=== PATIENT | male | born 1945 | race Caucasian/White ===

== ENCOUNTER 2020-10-17 09:58 | Emergency (ER) | payer MEDICARE ==
[2020-10-17 10:22] VITALS: PULSE 76
[2020-10-17] MEDS ORDERED: MORPHINE SULFATE 4 MG INJ IM ONE (10:42)
[2020-10-17] MEDS ORDERED: MORPHINE SULFATE 4 MG INJ ONE (10:55)
[2020-10-17 11:20] VITALS: O2SAT 96
[2020-10-17] MEDS ORDERED: NORCO 5/325 MG PO ONE ×2 (12:30→12:32)
--- NOTE | 2020-10-17 12:33 | ERPHSYRPT ---
- History of Present Illness Time Seen by Provider: 10/17/20 10:30 Source: patient Exam Limitations: no limitations Patient Subjective Stated Complaint: pt here for chronic back worse for the last month, he has one pain pill left . no injury Triage Nursing Assessment: pt alert, arrived per wc, face mask in place, resp easy, skin w/d/p. has edma to lower legs, able to get from wc to bed with assist of one and cane Physician History: 74 years old male with history of hypertension, hyperlipidemia, diabetes mellitus, chronic back pain who was on [place] for a long time and lately was decreased the dose/frequency and had some issue with filling the prescription presented in the ER with increasing pain in the low back especially in the right sacroiliac area was/hip without any recent fall or trauma. Patient is not very ambulatory at baseline but recently having more declined because of uncontrollable pain. Denies any numbness tingling or weakness of lower extremities. No loss of bowel or bladder control. Patient was coming to hospital for routine lab work check and decided to be seen in the ER to get some pain medication to help relieve. Timing/Duration: week(s), constant, worse Quality: sharp Back Pain Location: lumbar spine, paraspinous muscles Back Pain Radiation: buttocks Severity of Pain-Max: severe Severity of Pain-Current: severe Associated Symptoms: lower back pain, muscle spasms Previous symptoms: same symptoms as today Allergies/Adverse Reactions: brompheniramine maleate [From Dimetapp (brompheniramine-PPA)] Allergy (Intermediate, Verified 07/10/13 12:07) ciprofloxacin [From Cipro] Allergy (Intermediate, Verified 07/10/13 12:07) ciprofloxacin HCl [From Cipro] Allergy (Intermediate, Verified 07/10/13 12:07) phenylpropanolamine HCl [From Dimetapp (brompheniramine-PPA)] Allergy (Intermediate, Verified 07/10/13 12:07) Home Medications: Allopurinol 100 mg [Zyloprim 100 mg] 100 mg PO DAILY 07/10/13 [History] Amlodipine Besylate 10 mg [Norvasc 10 MG] 20 mg PO DAILY 07/10/13 [History] Aspirin EC 325 mg [Ecotrin 325 MG] 325 mg PO DAILY 07/10/13 [History] Esomeprazole Magnesium [Nexium] 40 mg PO DAILY 07/10/13 [History] Ezetimibe [Zetia] 10 mg PO DAILY 07/10/13 [History] Gabapentin 600 mg PO BID 07/10/13 [History] Insulin Glargine [Lantus Insulin] 60 units SQ BID 07/10/13 [History] Montelukast Sodium 10 mg PO DAILY 07/10/13 [History] Potassium Chloride [K-Dur] 20 meq PO BID 07/10/13 [History] Pravastatin Sodium 40 mg PO HS 07/10/13 [History] Hx Tetanus, Diphtheria Vaccination/Date Given: No Hx Influenza Vaccination/Date Given: Yes Hx Pneumococcal Vaccination/Date Given: Yes Immunizations Up to Date: Yes Travel Risk - International Travel Have you traveled outside of the country in past 3 weeks: No - Coronavirus Screening Are you exhibiting any of the following symptoms?: No Close contact with a COVID-19 positive Pt in past 14-21 Days: No - Vaccine Status Have you recieved a Covid-19 vaccination: Yes 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: [facility] - Vaccination Dates Date of 2cond Vaccination (if applicable): august 2020 - Review of Systems Constitutional: No Symptoms Ears, Nose, & Throat: No Symptoms Respiratory: No Symptoms Cardiac: No Symptoms Abdominal/Gastrointestinal: No Symptoms Genitourinary Symptoms: No Symptoms Musculoskeletal: Arthralgias, Back Pain Psychological: No Symptoms Endocrine: No Symptoms Hematologic/Lymphatic: No Symptoms - Past Medical History Pertinent Past Medical History: Yes Neurological History: Peripheral Neuropathy, Stroke ENT History: Cataracts, Glaucoma, Other Cardiac History: Coronary Artery Disease, High Cholesterol, Hypertension, Myocardial Infarction (AR), Peripheral Vascular Disease Respiratory History: No Pertinent History Endocrine Medical History: Diabetes Type I Musculoskeletal History: Arthritis GI Medical History: Hepatitis, Irritable Bowel History: No Pertinent History Psycho-Social History: Anxiety, Depression Male Reproductive Disorders: No Pertinent History Other Medical History: Hepatitis A in 1985 - Past Surgical History Past Surgical History: Yes Neuro Surgical History: No Pertinent History Cardiac: CABG, Cardiac Catheterization Respiratory: No Pertinent History Gastrointestinal: Cholecystectomy Genitourinary: No Pertinent History Musculoskeletal: No Pertinent History Male Surgical History: Vasectomy Other Surgical History: skin cancers - basil cell carcinomas - Social History Smoking Status: Former smoker Exposure to second hand smoke: No Drug Use: none Patient Lives Alone: Yes - Nursing Vital Signs Nursing Vital Signs: Initial Vital Signs Temperature 96.2 F 10/17/20 10:17 Pulse Rate 76 10/17/20 10:17 Respiratory Rate 18 10/17/20 10:17 Blood Pressure 145/65 10/17/20 10:17 O2 Sat by Pulse Oximetry 99 10/17/20 10:17 Pain Scale Pain Intensity [Back] 10 Pain Intensity 8 - Physical Exam General Appearance: no apparent distress, alert Eye Exam: PERRL/EOMI Neck Exam: normal inspection, full range of motion Respiratory Exam: normal breath sounds, lungs clear Cardiovascular Exam: regular rate/rhythm, normal heart sounds Gastrointestinal Exam: soft, normal bowel sounds, No tenderness Back Exam: normal inspection, decreased range of motion, muscle spasm, point tenderness (Minimal lumbar tenderness, more in the lumbar paraspinal area and sacroiliac area bilaterally more on the right side. Straight leg raise test positive on right with 45 degrees elevation. Intact distal neurovascular and lower extremities bilaterally.) Extremity Exam: normal inspection, normal range of motion, pelvis stable Neurologic Exam: alert, oriented x 3, cooperative Skin Exam: normal color SpO2 Interpretation: normal SpO2: 96 O2 Delivery: Room Air Ordered Tests: Medication Summary Discontinued Medications Generic Name Dose Route Start Last Admin Trade Name Freq PRN Reason Stop Dose Admin Hydrocodone Bitart/Acetaminophen 2 tab 10/17/20 12:30 10/17/20 12:38 [place] 5/325 Mg PO 10/17/20 12:31 2 tab STAT ONE Administration Hydrocodone Bitart/Acetaminophen 2 tab 10/17/20 12:32 10/17/20 12:38 [place] 5/325 Mg PO 10/17/20 12:33 2 tab SENT HOME W/ PATIENT ONE Administration Hydrocodone Bitart/Acetaminophen Confirm 10/17/20 12:35 [place] 5/325 Mg Administered 10/17/20 12:36 Dose 4 tab .ROUTE .STK-MED ONE Morphine Sulfate 4 mg 10/17/20 10:42 10/17/20 10:56 Morphine Sulfate 4 Mg Inj IM 10/17/20 10:43 4 mg STAT ONE Administration Morphine Sulfate Confirm 10/17/20 10:55 Morphine Sulfate 4 Mg Inj Administered 10/17/20 10:56 Dose 4 mg .ROUTE .STK-MED ONE - Progress Progress: improved, pain not gone completely, re-examined Progress Note: 10/17/20 12:31 Is given morphine and oral [place], reevaluation feeling better, pain is not completely resolved. Patient has chronic pain, negative neuro exam in lower extremity, do not think needs any imaging but patient does need to follow-up outpatient with primary care or pain management for better control of pain. It was a difficult encounter as patient could not understand why he is not getting pain medications from his primary care or in the ER to go home and also lab could not draw blood for outpatient orders. I think patient's symptoms are chronic and need to see pain management or PCP. He is given 2 tablets to go home and outpatient follow-up with his PCP on Tuesday to see if he can get another prescription. Discussed signs symptoms of worsening needing return to ER which he seems understanding. Stable for discharge. Counseled pt/family regarding: diagnosis, need for follow-up - Departure Departure Disposition: Home Clinical Impression: Acute exacerbation of chronic low back pain Condition: Stable Critical Care Time: No Referrals: PAM PUENTES MD [Primary Care Provider] - Follow Up with PCP/3 days Instructions: Low Back Pain (DC) Additional Instructions: Follow-up with primary care physician for reevaluation. Return to ER for intractable back pain, numbness tingling weakness of lower extremities/loss of bowel or bladder control/perineal numbness.
[2020-10-17] MEDS ORDERED: NORCO 5/325 MG ONE (12:35)
[2020-10-17 13:13] VITALS: BP 113/65
== END 2020-10-17 13:13 | disposition home or self-care (01) ==
LOC: ED 09:58
DX: M54.5 Low back pain (principal); I10 Essential (primary) hypertension; E78.5 Hyperlipidemia, unspecified; E10.9 Type 1 diabetes mellitus without complications; Z79.891 Long term (current) use of opiate analgesic; R25.2 Cramp and spasm; Z79.899 Other long term (current) drug therapy; I25.10 Atherosclerotic heart disease of native coronary artery without angina pectoris
CPT/HCPCS: 36415; 80053; 80061; 82306; 82550; 83036; 83721; 84443; 85025; 96372; 99284; G0103; J2270; A9270-GY

== ENCOUNTER 2021-01-07 09:53 | Day surgery (SDC) | payer MEDICARE ==
[2021-01-07] MEDS ORDERED: Depo-Medrol 40 MG/ML IM ONE (09:54)
[2021-01-07] MEDS ORDERED: Xylocaine 1% Vial 30 ML PF IJ ONE (09:54)
[2021-01-07] MEDS ORDERED: DIPRIVAN 200 MG/20 ML IV ONE (11:41)
[2021-01-07] MEDS ORDERED: Lactated Ringers 1,000 ML IV ONE (12:16)
--- NOTE | 2021-01-07 13:37 | XRAY ---
Indication: Bilateral L4-S1 MBB. Intraoperative fluoroscopy provided for 21 seconds. Single digital spot image submitted for interpretation demonstrates posterior needle tips projecting over the expected left and right L4-S1 nerve roots. Correlate with intraoperative findings/report.
--- NOTE | 2021-01-07 13:40 | XRAY ---
21 seconds fluoroscopy time in surgery for bilateral L4-S1 MBB.
== END 2021-01-07 12:05 | disposition home or self-care (01) ==
LOC: SDC-PAIN 09:53
PROVIDERS: ATTEND Psychiatry & Neurology Pain Medicine
DX: M47.816 Spondylosis without myelopathy or radiculopathy, lumbar region (principal); I10 Essential (primary) hypertension; E78.5 Hyperlipidemia, unspecified; E11.9 Type 2 diabetes mellitus without complications; F41.9 Anxiety disorder, unspecified; F32.9 Major depressive disorder, single episode, unspecified; Z79.899 Other long term (current) drug therapy
CPT/HCPCS: 64493; 64494; 72020; 77002; 82947; J1030; J2001; J2704

== ENCOUNTER 2021-02-18 07:52 | Day surgery (SDC) | payer MEDICARE ==
[2021-02-18] MEDS ORDERED: Depo-Medrol 40 MG/ML IM ONE (07:53)
[2021-02-18] MEDS ORDERED: BUPIVACAINE 0.5% VIAL IJ ONE (07:53)
[2021-02-18] MEDS ORDERED: DIPRIVAN 200 MG/20 ML IV ONE (09:08)
[2021-02-18] MEDS ORDERED: Lactated Ringers 1,000 ML IV ONE (10:02)
--- NOTE | 2021-02-18 11:07 | XRAY ---
14 seconds of fluoroscopy was used in surgery for a bilateral L4-S1 MBB.
--- NOTE | 2021-02-18 11:15 | XRAY ---
Indication: Bilateral L4-S1 MBB. Intraoperative fluoroscopy provided for 14 seconds. Single digital spot image submitted for interpretation demonstrate posterior needle tips projecting over the expected left and right L4-S1 nerve roots. Correlate with intraoperative findings/report.
== END 2021-02-18 09:37 | disposition home or self-care (01) ==
LOC: SDC-PAIN 07:52
PROVIDERS: ATTEND Psychiatry & Neurology Pain Medicine
DX: M47.816 Spondylosis without myelopathy or radiculopathy, lumbar region (principal); I10 Essential (primary) hypertension; E11.9 Type 2 diabetes mellitus without complications; Z79.899 Other long term (current) drug therapy
CPT/HCPCS: 64493; 64494; 72020; 77002; 82947; J1030; J2704

== ENCOUNTER 2021-03-18 07:00 | Day surgery (SDC) | payer MEDICARE ==
[2021-03-18] MEDS ORDERED: Depo-Medrol 40 MG/ML IM ONE (07:01)
[2021-03-18] MEDS ORDERED: BUPIVACAINE 0.5% VIAL IJ ONE (07:01)
[2021-03-18] MEDS ORDERED: Xylocaine 1% Vial 30 ML PF IJ ONE (07:01)
[2021-03-18] MEDS ORDERED: DIPRIVAN 200 MG/20 ML IV ONE (08:15)
[2021-03-18] MEDS ORDERED: Lactated Ringers 1,000 ML IV ONE (09:28)
--- NOTE | 2021-03-18 09:46 | XRAY ---
52 seconds fluoroscopy time in surgery for left L4-S1 RFA.
--- NOTE | 2021-03-18 09:56 | XRAY ---
Indication: Left L4-S1 RFA. Intraoperative fluoroscopy provided for 52 seconds. 3 digital spot image submitted for interpretation demonstrates posterior needle tips projecting over the expected left L4-S1 nerve roots. Correlate with intraoperative findings/report.
== END 2021-03-18 08:49 | disposition home or self-care (01) ==
LOC: SDC-PAIN 07:00
PROVIDERS: ATTEND Psychiatry & Neurology Pain Medicine
DX: M47.816 Spondylosis without myelopathy or radiculopathy, lumbar region (principal); I10 Essential (primary) hypertension; E11.9 Type 2 diabetes mellitus without complications; E78.5 Hyperlipidemia, unspecified; Z79.899 Other long term (current) drug therapy
CPT/HCPCS: 64635; 64636; 72100; 77002; 82947; 99100; J1030; J2001; J2704

== ENCOUNTER 2021-04-01 06:53 | Day surgery (SDC) | payer MEDICARE ==
[2021-04-01] MEDS ORDERED: BUPIVACAINE 0.5% VIAL IJ ONE (06:54)
[2021-04-01] MEDS ORDERED: Depo-Medrol 40 MG/ML IM ONE (06:54)
[2021-04-01] MEDS ORDERED: Xylocaine 1% Vial 30 ML PF IJ ONE (06:54)
[2021-04-01] MEDS ORDERED: DIPRIVAN 200 MG/20 ML IV ONE (08:20)
[2021-04-01] MEDS ORDERED: Lactated Ringers 1,000 ML IV ONE (09:03)
--- NOTE | 2021-04-01 10:30 | XRAY ---
Indication: Right L4-S1 RFA. Intraoperative fluoroscopy provided for 24 seconds. 3 digital spot images submitted for interpretation demonstrates posterior needle tips projecting over the expected right L4-S1 nerve root. Correlate with intraoperative findings/report.
--- NOTE | 2021-04-01 10:33 | XRAY ---
24 seconds fluoroscopy time in surgery for right L4-S1 RFA.
== END 2021-04-01 08:35 | disposition home or self-care (01) ==
LOC: SDC-PAIN 06:53
PROVIDERS: ATTEND Psychiatry & Neurology Pain Medicine
DX: M47.816 Spondylosis without myelopathy or radiculopathy, lumbar region (principal); E11.9 Type 2 diabetes mellitus without complications; Z79.899 Other long term (current) drug therapy
CPT/HCPCS: 64635; 64636; 72100; 77002; 82947; 99100; J1030; J2001; J2704

== ENCOUNTER 2021-06-08 12:28 | Inpatient (IN) | payer MEDICARE ==
[2021-06-08] MEDS ORDERED: Sodium Chloride 0.9% 1000 ML 1,000 ML IV SCH (12:45)
[2021-06-08] MEDS ORDERED: Sodium Chloride 0.9% 1000 ML 1,000 ML ONE (13:00)
[2021-06-08 13:19] LABS: Basophil (Absolute #) 0.02 (0-0.4); Eosinophil % 0.9 % (0.00-5.0); Eosinophil (Absolute #) 0.07 (0-0.5); Hematocrit 40.9 % (42-50); Hemoglobin 13.5 gm/dl (12.5-18.0); Lymphocyte (Absolute #) 2.22 (1.0-4.6); Lymphocytes % 29.2 % (24.0-44.0); Mean Cell Volume 97.6 fl (78-100); Mean Corpuscular Hemoglobin 32.2 pg (26-32); Mean Platelet Volume 9.2 fl (7.5-11.0); Monocyte (Absolute #) 1.09 (0.0-1.3); Monocytes % 14.3 % (0.0-12.0); Neutrophil % 55.3 % (36.0-66.0); Platelet Count 295 K/mm3 (150-450); Red Blood Count 4.19 M/mm3 (4.1-5.6); Red Cell Distribution Width 13.2 % (11.5-14.0); White Blood Count 7.6 K/mm3 (4.0-10.5)
[2021-06-08 13:27] LABS: INR 1.1 (0.8-3.0)
[2021-06-08 13:32] LABS: ALBUMIN 3.9 g/dL (3.5-5.0); ALKALINE PHOSPHATASE 61 U/L (38-126); AMYLASE 43 U/L (30-110); ANION GAP 20.6 MEQ/L (5-15); BLOOD UREA NITROGEN 30 mg/dL (9-20); CHLORIDE 103 mmol/L (98-107); Calcium 9.5 mg/dL (8.4-10.2); Carbon Dioxide 19 mmol/L (22-30); Creatinine 1 1.19 mg/dL (0.66-1.25); EST GLOMERULAR FILTRATION RATE > 60.0 ML/MIN; Glucose 227 mg/dL (74-106); LIPASE 15 U/L (23-300); SGOT/AST 34 U/L (17-59); SGPT/ALT 16 U/L (0-50); SODIUM 138 mmol/L (137-145); Total Protein 7.1 g/dL (6.3-8.2)
[2021-06-08 13:38] LABS: Potassium 4.8 mmol/L (3.5-5.1)
--- NOTE | 2021-06-08 14:16 | XRAY ---
Indication: Pain. Comparison: September 04, 2013. Portable chest remains clear again with incidental right base calcified granuloma. Heart not enlarged again with CABG. Bony thorax intact again with osteopenia and degenerative changes. Impression: Continued nonacute chest with chronic features.
--- NOTE | 2021-06-08 14:16 | XRAY ---
Indication: Status post fall 3 days ago. Multiple contiguous axial images obtained through the head without contrast. Progress comparison: None Age-appropriate global atrophy and mild periventricular degenerative micro-ischemia bilaterally. Remote lacunar infarcts left basal ganglia and posterior limb left internal capsule. No acute intracranial hemorrhage, abnormal extra-axial fluid collection, or mass effect. Fourth ventricle is midline without hydrocephalus. Bony calvarium intact. Minimal mucosal thickening both ethmoid and both maxillary sinuses with tiny fluid level in. Mastoid air cells are clear. Impression: Nonacute senile brain. Remote lacunar infarcts left basal ganglia and left internal capsule. Incidental paranasal sinus disease.
--- NOTE | 2021-06-08 14:20 | XRAY ---
Indication: Back and bilateral hip pain following fall 3 days ago. Multiple contiguous axial images obtained through the abdomen and pelvis without contrast. Comparison: None Lung bases demonstrates minimal subsegmental atelectasis/scarring and small right middle lobe calcified granuloma. Heart not enlarged with CABG. Noncontrasted stomach and bowel loops appear nonobstructed. Minimal scattered descending and sigmoid diverticulosis without diverticulitis. Previous cholecystectomy. 1.1 cm right mid renal cortical cyst. No free fluid/air. Remaining liver, pancreas, spleen, adrenal glands, kidneys, ureters, and bladder are unremarkable for noncontrast exam. Mild scattered vascular calcifications including both renal/intrarenal arteries. Osseous structures intact with osteopenia, mild/moderate ejected changes throughout the thoracolumbar spine, remote L2 superior endplate fracture with approximately 25% height loss. Moderate left and small right fatty inguinal hernias. Impression: 1. Colonic diverticulosis, right renal cyst, diffuse arteriosclerotic disease, chronic bony findings, bilateral fatty inguinal hernias, and old granulomatous disease. 2. Remaining CT abdomen/pelvis without contrast exam is negative.
--- NOTE | 2021-06-08 17:42 | ERPHSYRPT ---
- History of Present Illness Time Seen by Provider: 06/08/21 12:40 Patient Subjective Stated Complaint: PT HERE FOR FREQUENT FALLS AND EMS STATES HE WAS INCONT OF STOOL THIS WEEKEND, PT STATES HE DOES NOT USE A WALKER AND GETS DIZZY AND FALLS, Triage Nursing Assessment: PT ARRIVED PER AMBULANCE, ALERT, ORIENTED, RESP EASY, FACE MASK IN PLACE, HAS BRUISE TO RIGHT SHOULDER, ABRASION TOP OF HEAD, AND OPEN WOUND TO BOTTOM OF LEFT FOOT WITH ABRASION TO 2ND AND 3RD TOES, HE HAS AMPUTAION OF LEFT GREAT TOE Physician History: Patient is a 75-year-old male who presents with a complaint of frequent falls. He has chronic low back pain and refuses to use a walker. He is diabetic and he also complains of a diabetic ulcer x2 on the left foot. He does have chronic back pain. He had some incontinence over the weekend. Timing/Duration: week(s) (1) Severity: moderate Modifying Factors: Improves With: movement Associated Symptoms: weakness Allergies/Adverse Reactions: brompheniramine maleate [From Dimetapp (brompheniramine-PPA)] Allergy (Int ermediate, Verified 07/10/13 12:07) ciprofloxacin [From Cipro] Allergy (Intermediate, Verified 07/10/13 12:07) ciprofloxacin HCl [From Cipro] Allergy (Intermediate, Verified 07/10/13 12:07) phenylpropanolamine HCl [From Dimetapp (brompheniramine-PPA)] Allergy (Intermediate, Verified 07/10/13 12:07) Home Medications: Allopurinol 100 mg [Zyloprim 100 mg] 100 mg PO DAILY 07/10/13 [History] Amlodipine Besylate 10 mg [Norvasc 10 MG] 20 mg PO DAILY 07/10/13 [History] Aspirin EC 325 mg [Ecotrin 325 MG] 81 mg PO DAILY 07/10/13 [History] Insulin Glargine [Lantus Insulin] 60 units SQ BID 07/10/13 [History] Cilostazol 100 mg [Pletal 100 MG] 1 ea DAILY 06/08/21 [History] Pantoprazole Sodium 1 ea DAILY 06/08/21 [History] Rosuvastatin Calcium [Ezallor Sprinkle] 1 ea DAILY 06/08/21 [History] Venlafaxine HCl [Venlafaxine HCl ER] 1 ea DAILY 06/08/21 [History] Hx Tetanus, Diphtheria Vaccination/Date Given: No Hx Influenza Vaccination/Date Given: Yes Hx Pneumococcal Vaccination/Date Given: Yes Immunizations Up to Date: Yes Travel Risk - International Travel Have you traveled outside of the country in past 3 weeks: No - Coronavirus Screening Are you exhibiting any of the following symptoms?: No Close contact with a COVID-19 positive Pt in past 14-21 Days: No - Vaccine Status Have you recieved a Covid-19 vaccination: Yes Knapsack Sprayer: Moderna - Vaccination Dates Date of 2cond Vaccination (if applicable): august 2020 - Review of Systems Constitutional: No Fever, No Chills Eyes: No Symptoms Ears, Nose, & Throat: No Symptoms Respiratory: No Cough, No Dyspnea Cardiac: No Chest Pain, No Edema, No Syncope Abdominal/Gastrointestinal: No Abdominal Pain, No Nausea, No Vomiting, No Diarrhea Genitourinary Symptoms: No Dysuria Musculoskeletal: No Back Pain, No Neck Pain Skin: No Rash Neurological: Dizziness, Gait Changes, Headache, Lethargy, No Focal Weakness, No Sensory Changes Psychological: No Symptoms Endocrine: No Symptoms All Other Systems: Reviewed and Negative - Past Medical History Pertinent Past Medical History: Yes Neurological History: Peripheral Neuropathy, Stroke ENT History: Cataracts, Glaucoma, Other Cardiac History: Coronary Artery Disease, High Cholesterol, Hypertension, Myocardial Infarction (CT), Peripheral Vascular Disease Respiratory History: No Pertinent History Endocrine Medical History: Diabetes Type I Musculoskeletal History: Arthritis GI Medical History: Hepatitis, Irritable Bowel History: No Pertinent History Psycho-Social History: Anxiety, Depression Male Reproductive Disorders: No Pertinent History Other Medical History: Hepatitis A in 1985 - Past Surgical History Past Surgical History: Yes Neuro Surgical History: No Pertinent History Cardiac: CABG, Cardiac Catheterization Respiratory: No Pertinent History Gastrointestinal: Cholecystectomy Genitourinary: No Pertinent History Musculoskeletal: No Pertinent History Male Surgical History: Vasectomy Other Surgical History: skin cancers - basil cell carcinomas - Social History Smoking Status: Former smoker Exposure to second hand smoke: No Drug Use: none Patient Lives Alone: Yes - Nursing Vital Signs Nursing Vital Signs: Initial Vital Signs Temperature 97.5 F 06/08/21 12:33 Pulse Rate 113 H 06/08/21 12:33 Respiratory Rate 18 06/08/21 12:33 Blood Pressure 140/77 06/08/21 12:33 Pain Scale Pain Intensity 7 - Physical Exam General Appearance: mild distress, alert Eye Exam: PERRL/EOMI, eyes nml inspection Ears, Nose, Throat Exam: normal ENT inspection, TMs normal, pharynx normal, mo ist mucous membranes Neck Exam: normal inspection, non-tender, supple, full range of motion Respiratory Exam: normal breath sounds, lungs clear, No respiratory distress Cardiovascular Exam: regular rate/rhythm, normal heart sounds, normal peripheral pulses Gastrointestinal/Abdomen Exam: soft, normal bowel sounds, No tenderness, No mass Back Exam: normal inspection, normal range of motion, No CVA tenderness, No vertebral tenderness Extremity Exam: normal inspection, normal range of motion, pelvis stable Neurologic Exam: alert, oriented x 3, cooperative, normal mood/affect, nml cerebellar function, nml station & gait, sensation nml, No motor deficits Skin Exam: normal color, warm, dry, No rash Lymphatic Exam: No adenopathy SpO2: 97 - Course Nursing assessment & vital signs reviewed: Yes EKG Interpreted by Me: RATE (114), Sinus Tach, Other (Left axis deviation and left anterior fascicular block) - Radiology Exams Chest X-ray Interpretation: Interpreted by me, Other (No acute findings) - CT Exams Head CT Interpretation: Tele-radiologist Report Abdomen/Pelvis CT Interpretation: Tele-radiologist Report, Other Ordered Tests: Active Orders 24 hr Category Date Time Status EKG-ER Only STAT Care 06/08/21 12:36 Active IV Insertion STAT Care 06/08/21 12:36 Active cath [Cath for Specimen-Straight] STAT Care 06/08/21 14:51 Active ABDOMEN AND PELVIS W/0 CONTRAS [CT] Stat Exams 06/08/21 13:55 Completed CHEST 1 VIEW (PORTABLE) Stat Exams 06/08/21 12:37 Completed HEAD WITHOUT CONTRAST [CT] Stat Exams 06/08/21 12:41 Completed AMYLASE Stat Lab 06/08/21 12:44 Completed BLOOD CULTURE Stat Lab 06/08/21 13:35 Received CBC W DIFF Stat Lab 06/08/21 12:45 Completed CMP Stat Lab 06/08/21 12:44 Completed LIPASE Stat Lab 06/08/21 12:44 Completed Lactic Acid Stat Lab 06/08/21 12:44 Completed Lactic Acid Stat Lab 06/08/21 15:30 Received PROTIME WITH INR Stat Lab 06/08/21 12:44 Completed TROPONIN Q3H Lab 06/08/21 12:45 Completed TROPONIN Q3H Lab 06/08/21 15:00 Completed TROPONIN Q3H Lab 06/08/21 18:45 Ordered TROPONIN Q3H Lab 06/08/21 21:45 Ordered TROPONIN Q3H Lab 06/09/21 00:45 Ordered UA W/RFX CULTURE Stat Lab 06/08/21 14:51 Ordered Medication Summary Generic Name Dose Route Start Last Admin Trade Name Jolene PRN Reason Stop Dose Admin Sodium Chloride 1,000 mls @ 200 mls/hr 06/08/21 12:45 06/08/21 13:02 Sodium Chloride 0.9% 1000 Ml IV 07/08/21 12:44 200 mls/hr .Q5H AMBROSE Administration Lab/Rad Data: Laboratory Result Diagrams 06/08/21 12:45 06/08/21 12:44 Laboratory Results 06/08/21 06/08/21 06/08/21 Range/Units 15:00 12:45 12:45 WBC 7.6 (4.0-10.5) K/mm3 RBC 4.19 (4.1-5.6) M/mm3 Hgb 13.5 (12.5-18.0) gm/dl Hct 40.9 L (42-50) % MCV 97.6 (78-100) fl MCH 32.2 H (26-32) pg MCHC 33.0 (32-36) g/dl RDW 13.2 (11.5-14.0) % Plt Count 295 (150-450) K/mm3 MPV 9.2 (7.5-11.0) fl Gran % 55.3 (36.0-66.0) % Eos # (Auto) 0.07 (0-0.5) Absolute Lymphs (auto) 2.22 (1.0-4.6) Absolute Monos (auto) 1.09 (0.0-1.3) Lymphocytes % 29.2 (24.0-44.0) % Monocytes % 14.3 H (0.0-12.0) % Eosinophils % 0.9 (0.00-5.0) % Basophils % 0.3 (0.0-0.4) % Absolute Granulocytes 4.20 (1.4-6.9) Basophils # 0.02 (0-0.4) PT (9.4-12.5) SECONDS INR (0.8-3.0) Sodium (137-145) mmol/L Potassium (3.5-5.1) mmol/L Chloride (98-107) mmol/L Carbon Dioxide (22-30) mmol/L Anion Gap (5-15) MEQ/L BUN (9-20) mg/dL Creatinine (0.66-1.25) mg/dL Estimated GFR ML/MIN Glucose (74-106) mg/dL Lactic Acid (0.4-2.0) Calcium (8.4-10.2) mg/dL Total Bilirubin (0.2-1.3) mg/dL AST (17-59) U/L ALT (0-50) U/L Alkaline Phosphatase (38-126) U/L Troponin I 0.039 H* 0.041 H* (0.000-0.034) ng/mL Serum Total Protein (6.3-8.2) g/dL Albumin (3.5-5.0) g/dL Amylase (30-110) U/L Lipase (23-300) U/L 06/08/21 06/08/21 06/08/21 Range/Units 12:44 12:44 12:44 WBC (4.0-10.5) K/mm3 RBC (4.1-5.6) M/mm3 Hgb (12.5-18.0) gm/dl Hct (42-50) % MCV (78-100) fl MCH (26-32) pg MCHC (32-36) g/dl RDW (11.5-14.0) % Plt Count (150-450) K/mm3 MPV (7.5-11.0) fl Gran % (36.0-66.0) % Eos # (Auto) (0-0.5) Absolute Lymphs (auto) (1.0-4.6) Absolute Monos (auto) (0.0-1.3) Lymphocytes % (24.0-44.0) % Monocytes % (0.0-12.0) % Eosinophils % (0.00-5.0) % Basophils % (0.0-0.4) % Absolute Granulocytes (1.4-6.9) Basophils # (0-0.4) PT 13.0 H (9.4-12.5) SECONDS INR 1.10 (0.8-3.0) Sodium 138 (137-145) mmol/L Potassium 4.8 (3.5-5.1) mmol/L Chloride 103 (98-107) mmol/L Carbon Dioxide 19 L (22-30) mmol/L Anion Gap 20.6 H (5-15) MEQ/L BUN 30 H (9-20) mg/dL Creatinine 1.19 (0.66-1.25) mg/dL Estimated GFR > 60.0 ML/MIN Glucose 227 H (74-106) mg/dL Lactic Acid 2.1 H (0.4-2.0) Calcium 9.5 (8.4-10.2) mg/dL Total Bilirubin 0.90 (0.2-1.3) mg/dL AST 34 (17-59) U/L ALT 16 (0-50) U/L Alkaline Phosphatase 61 (38-126) U/L Troponin I (0.000-0.034) ng/mL Serum Total Protein 7.1 (6.3-8.2) g/dL Albumin 3.9 (3.5-5.0) g/dL Amylase 43 (30-110) U/L Lipase 15 L (23-300) U/L - Progress Progress: unchanged Discussed with : Ladonna (Discussed with Dr. Jerez patient will be admitted observation for MRI tomorrow and a podiatry referral and consultation) - Departure Departure Disposition: Observation Clinical Impression: Falls frequently, Lacunar infarction, Diabetic ulcer of left foot Condition: Fair Critical Care Time: No Referrals: PAM PUENTES MD [Primary Care Provider] - Follow up/PCP as directed
[2021-06-08 18:28] LABS: INFLUENZA A NEGATIVE (NEGATIVE); INFLUENZA B NEGATIVE (NEGATIVE); RESPIRATORY SYNCTIAL VIRUS NEGATIVE (Negative); SARS-CoV-2 Xpert Express NEGATIVE (NEGATIVE)
[2021-06-08 18:47] LABS: Appearance CLEAR (CLEAR); Bilirubin MODERATE (NEGATIVE); Dipstick done @ ? MAIN LAB; Glucose 500 mg/dL (NEGATIVE); Ketones SMALL-15 (NEGATIVE); Nitrite NEGATIVE (NEGATIVE); Ph 5.5 (5-6); Protein,Urine Dip NEGATIVE (Negative); RBC NEGATIVE Ery/ul (0-5); Specific Gravity >=1.030 (1.005-1.025); Urobilinogen 0.2 mg/dL (0-1)
[2021-06-08 18:48] LABS: Mucus SLIGHT /HPF (NEGATIVE); Urine Cultured Indicated? YES; WBC 0-2 /HPF (0-5)
[2021-06-08 19:29] LABS: TSH, 3RD Generation 2.19 mIU/L (0.47-4.68)
[2021-06-08] MEDS: Sodium Chloride 0.9% 1000 ML 1,000 ML IV SCH (21:26)
[2021-06-08] MEDS ORDERED: Lantus Insulin SQ ONE (22:13)
[2021-06-08] MEDS: HUMALOG SQ PRN (22:26)
[2021-06-09 05:00] LABS: Absolute Neutrophil Ct (ANC) 2.66 (1.4-6.9); Basophil (Absolute #) 0.02 (0-0.4); Eosinophil % 3.5 % (0.00-5.0); Eosinophil (Absolute #) 0.23 (0-0.5); Hematocrit 38.8 % (42-50); Hemoglobin 12.8 gm/dl (12.5-18.0); Lymphocytes % 41.3 % (24.0-44.0); Mean Cell Volume 98.5 fl (78-100); Mean Corpuscular Hemoglobin 32.5 pg (26-32); Mean Platelet Volume 8.9 fl (7.5-11.0); Monocyte (Absolute #) 0.93 (0.0-1.3); Monocytes % 14.2 % (0.0-12.0); Neutrophil % 40.7 % (36.0-66.0); Platelet Count 273 K/mm3 (150-450); Red Blood Count 3.94 M/mm3 (4.1-5.6); White Blood Count 6.5 K/mm3 (4.0-10.5)
[2021-06-09 05:21] LABS: ALBUMIN 3.4 g/dL (3.5-5.0); ALKALINE PHOSPHATASE 56 U/L (38-126); ANION GAP 13.4 MEQ/L (5-15); BLOOD UREA NITROGEN 23 mg/dL (9-20); CHLORIDE 106 mmol/L (98-107); Calcium 8.9 mg/dL (8.4-10.2); Carbon Dioxide 24 mmol/L (22-30); Creatinine 1 1.08 mg/dL (0.66-1.25); EST GLOMERULAR FILTRATION RATE > 60.0 ML/MIN; Glucose 98 mg/dL (74-106); Potassium 3.7 mmol/L (3.5-5.1); SGOT/AST 25 U/L (17-59); SGPT/ALT 13 U/L (0-50); SODIUM 139 mmol/L (137-145); Total Protein 6.6 g/dL (6.3-8.2)
[2021-06-09] MEDS: Sodium Chloride 0.9% 1000 ML 1,000 ML IV SCH ×2 (06:17→19:57)
[2021-06-09] MEDS ORDERED: MEDICATION INTERVENTION MC SCH (07:30)
[2021-06-09] MEDS: Pletal 100 MG PO SCH (09:32)
[2021-06-09] MEDS: Effexor XR 75 MG PO SCH (09:32)
[2021-06-09] MEDS: Tricor 145 MG PO SCH (09:33)
[2021-06-09] MEDS: ECOTRIN 81 MG PO SCH (09:33)
[2021-06-09] MEDS: ZOCOR 20MG PO SCH (09:34)
[2021-06-09] MEDS: Zestril 20 MG PO SCH (09:34)
[2021-06-09] MEDS: ZYLOPRIM 100 MG PO SCH (09:34)
[2021-06-09] MEDS: Protonix 40MG Tablet PO SCH (09:34)
[2021-06-09] MEDS ORDERED: Ecotrin 325 MG PO SCH (10:00)
[2021-06-09] MEDS ORDERED: Effexor ER 37.5 MG PO SCH (10:00)
[2021-06-09] MEDS ORDERED: NON-FORMULARY ITEM (Bisoprolol Fumarate [Bisoprolol Fumarate] 10 MG Tablet) PO SCH (10:00)
[2021-06-09] MEDS ORDERED: FENOFIBRATE 40 MG PO SCH (10:00)
[2021-06-09] MEDS ORDERED: ROSUVASTATIN CALCIUM 20 MG PO SCH (10:00)
[2021-06-09] MEDS: HUMALOG SQ PRN ×3 (12:31→22:08)
--- NOTE | 2021-06-09 12:37 | XRAY ---
Indication: Weakness. Recent falls. Nonacute CT head one day earlier. Sagittal, coronal, and axial MRI brain performed without contrast using T1, T2, FLAIR, diffusion, and ADC sequences. Comparison: None Exam was ordered with contrast but patient refused. Age-appropriate global atrophy with tiny remote lacunar infarct left basal ganglia/posterior limb internal capsule. Brainstem demonstrates a few petechial degenerative micro-ischemia signal. Diffusion images are negative for restricted signal. No acute intracranial hemorrhage, abnormal extra-axial fluid collection, or mass effect. Fourth ventricle is midline without hydrocephalus. Normal flow void signal within the major intracerebral circulation. 7/8 cranial nerve complex bilaterally symmetric. Normal flow-void signal within the major intracerebral circulation. Normal appearing craniocervical junction and sella turcica. Minimal mucosal thickening visualized paranasal sinuses bilaterally. Impression: 1. Atrophy and degenerative micro-ischemia within normal limits for patient's age. Tiny remote lacunar infarct left basal ganglia/internal capsule. 2. No acute intracranial abnormalities or evidence for evolving large vessel territorial stroke. 3. Incidental paranasal sinus disease.
[2021-06-09] MEDS ORDERED: Zofran 4 MG/2 ML VIAL IV PRN (14:51)
[2021-06-09] MEDS ORDERED: Lopressor 50 MG PO ONE (16:00)
[2021-06-09] MEDS ORDERED: Lantus Insulin SQ ONE (22:00)
[2021-06-09] MEDS: Lantus Insulin SQ SCH (22:08)
[2021-06-10] MEDS: Sodium Chloride 0.9% 1000 ML 1,000 ML IV SCH ×2 (05:50→15:43)
[2021-06-10] MEDS: PATIENT OWN MEDICATION PO SCH (09:53)
[2021-06-10] MEDS: ZOCOR 20MG PO SCH (09:54)
[2021-06-10] MEDS: ZYLOPRIM 100 MG PO SCH (09:54)
[2021-06-10] MEDS: Protonix 40MG Tablet PO SCH (09:54)
[2021-06-10] MEDS: ECOTRIN 81 MG PO SCH (09:54)
[2021-06-10] MEDS: Effexor XR 75 MG PO SCH (09:55)
[2021-06-10] MEDS: JARDIANCE PO SCH (09:56)
[2021-06-10] MEDS: Pletal 100 MG PO SCH (09:56)
[2021-06-10] MEDS: Lantus Insulin SQ SCH ×2 (09:56→22:44)
[2021-06-10] MEDS: Zestril 20 MG PO SCH (09:56)
[2021-06-10] MEDS: LOTRIMIN CREAM 30 GM TP SCH ×2 (09:56→22:44)
[2021-06-10] MEDS: Tricor 145 MG PO SCH (09:57)
[2021-06-10] MEDS: HUMALOG SQ PRN (12:10)
[2021-06-11 05:08] LABS: Absolute Neutrophil Ct (ANC) 2.91 (1.4-6.9); Basophil (Absolute #) 0.01 (0-0.4); Eosinophil % 3.5 % (0.00-5.0); Eosinophil (Absolute #) 0.19 (0-0.5); Hematocrit 37.2 % (42-50); Hemoglobin 12.1 gm/dl (12.5-18.0); Lymphocyte (Absolute #) 1.73 (1.0-4.6); Lymphocytes % 31.7 % (24.0-44.0); Mean Cell Volume 98.2 fl (78-100); Mean Corpuscular Hemoglobin 31.9 pg (26-32); Mean Corpuscular Hgb Concent. 32.5 g/dl (32-36); Mean Platelet Volume 8.8 fl (7.5-11.0); Monocyte (Absolute #) 0.62 (0.0-1.3); Monocytes % 11.4 % (0.0-12.0); Neutrophil % 53.2 % (36.0-66.0); Platelet Count 252 K/mm3 (150-450); Red Blood Count 3.79 M/mm3 (4.1-5.6); Red Cell Distribution Width 12.8 % (11.5-14.0); White Blood Count 5.5 K/mm3 (4.0-10.5)
[2021-06-11] MEDS: ECOTRIN 81 MG PO SCH (09:51)
[2021-06-11] MEDS: Effexor XR 75 MG PO SCH (09:51)
[2021-06-11] MEDS: Lantus Insulin SQ SCH (09:52)
[2021-06-11] MEDS: LOTRIMIN CREAM 30 GM TP SCH ×2 (09:52→21:34)
[2021-06-11] MEDS: JARDIANCE PO SCH (09:52)
[2021-06-11] MEDS: PATIENT OWN MEDICATION PO SCH (09:53)
[2021-06-11] MEDS: Tricor 145 MG PO SCH (09:54)
[2021-06-11] MEDS: Pletal 100 MG PO SCH (09:54)
[2021-06-11] MEDS: Protonix 40MG Tablet PO SCH (09:54)
[2021-06-11] MEDS: Zestril 20 MG PO SCH (09:55)
[2021-06-11] MEDS: ZYLOPRIM 100 MG PO SCH (09:55)
[2021-06-11] MEDS: ZOCOR 20MG PO SCH (09:55)
[2021-06-11] MEDS: Sodium Chloride 0.9% 1000 ML 1,000 ML IV SCH (17:10)
[2021-06-11] MEDS: HUMALOG SQ PRN (17:11)
[2021-06-11] MEDS ORDERED: Lantus Insulin SQ SCH (22:00)
--- NOTE | 2021-06-11 23:54 | PCM.HP ---
History of Present Illness - Chief Complaint Chief Complaint: falls Date: 06/09/21 History of Present Illness: is a 75 year old male patient of Dr Sara Kramer who presented to ER after dizziness and falls,abrasion to tj of head and bruised right shoulder.. He has remote Hx CVA,chronic back pain ,peripheral nueropathy but has refused to use a walker. PMHx includes IDDM2 ,S/P amputation left great toe,HTN,HLD,CAD/MT,PVD,Arthritis,Hx basal cell skin cancer,depression/anxiety,Hx Hepatitis A 1985. Patient is admitted to [facility] for observation and inpatient MRI of rain and Podiatry consult re left foot ulcer. - Review of Systems Constitutional: Lethargy, Weakness (generalized) Eyes: No Symptoms Ears, Nose, & Throat: No Symptoms Respiratory: No Symptoms Cardiac: No Symptoms Abdominal/Gastrointestinal: No Symptoms Genitourinary Symptoms: No Symptoms Musculoskeletal: Arthralgias (chronic), Back Pain (chronic) Skin: Other (minoe abrasion and bruising top of head and right shoulder) Neurological: Dizziness, Lethargy Psychological: Anxiety, Depression (mood stable) Medications & Allergies Home Medications: Home Medication List Allopurinol 100 mg [Zyloprim 100 mg] 100 mg PO DAILY 07/10/13 [History Confirmed 06/08/21] Aspirin EC 325 mg [Ecotrin 325 MG] 81 mg PO DAILY 07/10/13 [History Confirmed 06/08/21] Bisoprolol Fumarate 10 mg PO DAILY 06/08/21 [History Confirmed 06/08/21] Cilostazol 100 mg [Pletal 100 MG] 100 mg PO DAILY 06/08/21 [History Confirmed 06/08/21] Fenofibrate 67 mg PO DAILY 06/08/21 [History Confirmed 06/08/21] Lisinopril 20 mg [Zestril 20 MG] 20 mg PO DAILY 06/08/21 [History Confirmed 06/08/21] Pantoprazole Sodium 40 mg PO DAILY 06/08/21 [History Confirmed 06/08/21] Rosuvastatin Calcium [Ezallor Sprinkle] 20 mg PO DAILY 06/08/21 [History Confirmed 06/08/21] Venlafaxine HCl [Venlafaxine HCl ER] 150 mg PO DAILY 06/08/21 [History Confirmed 06/08/21] Clotrimazole Cream 30 gm [Lotrimin Cream 30 gm] 1 applic TP BID #30 units 06/13/21 [Rx] Insulin Degludec [Tresiba Flextouch U-100] 30 unit SQ HS #0 06/13/21 [Rx Confirmed 06/08/21] Allergies/Adverse Reactions: Allergies Allergy/AdvReac Type Severity Reaction Status Date / Time brompheniramine maleate Allergy Intermediate Verified 07/10/13 12:07 [From Dimetapp (brompheniramine-PPA)] ciprofloxacin [From Cipro] Allergy Intermediate Verified 07/10/13 12:07 ciprofloxacin HCl Allergy Intermediate Verified 07/10/13 12:07 [From Cipro] phenylpropanolamine HCl Allergy Intermediate Verified 07/10/13 12:07 [From Dimetapp (brompheniramine-PPA)] - Past Medical History Past Medical History: Yes Neurological History: Peripheral Neuropathy, Stroke ENT History: Cataracts, Glaucoma, Other Cardiac History: Coronary Artery Disease, High Cholesterol, Hypertension, Myocardial Infarction (MT), Peripheral Vascular Disease Respiratory History: No Pertinent History Endocrine Medical History: Diabetes Type II, Hypoglycemia Musculoskelatal History: Arthritis GI Medical History: Hepatitis, Irritable Bowel History: No Pertinent History Pyscho-Social History: Anxiety, Depression Male Reproductive Disorders: No Pertinent History Comment: Hepatitis A in 1985 - Past Surgical History Past Surgical History: Yes Neuro Surgical History: No Pertinent History Cardiac History: CABG, Cardiac Catheterization Respiratory Surgery: No Pertinent History GI Surgical History: Cholecystectomy Genitourinary Surgical Hx: No Pertinent History Musculskeletal Surgical Hx: No Pertinent History Male Surgical History: Vasectomy Other Surgical History: 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 - Social History Smoking Status: Former smoker Exposure to second hand smoke: No Alcohol: None Drug Use: none - Physical Exam Vital Signs: Vital Signs - 24 hr Temp Pulse Resp BP Pulse Ox 06/11/21 21:00 98.2 F 83 22 136/63 92 L 06/11/21 19:13 92 L 06/11/21 16:41 98.9 F 71 16 118/56 92 L 06/11/21 12:18 98.6 F 74 18 141/72 91 L 06/11/21 09:58 86 137/65 06/11/21 07:59 99.0 F 88 18 108/54 91 L 06/11/21 07:32 92 L 06/11/21 04:00 98.0 F 95 H 24 169/76 97 06/10/21 23:43 98.0 F 75 20 131/83 98 General Appearance: no apparent distress (lying down ,does not sit up to talk), lethargy Neurologic Exam: alert, oriented x 3, normal mood/affect (normal speech and mentation) Eye Exam: eyes nml inspection Ears, Nose, Throat Exam: normal ENT inspection Neck Exam: normal inspection Respiratory Exam: normal breath sounds Cardiovascular Exam: regular rate/rhythm Gastrointestinal/Abdomen Exam: soft, normal bowel sounds (nontender) Rectal Exam: not done Back Exam: normal inspection Extremity Exam: amputations (left great toe), other (bruise right shoulder) Skin Exam: normal color, warm, dry, abrasion (head), other (ulcer ,dry left foot) Results - Labs Lab/Micro Results: Lab Results-Last 24 Hours 06/11/21 06/11/21 06/11/21 Range/Units 04:01 04:25 04:25 WBC 5.5 (4.0-10.5) K/mm3 RBC 3.79 L (4.1-5.6) M/mm3 Hgb 12.1 L (12.5-18.0) gm/dl Hct 37.2 L (42-50) % MCV 98.2 (78-100) fl MCH 31.9 (26-32) pg MCHC 32.5 (32-36) g/dl RDW 12.8 (11.5-14.0) % Plt Count 252 (150-450) K/mm3 MPV 8.8 (7.5-11.0) fl Gran % 53.2 (36.0-66.0) % Eos # (Auto) 0.19 (0-0.5) Absolute Lymphs (auto) 1.73 (1.0-4.6) Absolute Monos (auto) 0.62 (0.0-1.3) Lymphocytes % 31.7 (24.0-44.0) % Monocytes % 11.4 (0.0-12.0) % Eosinophils % 3.5 (0.00-5.0) % Basophils % 0.2 (0.0-0.4) % Absolute Granulocytes 2.91 (1.4-6.9) Basophils # 0.01 (0-0.4) Glucose 63 L (74-106) mg/dL POC Glucometer 47 L* (50 to 500) mg/dL 06/11/21 06/11/21 06/11/21 Range/Units 05:42 07:43 11:35 WBC (4.0-10.5) K/mm3 RBC (4.1-5.6) M/mm3 Hgb (12.5-18.0) gm/dl Hct (42-50) % MCV (78-100) fl MCH (26-32) pg MCHC (32-36) g/dl RDW (11.5-14.0) % Plt Count (150-450) K/mm3 MPV (7.5-11.0) fl Gran % (36.0-66.0) % Eos # (Auto) (0-0.5) Absolute Lymphs (auto) (1.0-4.6) Absolute Monos (auto) (0.0-1.3) Lymphocytes % (24.0-44.0) % Monocytes % (0.0-12.0) % Eosinophils % (0.00-5.0) % Basophils % (0.0-0.4) % Absolute Granulocytes (1.4-6.9) Basophils # (0-0.4) Glucose (74-106) mg/dL POC Glucometer 96 124 H 131 H (50 to 500) mg/dL 06/11/21 06/11/21 Range/Units 16:15 21:48 WBC (4.0-10.5) K/mm3 RBC (4.1-5.6) M/mm3 Hgb (12.5-18.0) gm/dl Hct (42-50) % MCV (78-100) fl MCH (26-32) pg MCHC (32-36) g/dl RDW (11.5-14.0) % Plt Count (150-450) K/mm3 MPV (7.5-11.0) fl Gran % (36.0-66.0) % Eos # (Auto) (0-0.5) Absolute Lymphs (auto) (1.0-4.6) Absolute Monos (auto) (0.0-1.3) Lymphocytes % (24.0-44.0) % Monocytes % (0.0-12.0) % Eosinophils % (0.00-5.0) % Basophils % (0.0-0.4) % Absolute Granulocytes (1.4-6.9) Basophils # (0-0.4) Glucose (74-106) mg/dL POC Glucometer 164 H 268 H (50 to 500) mg/dL Microbiology 06/08/21 14:51 Urine Culture - Final Catherized NO GROWTH 06/08/21 13:35 Blood Culture - Preliminary Blood NO GROWTH TO DATE 06/08/21 13:20 Blood Culture - Preliminary Blood NO GROWTH TO DATE Accuchecks Date 06/11/21 Date 06/11/21 Date 06/11/21 Time 16:39 Time 12:16 Time 08:02 Assessment/Plan (1) Falls frequently Status: Acute Assessment & Plan: PT to evaluate,Hx CVA Code(s): R29.6 - REPEATED FALLS (2) Diabetes mellitus type 2, insulin dependent Status: Chronic Assessment & Plan: was on very high dose insulin and this was reduced by 1/2 on admission,monitor Code(s): E11.9 - TYPE 2 DIABETES MELLITUS WITHOUT COMPLICATIONS; Z79.4 - INTERMEDIATE (CURRENT) USE OF INSULIN (3) 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 Assessment & Plan: Dr Saunders currently cares for patient and will eval in hospital Code(s): E11.621 - TYPE 2 DIABETES MELLITUS WITH FOOT ULCER; L97.529 - NON- PRESSURE CHRONIC ULCER OTH PRT LEFT FOOT W UNSP SEVERITY (4) Dizziness Status: Acute Assessment & Plan: MRI brain-old lacunar infarcts, suspect in part due to hypoycemia Code(s): R42 - DIZZINESS AND GIDDINESS (5) HTN (hypertension) Status: Chronic Assessment & Plan: monitor Code(s): I10 - ESSENTIAL (PRIMARY) HYPERTENSION (6) CAD (coronary artery disease) Status: Chronic Assessment & Plan: Hx MT,no chest pain or JIMENEZ Code(s): I25.10 - ATHSCL HEART DISEASE OF [place] CORONARY ARTERY W/O ANG PCTRS
[2021-06-12] MEDS: Sodium Chloride 0.9% 1000 ML 1,000 ML IV SCH (03:38)
[2021-06-12 05:48] LABS: ALBUMIN 3.5 g/dL (3.5-5.0); ALKALINE PHOSPHATASE 51 U/L (38-126); ANION GAP 13.9 MEQ/L (5-15); BLOOD UREA NITROGEN 17 mg/dL (9-20); CHLORIDE 107 mmol/L (98-107); Calcium 8.9 mg/dL (8.4-10.2); Carbon Dioxide 23 mmol/L (22-30); Creatinine 1 0.97 mg/dL (0.66-1.25); EST GLOMERULAR FILTRATION RATE > 60.0 ML/MIN; Glucose 52 mg/dL (74-106); Potassium 4.1 mmol/L (3.5-5.1); SGOT/AST 22 U/L (17-59); SGPT/ALT 12 U/L (0-50); SODIUM 140 mmol/L (137-145); Total Protein 6.6 g/dL (6.3-8.2)
[2021-06-12] MEDS ORDERED: D50W 50 ml Abboject IV PRN (06:27)
[2021-06-12] MEDS ORDERED: Glutose 15 GM ORAL GEL PO PRN (06:27)
[2021-06-12] MEDS ORDERED: GlucaGen 1 MG IM PRN (06:27)
--- NOTE | 2021-06-12 08:58 | PCM.NOTE ---
Date and Time: 06/12/21 0856 Subjective Assessment: patient has an ulcer on his foot on the right and left foot with a toe amputation, he is ambulating with a walker. blood sugar this morning was low again, down in the 20's, treated with po intake. he is nervous about his blood sugars at home Objective Exam General Appearance: no apparent distress, obese Neurologic Exam: alert, oriented x 3 Respiratory Exam: normal breath sounds, lungs clear, No respiratory distress Cardiovascular Exam: regular rate/rhythm, normal heart sounds Gastrointestinal/Abdomen Exam: soft, No tenderness, No mass OBJECTIVE DATA Vital Signs: Vital Signs - 24 hr Temp Pulse Resp BP Pulse Ox 06/12/21 04:52 98.4 F 67 22 144/62 96 06/12/21 01:00 98.0 F 74 20 159/68 96 06/11/21 21:00 98.2 F 83 22 136/63 92 L 06/11/21 19:13 92 L 06/11/21 16:41 98.9 F 71 16 118/56 92 L 06/11/21 12:18 98.6 F 74 18 141/72 91 L 06/11/21 09:58 86 137/65 Pain Assessment - Last Documented Pain Intensity 0 Intake and Output: Intake & Output 06/09/21 06/10/21 06/11/21 06/12/21 11:59 11:59 11:59 11:59 Intake Total 480 4408 1750 2523 Output Total 0 1600 2450 Balance 480 4408 150 73 Weight 106.5 kg 106.5 kg Lab Results: Lab Results-Last 24 Hours 06/11/21 06/11/21 06/11/21 Range/Units 11:35 16:15 21:48 Sodium (137-145) mmol/L Potassium (3.5-5.1) mmol/L Chloride (98-107) mmol/L Carbon Dioxide (22-30) mmol/L Anion Gap (5-15) MEQ/L BUN (9-20) mg/dL Creatinine (0.66-1.25) mg/dL Estimated GFR ML/MIN Glucose (74-106) mg/dL POC Glucometer 131 H 164 H 268 H (74 to 106) mg/dL Calcium (8.4-10.2) mg/dL Total Bilirubin (0.2-1.3) mg/dL AST (17-59) U/L ALT (0-50) U/L Alkaline Phosphatase (38-126) U/L Serum Total Protein (6.3-8.2) g/dL Albumin (3.5-5.0) g/dL 06/12/21 06/12/21 06/12/21 Range/Units 04:30 05:51 05:55 Sodium 140 (137-145) mmol/L Potassium 4.1 (3.5-5.1) mmol/L Chloride 107 (98-107) mmol/L Carbon Dioxide 23 (22-30) mmol/L Anion Gap 13.9 (5-15) MEQ/L BUN 17 (9-20) mg/dL Creatinine 0.97 (0.66-1.25) mg/dL Estimated GFR > 60.0 ML/MIN Glucose 52 L (74-106) mg/dL POC Glucometer 27 L* 37 L* (74 to 106) mg/dL Calcium 8.9 (8.4-10.2) mg/dL Total Bilirubin 0.50 (0.2-1.3) mg/dL AST 22 (17-59) U/L ALT 12 (0-50) U/L Alkaline Phosphatase 51 (38-126) U/L Serum Total Protein 6.6 (6.3-8.2) g/dL Albumin 3.5 (3.5-5.0) g/dL 06/12/21 06/12/21 06/12/21 Range/Units 06:10 06:22 06:42 Sodium (137-145) mmol/L Potassium (3.5-5.1) mmol/L Chloride (98-107) mmol/L Carbon Dioxide (22-30) mmol/L Anion Gap (5-15) MEQ/L BUN (9-20) mg/dL Creatinine (0.66-1.25) mg/dL Estimated GFR ML/MIN Glucose 45 L* (74-106) mg/dL POC Glucometer 42 L* 73 L (74 to 106) mg/dL Calcium (8.4-10.2) mg/dL Total Bilirubin (0.2-1.3) mg/dL AST (17-59) U/L ALT (0-50) U/L Alkaline Phosphatase (38-126) U/L Serum Total Protein (6.3-8.2) g/dL Albumin (3.5-5.0) g/dL 06/12/21 Range/Units 07:46 Sodium (137-145) mmol/L Potassium (3.5-5.1) mmol/L Chloride (98-107) mmol/L Carbon Dioxide (22-30) mmol/L Anion Gap (5-15) MEQ/L BUN (9-20) mg/dL Creatinine (0.66-1.25) mg/dL Estimated GFR ML/MIN Glucose (74-106) mg/dL POC Glucometer 141 H (74 to 106) mg/dL Calcium (8.4-10.2) mg/dL Total Bilirubin (0.2-1.3) mg/dL AST (17-59) U/L ALT (0-50) U/L Alkaline Phosphatase (38-126) U/L Serum Total Protein (6.3-8.2) g/dL Albumin (3.5-5.0) g/dL Multi-Disciplinary Progress Notes: Multi-Disciplinary Progress Notes 06/12/21 00:36 Respiratory Note by Albin Mercedes PLACED PT ON CPAP W/ 2LPM INLINE, ADDED HUMIDITY, PLUGGED CPAP UNIT INTO RED OUTLET. 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 when blood sugars stabilized can return to home Code(s): E11.9 - TYPE 2 DIABETES MELLITUS WITHOUT COMPLICATIONS; Z79.4 - JAIL (CURRENT) USE OF INSULIN (2) Diabetic ulcer of left foot Current Visit: Yes Status: Acute Code(s): E11.621 - TYPE 2 DIABETES MELLITUS WITH FOOT ULCER; L97.529 - NON-PRESSURE CHRONIC ULCER OTH PRT LEFT FOOT W UNSP SEVERITY (3) Falls frequently Current Visit: Yes Status: Acute Code(s): R29.6 - REPEATED FALLS (4) Lacunar infarction Current Visit: Yes Status: Acute Code(s): I63.81 - OTHER CEREB INFRC DUE TO OCCLS OR STENOSIS OF SMALL ARTERY
[2021-06-12] MEDS: ECOTRIN 81 MG PO SCH (09:24)
[2021-06-12] MEDS: Protonix 40MG Tablet PO SCH (09:24)
[2021-06-12] MEDS: Tricor 145 MG PO SCH (09:24)
[2021-06-12] MEDS: ZYLOPRIM 100 MG PO SCH (09:24)
[2021-06-12] MEDS: ZOCOR 20MG PO SCH (09:25)
[2021-06-12] MEDS: Effexor XR 75 MG PO SCH (09:25)
[2021-06-12] MEDS: Zestril 20 MG PO SCH (09:25)
[2021-06-12] MEDS: PATIENT OWN MEDICATION PO SCH (09:26)
[2021-06-12] MEDS: Lantus Insulin SQ SCH (09:26)
[2021-06-12] MEDS: JARDIANCE PO SCH (09:26)
[2021-06-12] MEDS: Pletal 100 MG PO SCH (09:26)
[2021-06-12] MEDS: LOTRIMIN CREAM 30 GM TP SCH ×2 (09:27→21:16)
[2021-06-12] MEDS ORDERED: Lantus Insulin SQ SCH (22:00)
[2021-06-13 00:53] VITALS: O2SAT 95
[2021-06-13 05:40] LABS: Absolute Neutrophil Ct (ANC) 2.45 (1.4-6.9); Basophil (Absolute #) 0.01 (0-0.4); Eosinophil (Absolute #) 0.19 (0-0.5); Hematocrit 39.8 % (42-50); Lymphocyte (Absolute #) 2.97 (1.0-4.6); Lymphocytes % 46.8 % (24.0-44.0); Mean Cell Volume 98.3 fl (78-100); Mean Corpuscular Hemoglobin 32.1 pg (26-32); Mean Corpuscular Hgb Concent. 32.7 g/dl (32-36); Mean Platelet Volume 8.8 fl (7.5-11.0); Monocyte (Absolute #) 0.72 (0.0-1.3); Monocytes % 11.4 % (0.0-12.0); Neutrophil % 38.6 % (36.0-66.0); Platelet Count 257 K/mm3 (150-450); Red Blood Count 4.05 M/mm3 (4.1-5.6); White Blood Count 6.3 K/mm3 (4.0-10.5)
[2021-06-13 05:55] LABS: ANION GAP 10.6 MEQ/L (5-15); BLOOD UREA NITROGEN 24 mg/dL (9-20); CHLORIDE 104 mmol/L (98-107); Carbon Dioxide 28 mmol/L (22-30); Creatinine 1 1.08 mg/dL (0.66-1.25); EST GLOMERULAR FILTRATION RATE > 60.0 ML/MIN; Glucose 91 mg/dL (74-106); Potassium 3.9 mmol/L (3.5-5.1); SODIUM 139 mmol/L (137-145)
[2021-06-13 07:28] VITALS: BP 174/71; PULSE 72
--- NOTE | 2021-06-13 07:48 | PCM.DS ---
Discharge Summary Date of Admission: 06/11/21 08:00 Admitting Physician: AIDEN LAFLEUR DO Consults: Consults on Case 06/08/21 19:57 Consult Podiatry ROUTINE 06/12/21 06:27 Notify Physician ROUTINE Primary Care Provider: PAM PUENTES Allergies Allergies brompheniramine maleate [From Dimetapp (brompheniramine-PPA)] Allergy (Intermediate, Verified 07/10/13 12:07) ciprofloxacin [From Cipro] Allergy (Intermediate, Verified 07/10/13 12:07) ciprofloxacin HCl [From Cipro] Allergy (Intermediate, Verified 07/10/13 12:07) phenylpropanolamine HCl [From Dimetapp (brompheniramine-PPA)] Allergy (Intermediate, Verified 07/10/13 12:07) Hospital Summary - Hospital Course Hospital Course: patient was admitted with frequent falls, had hx diabetic foot ulcer and previous toe amputation. he is currently ambulating well with a cane and walker which he states he has at home. had some low blood sugars, adjustments were made and he is currently doing well. will return to home and f/u with Dr Lafleur - Vitals & Intake/Output Vital Signs: Vital Signs Temperature 97.8 F 06/13/21 07:27 Pulse Rate 72 06/13/21 07:27 Respiratory Rate 18 06/13/21 07:27 Blood Pressure 174/71 06/13/21 07:27 O2 Sat by Pulse Oximetry 95 06/13/21 07:27 Intake & Output: Intake & Output 06/10/21 06/11/21 06/12/21 06/13/21 11:59 11:59 11:59 11:59 Intake Total 4408 1750 2973 910 Output Total 1600 3125 2880 Balance 4408 150 152 -1970 Weight 106.5 kg - Lab Result Diagrams: 06/13/21 05:17 06/13/21 05:17 Lab Results-Last 24 Hrs: Lab Results-Last 24 Hours 06/12/21 06/12/21 06/12/21 Range/Units 07:46 11:37 16:28 WBC (4.0-10.5) K/mm3 RBC (4.1-5.6) M/mm3 Hgb (12.5-18.0) gm/dl Hct (42-50) % MCV (78-100) fl MCH (26-32) pg MCHC (32-36) g/dl RDW (11.5-14.0) % Plt Count (150-450) K/mm3 MPV (7.5-11.0) fl Gran % (36.0-66.0) % Eos # (Auto) (0-0.5) Absolute Lymphs (auto) (1.0-4.6) Absolute Monos (auto) (0.0-1.3) Lymphocytes % (24.0-44.0) % Monocytes % (0.0-12.0) % Eosinophils % (0.00-5.0) % Basophils % (0.0-0.4) % Absolute Granulocytes (1.4-6.9) Basophils # (0-0.4) Sodium (137-145) mmol/L Potassium (3.5-5.1) mmol/L Chloride (98-107) mmol/L Carbon Dioxide (22-30) mmol/L Anion Gap (5-15) MEQ/L BUN (9-20) mg/dL Creatinine (0.66-1.25) mg/dL Estimated GFR ML/MIN Glucose (74-106) mg/dL POC Glucometer 141 H 146 H 226 H (74 to 106) mg/dL Calcium (8.4-10.2) mg/dL 06/12/21 06/13/21 06/13/21 Range/Units 21:13 05:17 05:17 WBC 6.3 (4.0-10.5) K/mm3 RBC 4.05 L (4.1-5.6) M/mm3 Hgb 13.0 (12.5-18.0) gm/dl Hct 39.8 L (42-50) % MCV 98.3 (78-100) fl MCH 32.1 H (26-32) pg MCHC 32.7 (32-36) g/dl RDW 13.0 (11.5-14.0) % Plt Count 257 (150-450) K/mm3 MPV 8.8 (7.5-11.0) fl Gran % 38.6 (36.0-66.0) % Eos # (Auto) 0.19 (0-0.5) Absolute Lymphs (auto) 2.97 (1.0-4.6) Absolute Monos (auto) 0.72 (0.0-1.3) Lymphocytes % 46.8 H (24.0-44.0) % Monocytes % 11.4 (0.0-12.0) % Eosinophils % 3.0 (0.00-5.0) % Basophils % 0.2 (0.0-0.4) % Absolute Granulocytes 2.45 (1.4-6.9) Basophils # 0.01 (0-0.4) Sodium 139 (137-145) mmol/L Potassium 3.9 (3.5-5.1) mmol/L Chloride 104 (98-107) mmol/L Carbon Dioxide 28 (22-30) mmol/L Anion Gap 10.6 (5-15) MEQ/L BUN 24 H (9-20) mg/dL Creatinine 1.08 (0.66-1.25) mg/dL Estimated GFR > 60.0 ML/MIN Glucose 91 (74-106) mg/dL POC Glucometer 242 H (74 to 106) mg/dL Calcium 9.0 (8.4-10.2) mg/dL 06/13/21 06/13/21 Range/Units 05:17 06:48 WBC (4.0-10.5) K/mm3 RBC (4.1-5.6) M/mm3 Hgb (12.5-18.0) gm/dl Hct (42-50) % MCV (78-100) fl MCH (26-32) pg MCHC (32-36) g/dl RDW (11.5-14.0) % Plt Count (150-450) K/mm3 MPV (7.5-11.0) fl Gran % (36.0-66.0) % Eos # (Auto) (0-0.5) Absolute Lymphs (auto) (1.0-4.6) Absolute Monos (auto) (0.0-1.3) Lymphocytes % (24.0-44.0) % Monocytes % (0.0-12.0) % Eosinophils % (0.00-5.0) % Basophils % (0.0-0.4) % Absolute Granulocytes (1.4-6.9) Basophils # (0-0.4) Sodium (137-145) mmol/L Potassium (3.5-5.1) mmol/L Chloride (98-107) mmol/L Carbon Dioxide (22-30) mmol/L Anion Gap (5-15) MEQ/L BUN (9-20) mg/dL Creatinine (0.66-1.25) mg/dL Estimated GFR ML/MIN Glucose (74-106) mg/dL POC Glucometer 85 77 (74 to 106) mg/dL Calcium (8.4-10.2) mg/dL Micro Results-Entire Visit: Microbiology 06/08/21 13:35 Blood Culture Gram Stain - Final Blood Not Reportable Blood Culture - Preliminary No growth. 06/08/21 13:20 Blood Culture Gram Stain - Final Blood Not Reportable Blood Culture - Final NO GROWTH 06/08/21 14:51 Urine Culture - Final Catherized NO GROWTH Accuchecks Date 06/13/21 Date 06/12/21 Date 06/12/21 Date 06/12/21 Time 06:48 Time 16:32 Time 11:45 - Procedures and Test Procedures and Tests throughout Hospitalization: Therapy Orders & Screens 06/08/21 23:32 BiPap/CPAP ROUTINE Comment: Diagnosis: falls 06/09/21 08:41 PT Eval & Treat (MD Order) ONCE Reason for Eval:: frequent falls Diagnosis: falls 06/09/21 19:30 Oxygen NASAL CANNULA 2 lpm Comment: Diagnosis: falls Discharge Exam General Appearance: no apparent distress, obese Neurologic Exam: alert, oriented x 3 Respiratory Exam: normal breath sounds, lungs clear, No respiratory distress Cardiovascular Exam: regular rate/rhythm, normal heart sounds Gastrointestinal/Abdomen Exam: soft, No tenderness, No mass Skin Exam: normal color, warm, dry Final Diagnosis/Problem List - Final Discharge Diagnosis/Problem (1) Diabetes mellitus type 2, insulin dependent Current Visit: Yes Status: Acute Code(s): E11.9 - TYPE 2 DIABETES MELLITUS WITHOUT COMPLICATIONS; Z79.4 - HALF-WAY (CURRENT) USE OF INSULIN (2) Diabetic ulcer of left foot Current Visit: Yes Status: Acute Code(s): E11.621 - TYPE 2 DIABETES MELLITUS WITH FOOT ULCER; L97.529 - NON-PRESSURE CHRONIC ULCER OTH PRT LEFT FOOT W UNSP SEVERITY (3) Falls frequently Current Visit: Yes Status: Acute Code(s): R29.6 - REPEATED FALLS (4) Lacunar infarction Current Visit: Yes Status: Acute Code(s): I63.81 - OTHER CEREB INFRC DUE TO OCCLS OR STENOSIS OF SMALL ARTERY - Discharge Disposition: Home, Self-Care Condition: Fair Prescriptions: New Clotrimazole Cream 30 gm [Lotrimin Cream 30 gm] 1 applic TP BID #30 units Continue Allopurinol 100 mg [Zyloprim 100 mg] 100 mg PO DAILY Aspirin EC 325 mg [Ecotrin 325 MG] 81 mg PO DAILY Pantoprazole Sodium 40 mg PO DAILY Cilostazol 100 mg [Pletal 100 MG] 100 mg PO DAILY Rosuvastatin Calcium [Ezallor Sprinkle] 20 mg PO DAILY Venlafaxine HCl [Venlafaxine HCl ER] 150 mg PO DAILY Lisinopril 20 mg [Zestril 20 MG] 20 mg PO DAILY Fenofibrate 67 mg PO DAILY Bisoprolol Fumarate 10 mg PO DAILY Changed Insulin Degludec [Tresiba Flextouch U-100] 30 unit SQ HS #0 Additional Instructions: ORDER FOR ROLLATOR SENT TO [facility]. THEIR PHONE NUMBER IS [phone]. Follow up with: PAM PUENTES MD [Primary Care Provider] -
[2021-06-13] MEDS: Pletal 100 MG PO SCH (09:59)
[2021-06-13] MEDS: Protonix 40MG Tablet PO SCH (09:59)
[2021-06-13] MEDS: ZYLOPRIM 100 MG PO SCH (09:59)
[2021-06-13] MEDS: Effexor XR 75 MG PO SCH (09:59)
[2021-06-13] MEDS: ECOTRIN 81 MG PO SCH (09:59)
[2021-06-13] MEDS: Zestril 20 MG PO SCH (09:59)
[2021-06-13] MEDS: Tricor 145 MG PO SCH (09:59)
[2021-06-13] MEDS: ZOCOR 20MG PO SCH (09:59)
[2021-06-13] MEDS: Lantus Insulin SQ SCH (10:00)
[2021-06-13] MEDS: JARDIANCE PO SCH (10:00)
[2021-06-13] MEDS: PATIENT OWN MEDICATION PO SCH (10:00)
[2021-06-13] MEDS: LOTRIMIN CREAM 30 GM TP SCH (10:00)
== END 2021-06-13 10:55 | disposition home or self-care (01) | DRG 637 ==
LOC: ED 12:28 → MED SURG 19:55 → OBSVTOIN 06-11 08:00
PROVIDERS: ADMIT Family Medicine; ATTEND Family Medicine
DX: E11.621 Type 2 diabetes mellitus with foot ulcer (principal); I63.81 Other cerebral infarction due to occlusion or stenosis of small artery; L97.529 Non-pressure chronic ulcer of other part of left foot with unspecified severity; R29.6 Repeated falls; I10 Essential (primary) hypertension; E78.5 Hyperlipidemia, unspecified; I25.10 Atherosclerotic heart disease of native coronary artery without angina pectoris; S00.91XA Abrasion of unspecified part of head, initial encounter; S40.211A Abrasion of right shoulder, initial encounter; R42 Dizziness and giddiness; Z79.4 Long term (current) use of insulin; Z79.899 Other long term (current) drug therapy; Z20.828 Contact with and (suspected) exposure to other viral communicable diseases; Z85.828 Personal history of other malignant neoplasm of skin
CPT/HCPCS: 0241U; 36000; 36415; 70450; 70551; 71045; 74176; 80048; 80053; 81015; 82150; 82607; 82947; 83036; 83605; 83690; 83880; 84443; 84484; 85025; 85610; 87040; 87086; 93005; 93268; 94660; 94762; 99285; J1817; J2405; P9612; A9270-GY; G0378

== ENCOUNTER 2021-11-24 09:55 | Day surgery (SDC) | payer MEDICARE ==
[2021-11-24] MEDS ORDERED: CEFAZOLIN 2 GM-D5W BAG** 2 GM/50 ML ML IV ONE ×2 (12:05→12:09)
[2021-11-24] MEDS ORDERED: Lactated Ringers 1,000 ML IV ONE (12:05)
[2021-11-24] MEDS ORDERED: Lactated Ringers 1,000 ML IV SCH (12:30)
[2021-11-24] MEDS ORDERED: Xylocaine 1% Vial 30 ML PF IJ ONE (13:04)
--- NOTE | 2021-11-24 14:30 | XRAY ---
Indication: Left foot exostectomy cuboid styloid 5th metatarsal and 2nd metatarsal. Intraoperative fluoroscopy provided for 1 minute 51 seconds. 29 digital spot images submitted for interpretation demonstrates instrumentation cuboid, base 5th metatarsal, and distal 2nd metatarsal. Correlate with intraoperative findings/report.
--- NOTE | 2021-11-24 14:30 | XRAY ---
1 minute and 51 seconds fluoroscopy time in surgery for left foot surgery.
--- NOTE | 2021-11-24 14:30 | XRAY ---
1 minute and 51 seconds fluoroscopy time in surgery for left foot surgery.
[2021-11-24 14:59] VITALS: O2SAT 99
[2021-11-24 15:55] VITALS: BP 127/71; PULSE 67
[2021-11-24] MEDS ORDERED: Marcaine Mpf 0.5% Vial 30 Ml ONE (16:24)
--- NOTE | 2021-11-25 08:18 | OP ---
SURGERY DATE/TIME: 11/24/2021 1240 PREOPERATIVE DIAGNOSES: 1) Charcot osteoarthropathy left foot. 2) Diabetes mellitus type II. 3) Diabetic foot ulcer left foot. 4) Exostosis fifth metatarsal. 5) Metatarsal deformity. POSTOPERATIVE DIAGNOSES: 1) Charcot osteoarthropathy left foot. 2) Diabetes mellitus type II. 3) Diabetic foot ulcer left foot. 4) Exostosis fifth metatarsal. 5) Metatarsal deformity. PROCEDURES: 1) Bone debridement of cuboid left foot with planing. 2) Exostectomy fifth metatarsal. 3) Metatarsal osteotomy second metatarsal. 4) Complex wound closure left foot. SURGEON: Manuel Heck DPM. QUALITY ASSURANCE PRACTICE MANAGER: None. ANESTHESIA: Local. HEMOSTASIS: Pressure dressing. ESTIMATED BLOOD LOSS: Less than 10 cc. MATERIALS: 2-0 Vicryl, 2-0 Nylon, 3-0 Nylon and HEMIGARD x2. INJECTABLES: 30 cc of 1:1 mixture of 1% lidocaine plain and 0.5% bupivacaine plain injected in a V-block type fashion as well as metatarsal block-type fashion. INDICATION FOR SURGERY: Manjit is a very pleasant 75-year-old male who has had an ongoing history of Charcot osteoarthropathy for a significant amount of time. The patient had the Charcot for a number of years now and has had ulceration to the plantar aspect of the left foot secondary to the characteristic rocker bottom deformity. At this time the patient's wound is not progressing with conservative modalities consisting of offloading, shoe gear modification and wound care. Options were discussed with the patient. As the patient has had multiple implantations to this foot in the past, he is likely not a good candidate for reconstructive efforts to the left lower extremity. He is relatively stable and because of this the patient would potentially benefit from an attempt at planing the bones at the plantar aspect of the left foot underneath the cuboid and at the lateral aspect of the foot where his wounds were present. The patient wished to also have a significant prominence underneath the second metatarsal plane with a floating osteotomy and an attempt at wound closure was to be made. The patient understands all risks, complications and benefits of the procedure. No guarantees were made as to the outcome of the surgical intervention. Plenty of time was allowed for him and his daughter to ask questions which were answered to the patient's apparent satisfaction. It is with that we decided to proceed with surgical intervention. DESCRIPTION OF PROCEDURE AND FINDINGS: The patient is brought into the OR and placed on the OR table in the supine position. At this time the left lower extremity was prepped and draped in the typical sterile fashion and lowered onto the surgical field. A preoperative block of 30 cc of a 1:1 mixture of 1% lidocaine plain and 0.5% bupivacaine plain was injected in a V block-type fashion subcuboid of the left foot and lateral aspect of the fifth metatarsal. At this time an additional 10 cc block was introduced for a metatarsal block to the second metatarsal of the left foot. Following this, incision was made where a 3:1 ellipse where the lateral aspect of the ellipse was carried over to the styloid process of the fifth metatarsal was made. At this time the ulcer was removed from the surgical site this exposed the cuboid. Planing of the bone took place utilizing a combination of a Ellen rory rasp and 28 mm blade was performed until the planning surface was less prominent. This was checked on fluoroscopic guidance and deemed to be approximately 5 mm of bone that was removed from the site. The incision was carried further to the styloid process of the fifth metatarsal where the lateral aspect and the prominence of the bone was then shaved down utilizing a Ellen rory. Rongeurs were utilized to craterize the site of the bone here. At this time attention was directed under fluoroscopic guidance to the second metatarsal where an osteotomy was performed utilizing a sagittal saw this allowed for the metatarsal to float and then following this attention was redirected to the ulceration at the plantar aspect of the foot where copious amounts of sterile saline were utilized to flush the site and closure was maintained in a layered-type fashion with 2-0 Vicryl, 3-0 and 2-0 Nylon along with suture guards to protect the tension on the surgical site. Following this the foot was cleansed. Dressing consisting of Betadine, Adaptic, 4x4, Kerlix and MELISSA were applied to the left lower extremity. The patient was then returned to the preoperative evaluation area with vital signs stable and vascular status intact. The patient handled the anesthesia as well as the procedure without significant complication. Postoperative orders as indicated in the patient's discharge chart.
== END 2021-11-24 15:47 | disposition home or self-care (01) ==
LOC: SDC 09:55
PROVIDERS: ATTEND Podiatrist Foot & Ankle Surgery
DX: M14.672 Charcot's joint, left ankle and foot (principal); E11.621 Type 2 diabetes mellitus with foot ulcer; M20.42 Other hammer toe(s) (acquired), left foot; L84 Corns and callosities; M79.672 Pain in left foot
CPT/HCPCS: 73620; 76000; J0690; J2001

== ENCOUNTER 2022-01-26 09:16 | Inpatient (IN) | payer MEDICARE ==
[2022-01-26 10:42] LABS: Absolute Neutrophil Ct (ANC) 4.13 x10^3/uL (1.4-6.9); Basophil (Absolute #) 0.02 x10^3/uL (0-0.4); Eosinophil % 1.6 % (0.00-5.0); Eosinophil (Absolute #) 0.11 x10^3/uL (0-0.5); Hematocrit 35.8 % (42-50); Hemoglobin 11.1 g/dL (12.5-18.0); Mean Cell Volume 97.8 fL (78-100); Mean Corpuscular Hemoglobin 30.3 pg (26-32); Mean Platelet Volume 8.5 fL (7.5-11.0); Monocytes % 8.8 % (0.0-12.0); Neutrophil % 60.9 % (36.0-66.0); Platelet Count 287 x10^3/uL (150-450); Red Blood Count 3.66 x10^6/uL (4.1-5.6); Red Cell Distribution Width 13.8 % (11.5-14.0); White Blood Count 6.8 x10^3/uL (4.0-10.5)
[2022-01-26 10:44] LABS: ALBUMIN 4.2 g/dL (3.5-5.0); ANION GAP 9.3 MEQ/L (5-15); BILIRUBIN,TOTAL 0.3 mg/dL (0.2-1.3); Calcium 8.9 mg/dL (8.4-10.2); Creatinine 1 1.89 mg/dL (0.66-1.25); Potassium 4.9 mmol/L (3.5-5.1); Total Protein 8.2 g/dL (6.3-8.2)
[2022-01-26 11:07] LABS: INFLUENZA A NEGATIVE (NEGATIVE); INFLUENZA B NEGATIVE (NEGATIVE); RESPIRATORY SYNCTIAL VIRUS NEGATIVE (Negative); SARS-CoV-2 Xpert Express NEGATIVE (NEGATIVE)
[2022-01-26 11:44] LABS: INR 1.1 (0.8-3.0); PROTIME 11.6 SECONDS (9.4-12.5); PTT 26.5 SECONDS (25.1-36.5)
[2022-01-26] MEDS ORDERED: HEPARIN-NS 1,000 UNITS/500 ML IV ONE (12:00)
[2022-01-26] MEDS ORDERED: NORCO 5/325 MG PO PRN (12:30)
[2022-01-26] MEDS ORDERED: CLIDINIUM BR PO PRN (12:30)
[2022-01-26] MEDS ORDERED: CHLORDIAZEPOXIDE PO PRN (12:30)
[2022-01-26] MEDS ORDERED: Cyclobenzaprine 10 MG PO PRN (12:30)
[2022-01-26] MEDS ORDERED: Protonix 40MG Tablet PO PRN (12:30)
[2022-01-26] MEDS ORDERED: Singulair 10 MG PO PRN (12:30)
[2022-01-26] MEDS ORDERED: NON-FORMULARY ITEM (Insulin Aspart [Novolog] 100 UNIT/ML Vial) SCH (12:30)
[2022-01-26] MEDS ORDERED: MEDICATION INTERVENTION MC SCH ×2 (13:00)
--- NOTE | 2022-01-26 13:29 | XRAY ---
Indication: Ultrasound guidance for PICC line placement. Initial sonographic imaging of the right upper extremity was performed for localization of patent veins. A patent basilic vein identified above the elbow. Ultrasound guidance was then used for PICC line insertion. Full PICC line insertion is reported separately.
--- NOTE | 2022-01-26 13:31 | XRAY ---
Indication: Long-term IV access and therapy for left foot infection. Informed consent obtained. Patient was placed on the fluoroscopic table in a supine position. Initial sonographic imaging of the right upper extremity was performed for localization of patent veins. The right upper extremity was then prepped and draped in sterile fashion. Tourniquet applied. 1% lidocaine plain used for local anesthesia. Using ultrasound guidance and a micropuncture needle, a basilic vein above the elbow was successfully percutaneously cannulized. A floppy tip 0.018 guidewire inserted. Tourniquet released. Needle was exchanged for a 5 Stateless dilator peel-away sheath catheter. Ultimately a 5 Stateless double-lumen PICC line was inserted over a longer 0.018 guidewire with the tip positioned in the distal SVC using fluoroscopic guidance. Guidewire removed. Both ports flushed with heparinized saline. Catheter was secured. Postoperative instructions and orders given. Patient discharged in good condition. Impression: Technically successful right upper extremity PICC line placement using ultrasound and fluoroscopic guidance. No immediate complications. Approximately 2 cc blood loss. Approximately 0.4 minute of fluoroscopy used. Catheter length is 45 cm.
[2022-01-26] MEDS: PIPERACILLIN/TAZOBACTAM 3.375 GM in Sodium Chloride 100ML MINI-BAG PLUS 100 ML IV SCH ×2 (15:00→21:49)
[2022-01-26] MEDS: ZYLOPRIM 100 MG PO SCH (21:48)
[2022-01-26] MEDS: Effexor XR 75 MG PO SCH (21:48)
[2022-01-26] MEDS: NORVASC 5 MG PO SCH (21:49)
[2022-01-26] MEDS ORDERED: Effexor ER 37.5 MG PO SCH (22:00)
[2022-01-27] MEDS: PIPERACILLIN/TAZOBACTAM 3.375 GM in Sodium Chloride 100ML MINI-BAG PLUS 100 ML IV SCH ×3 (06:33→22:25)
--- NOTE | 2022-01-27 09:20 | PCM.HP ---
History of Present Illness - Chief Complaint Chief Complaint: soft tissue diabetic foot ulcer History of Present Illness: is a 76 year old male with a nonhealing wound on the left foot, he was admitted for IV antibiotic therapy. He has no complaints of pain currently, he reports a previous history of surgery to the left foot. He has an open, infected area on the plantar aspect of his left foot. - Review of Systems Constitutional: No Fever, No Chills Respiratory: No Cough, No Short Of Breath Cardiac: No Chest Pain, No Edema, No Syncope Abdominal/Gastrointestinal: No Abdominal Pain, No Nausea, No Vomiting, No Diarrhea Skin: Skin Lesions, No Rash Medications & Allergies Home Medications: Home Medication List Allopurinol 100 mg [Zyloprim 100 mg] 200 mg PO BID 07/10/13 [History Confirmed 01/26/22] Aspirin EC 325 mg [Ecotrin 325 MG] 81 mg PO DAILY 07/10/13 [History Confirmed 01/26/22] Bisoprolol Fumarate 5 mg PO DAILY 06/08/21 [History Confirmed 01/26/22] Fenofibrate 67 mg PO DAILY 06/08/21 [History Confirmed 01/26/22] Pantoprazole Sodium 40 mg PO UD PRN 06/08/21 [History Confirmed 01/26/22] Rosuvastatin Calcium [Ezallor Sprinkle] 20 mg PO DAILY 06/08/21 [History Confirmed 01/26/22] Venlafaxine HCl [Venlafaxine HCl ER] 150 mg PO BID 06/08/21 [History Confirmed 01/26/22] Amlodipine Besylate 5 mg [Norvasc 5 mg] 5 mg PO BID 11/17/21 [History Confirmed 01/26/22] Chlordiazepoxide/Clidinium Br [Librax Capsule] 1 cap PO DAILY PRN PRN 11/17/21 [History Confirmed 01/26/22] Cyclobenzaprine HCl 10 mg [Cyclobenzaprine 10 MG] 5 mg PO QID PRN PRN 11/17/21 [History Confirmed 01/26/22] Ezetimibe 10 mg [Zetia 10 MG] 10 mg PO DAILY 11/17/21 [History Confirmed 01/26/22] Insulin Aspart [Novolog] See Rx Instructions .ROUTE .COMPLEX 11/17/21 [History Confirmed 01/26/22] Insulin Degludec [Tresiba Flextouch U-100] 120 unit SQ DAILY 11/17/21 [History Confirmed 01/26/22] Montelukast Sodium 10 mg [Singulair 10 MG] 10 mg PO DAILY PRN PRN 11/17/21 [History Confirmed 01/26/22] B12/Levomefolate Calcium/B-6 [Folbic Rf Tablet] 1 tab PO DAILY 01/26/22 [History Confirmed 01/26/22] Hydrocodone/Acetaminophen [Hydrocodone-Acetamin 5-325 mg] 1 tab PO DAILY PRN PRN 01/26/22 [History Confirmed 01/26/22] Allergies/Adverse Reactions: Allergies Allergy/AdvReac Type Severity Reaction Status Date / Time brompheniramine maleate Allergy Intermediate Rapid Verified 11/24/21 11:15 [From Dimetapp Heart Beat (brompheniramine-PPA)] ciprofloxacin [From Cipro] Allergy Intermediate Verified 11/17/21 10:16 ciprofloxacin HCl Allergy Intermediate Headache Verified 11/24/21 11:15 [From Cipro] phenylpropanolamine HCl Allergy Intermediate Rapid Verified 11/24/21 11:16 [From Dimetapp Heart Beat (brompheniramine-PPA)] - Past Medical History Past Medical History: Yes Neurological History: Peripheral Neuropathy, Stroke ENT History: Cataracts, Glaucoma, Other Cardiac History: Coronary Artery Disease, High Cholesterol, Hypertension, Myocardial Infarction ([place]), Peripheral Vascular Disease Respiratory History: No Pertinent History Endocrine Medical History: Diabetes Type II, Hypoglycemia Musculoskelatal History: Arthritis GI Medical History: Hepatitis, Irritable Bowel History: No Pertinent History Pyscho-Social History: Anxiety, Depression Male Reproductive Disorders: No Pertinent History Comment: Hepatitis A in 1985 - Past Surgical History Past Surgical History: Yes Neuro Surgical History: No Pertinent History Cardiac History: CABG, Cardiac Catheterization Respiratory Surgery: No Pertinent History GI Surgical History: Cholecystectomy Genitourinary Surgical Hx: No Pertinent History Musculskeletal Surgical Hx: No Pertinent History Male Surgical History: Vasectomy Other Surgical History: 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 - Social History Smoking Status: Former smoker Exposure to second hand smoke: No Alcohol: None Drug Use: none - Physical Exam Vital Signs: Vital Signs - 24 hr Temp Pulse Resp BP Pulse Ox 01/27/22 07:26 98.0 F 59 L 16 92/53 97 01/27/22 04:00 98.5 F 65 18 113/58 96 01/26/22 23:40 97.4 F 60 18 120/56 97 01/26/22 19:55 97.3 F 63 18 124/59 96 01/26/22 16:00 97.9 F 67 16 120/55 99 01/26/22 11:00 97.5 F 68 16 96 General Appearance: no apparent distress Neurologic Exam: alert, oriented x 3 Respiratory Exam: normal breath sounds, lungs clear, No respiratory distress Cardiovascular Exam: regular rate/rhythm, normal heart sounds, normal peripheral pulses Gastrointestinal/Abdomen Exam: soft, normal bowel sounds, No tenderness, No mass Extremity Exam: other (open area left plantar foot, lateral aspect. foul odor and purulent drainage is present) Wound Assessment: Skin/Wound Assessment Wound/Incision Assessment Start: 01/26/22 12:40 Text: Status: Active Freq: Q6H Protocol: Document 01/27/22 08:00 AR (Rec: 01/27/22 08:44 AR [id number]) Wound/Incision Assessment Left Lateral Volar Foot Wound Assessment Shift Assessment Wound Type DECUBITUS ULCER Dressing Status Dry & Intact Comment dressing cdi Wound Photo Photo Taken Yes Date: 01/26/22 Time: 11:00 Results - Labs Lab/Micro Results: Lab Results-Last 24 Hours 01/26/22 01/26/22 01/26/22 Range/Units 10:20 10:20 10:20 WBC 6.8 (4.0-10.5) x10^3/uL RBC 3.66 L (4.1-5.6) x10^6/uL Hgb 11.1 L (12.5-18.0) g/dL Hct 35.8 L (42-50) % MCV 97.8 (78-100) fL MCH 30.3 (26-32) pg MCHC 31.0 L (32-36) g/dL RDW 13.8 (11.5-14.0) % Plt Count 287 (150-450) x10^3/uL MPV 8.5 (7.5-11.0) fL Gran % 60.9 (36.0-66.0) % Immature Gran % (Auto) 0.4 (0.00-0.4) % Nucleat RBC Rel Count 0.0 (0.00-0.1) % Eos # (Auto) 0.11 (0-0.5) x10^3/uL Immature Gran # (Auto) 0.03 (0.00-0.03) x10^3u/L Absolute Lymphs (auto) 1.90 (1.0-4.6) x10^3/uL Absolute Monos (auto) 0.60 (0.0-1.3) x10^3/uL Absolute Nucleated RBC 0.00 (0.00-0.01) x10^3u/L Lymphocytes % 28.0 (24.0-44.0) % Monocytes % 8.8 (0.0-12.0) % Eosinophils % 1.6 (0.00-5.0) % Basophils % 0.3 (0.0-0.4) % Absolute Granulocytes 4.13 (1.4-6.9) x10^3/uL Basophils # 0.02 (0-0.4) x10^3/uL ESR (0-15) mm/hr PT 11.6 (9.4-12.5) SECONDS INR 1.10 (0.8-3.0) APTT 26.5 (25.1-36.5) SECONDS Sodium (137-145) mmol/L Potassium (3.5-5.1) mmol/L Chloride (98-107) mmol/L Carbon Dioxide (22-30) mmol/L Anion Gap (5-15) MEQ/L BUN (9-20) mg/dL Creatinine (0.66-1.25) mg/dL Estimated GFR ML/MIN Glucose (74-106) mg/dL POC Glucometer (74 to 106) mg/dL Hemoglobin A1c (4.5-6.0) % Lactic Acid (0.4-2.0) Calcium (8.4-10.2) mg/dL Total Bilirubin (0.2-1.3) mg/dL AST (17-59) U/L ALT (0-50) U/L Alkaline Phosphatase (38-126) U/L Serum Total Protein (6.3-8.2) g/dL Albumin (3.5-5.0) g/dL Prealbumin (17.6-36.0) mg/dL Influenza Type A Ag NEGATIVE (NEGATIVE) Influenza Type B Ag NEGATIVE (NEGATIVE) RSV (PCR) NEGATIVE (Negative) SARS-CoV-2 (PCR) NEGATIVE (NEGATIVE) 01/26/22 01/26/22 01/26/22 Range/Units 10:20 10:20 10:20 WBC (4.0-10.5) x10^3/uL RBC (4.1-5.6) x10^6/uL Hgb (12.5-18.0) g/dL Hct (42-50) % MCV (78-100) fL MCH (26-32) pg MCHC (32-36) g/dL RDW (11.5-14.0) % Plt Count (150-450) x10^3/uL MPV (7.5-11.0) fL Gran % (36.0-66.0) % Immature Gran % (Auto) (0.00-0.4) % Nucleat RBC Rel Count (0.00-0.1) % Eos # (Auto) (0-0.5) x10^3/uL Immature Gran # (Auto) (0.00-0.03) x10^3u/L Absolute Lymphs (auto) (1.0-4.6) x10^3/uL Absolute Monos (auto) (0.0-1.3) x10^3/uL Absolute Nucleated RBC (0.00-0.01) x10^3u/L Lymphocytes % (24.0-44.0) % Monocytes % (0.0-12.0) % Eosinophils % (0.00-5.0) % Basophils % (0.0-0.4) % Absolute Granulocytes (1.4-6.9) x10^3/uL Basophils # (0-0.4) x10^3/uL ESR 32 H (0-15) mm/hr PT (9.4-12.5) SECONDS INR (0.8-3.0) APTT (25.1-36.5) SECONDS Sodium 135 L (137-145) mmol/L Potassium 4.9 (3.5-5.1) mmol/L Chloride 103 (98-107) mmol/L Carbon Dioxide 28 (22-30) mmol/L Anion Gap 9.3 (5-15) MEQ/L BUN 48 H (9-20) mg/dL Creatinine 1.89 H (0.66-1.25) mg/dL Estimated GFR 37.0 ML/MIN Glucose 78 (74-106) mg/dL POC Glucometer (74 to 106) mg/dL Hemoglobin A1c (4.5-6.0) % Lactic Acid 0.8 (0.4-2.0) Calcium 8.9 (8.4-10.2) mg/dL Total Bilirubin 0.30 (0.2-1.3) mg/dL AST 37 (17-59) U/L ALT 14 (0-50) U/L Alkaline Phosphatase 66 (38-126) U/L Serum Total Protein 8.2 (6.3-8.2) g/dL Albumin 4.2 (3.5-5.0) g/dL Prealbumin (17.6-36.0) mg/dL Influenza Type A Ag (NEGATIVE) Influenza Type B Ag (NEGATIVE) RSV (PCR) (Negative) SARS-CoV-2 (PCR) (NEGATIVE) 01/26/22 01/26/22 01/26/22 Range/Units 13:07 16:27 21:13 WBC (4.0-10.5) x10^3/uL RBC (4.1-5.6) x10^6/uL Hgb (12.5-18.0) g/dL Hct (42-50) % MCV (78-100) fL MCH (26-32) pg MCHC (32-36) g/dL RDW (11.5-14.0) % Plt Count (150-450) x10^3/uL MPV (7.5-11.0) fL Gran % (36.0-66.0) % Immature Gran % (Auto) (0.00-0.4) % Nucleat RBC Rel Count (0.00-0.1) % Eos # (Auto) (0-0.5) x10^3/uL Immature Gran # (Auto) (0.00-0.03) x10^3u/L Absolute Lymphs (auto) (1.0-4.6) x10^3/uL Absolute Monos (auto) (0.0-1.3) x10^3/uL Absolute Nucleated RBC (0.00-0.01) x10^3u/L Lymphocytes % (24.0-44.0) % Monocytes % (0.0-12.0) % Eosinophils % (0.00-5.0) % Basophils % (0.0-0.4) % Absolute Granulocytes (1.4-6.9) x10^3/uL Basophils # (0-0.4) x10^3/uL ESR (0-15) mm/hr PT (9.4-12.5) SECONDS INR (0.8-3.0) APTT (25.1-36.5) SECONDS Sodium (137-145) mmol/L Potassium (3.5-5.1) mmol/L Chloride (98-107) mmol/L Carbon Dioxide (22-30) mmol/L Anion Gap (5-15) MEQ/L BUN (9-20) mg/dL Creatinine (0.66-1.25) mg/dL Estimated GFR ML/MIN Glucose (74-106) mg/dL POC Glucometer 75 188 H (74 to 106) mg/dL Hemoglobin A1c (4.5-6.0) % Lactic Acid (0.4-2.0) Calcium (8.4-10.2) mg/dL Total Bilirubin (0.2-1.3) mg/dL AST (17-59) U/L ALT (0-50) U/L Alkaline Phosphatase (38-126) U/L Serum Total Protein (6.3-8.2) g/dL Albumin (3.5-5.0) g/dL Prealbumin 16.76 L (17.6-36.0) mg/dL Influenza Type A Ag (NEGATIVE) Influenza Type B Ag (NEGATIVE) RSV (PCR) (Negative) SARS-CoV-2 (PCR) (NEGATIVE) 01/26/22 01/27/22 01/27/22 Range/Units Unknown 07:15 07:42 WBC (4.0-10.5) x10^3/uL RBC (4.1-5.6) x10^6/uL Hgb (12.5-18.0) g/dL Hct (42-50) % MCV (78-100) fL MCH (26-32) pg MCHC (32-36) g/dL RDW (11.5-14.0) % Plt Count (150-450) x10^3/uL MPV (7.5-11.0) fL Gran % (36.0-66.0) % Immature Gran % (Auto) (0.00-0.4) % Nucleat RBC Rel Count (0.00-0.1) % Eos # (Auto) (0-0.5) x10^3/uL Immature Gran # (Auto) (0.00-0.03) x10^3u/L Absolute Lymphs (auto) (1.0-4.6) x10^3/uL Absolute Monos (auto) (0.0-1.3) x10^3/uL Absolute Nucleated RBC (0.00-0.01) x10^3u/L Lymphocytes % (24.0-44.0) % Monocytes % (0.0-12.0) % Eosinophils % (0.00-5.0) % Basophils % (0.0-0.4) % Absolute Granulocytes (1.4-6.9) x10^3/uL Basophils # (0-0.4) x10^3/uL ESR (0-15) mm/hr PT (9.4-12.5) SECONDS INR (0.8-3.0) APTT (25.1-36.5) SECONDS Sodium (137-145) mmol/L Potassium (3.5-5.1) mmol/L Chloride (98-107) mmol/L Carbon Dioxide (22-30) mmol/L Anion Gap (5-15) MEQ/L BUN (9-20) mg/dL Creatinine (0.66-1.25) mg/dL Estimated GFR ML/MIN Glucose (74-106) mg/dL POC Glucometer 43 L* 57 L (74 to 106) mg/dL Hemoglobin A1c 7.21 H (4.5-6.0) % Lactic Acid (0.4-2.0) Calcium (8.4-10.2) mg/dL Total Bilirubin (0.2-1.3) mg/dL AST (17-59) U/L ALT (0-50) U/L Alkaline Phosphatase (38-126) U/L Serum Total Protein (6.3-8.2) g/dL Albumin (3.5-5.0) g/dL Prealbumin (17.6-36.0) mg/dL Influenza Type A Ag (NEGATIVE) Influenza Type B Ag (NEGATIVE) RSV (PCR) (Negative) SARS-CoV-2 (PCR) (NEGATIVE) Accuchecks Date 01/27/22 Date 01/27/22 Date 01/26/22 Time 07:48 Time 07:26 Time 16:30 - Radiology Impressions Radiology Exams & Impressions: Radiology Procedures Category Date Time Status GUIDE FOR VASCULAR ACCESS [US] Routine Exams 01/26/22 10:16 Completed PICC LINE PLACEMENT Routine Exams 01/26/22 10:15 Completed Assessment/Plan (1) Diabetic ulcer of left foot Current Visit: No Status: Chronic Assessment & Plan: patient is on zosyn IV currently, wound culture is pending Code(s): E11.621 - TYPE 2 DIABETES MELLITUS WITH FOOT ULCER; L97.529 - NON- PRESSURE CHRONIC ULCER OTH PRT LEFT FOOT W UNSP SEVERITY (2) Diabetes mellitus type 2, insulin dependent Current Visit: No Status: Chronic Assessment & Plan: a1c 7.2% on admission Code(s): E11.9 - TYPE 2 DIABETES MELLITUS WITHOUT COMPLICATIONS; Z79.4 - RETIREMENT (CURRENT) USE OF INSULIN (3) CAD (coronary artery disease) Current Visit: No Status: Chronic Code(s): I25.10 - ATHSCL HEART DISEASE OF [place] CORONARY ARTERY W/O ANG PCTRS
[2022-01-27] MEDS ORDERED: NON-FORMULARY ITEM (Bisoprolol Fumarate [Bisoprolol Fumarate] 10 MG Tablet) PO SCH (10:00)
[2022-01-27] MEDS ORDERED: NON-FORMULARY ITEM (Insulin Degludec [Tresiba Flextouch U-100] 100 UNIT/ML Insuln.Pen) SQ SCH (10:00)
[2022-01-27] MEDS ORDERED: FENOFIBRATE 40 MG PO SCH (10:00)
[2022-01-27] MEDS ORDERED: B6 PO SCH (10:00)
[2022-01-27] MEDS ORDERED: ROSUVASTATIN CALCIUM 20 MG PO SCH (10:00)
[2022-01-27] MEDS ORDERED: B12 PO SCH (10:00)
[2022-01-27] MEDS ORDERED: LEVOMEFOLATE CALCIUM PO SCH (10:00)
[2022-01-27] MEDS: Lantus Insulin SQ SCH (10:23)
[2022-01-27] MEDS: NORVASC 5 MG PO SCH ×2 (10:29→22:25)
[2022-01-27] MEDS: Effexor XR 75 MG PO SCH ×2 (11:31→22:25)
[2022-01-27] MEDS: Zetia 10 MG PO SCH (11:32)
[2022-01-27] MEDS: Tricor 145 MG PO SCH (11:32)
[2022-01-27] MEDS: ZYLOPRIM 100 MG PO SCH ×2 (11:32→22:25)
[2022-01-27] MEDS: ZOCOR 20MG PO SCH (11:32)
[2022-01-27] MEDS: ECOTRIN 81 MG PO SCH (11:33)
[2022-01-27] MEDS: FOLTX (FOLBIC) PO SCH (11:33)
[2022-01-27] MEDS: Dakin's Soln FULL STRENGTH TP SCH (11:41)
--- NOTE | 2022-01-27 13:07 | PCM.CONS ---
Podiatry HPI - Consult Reason for Consult: Diabetic foot ulcer left foot/postsurgical dehiscence for ulcer repair Consulting Provider: SKYLAR ARELLANO DPM - HPI History of Present Illness: Juni is a very pleasant 76-year-old male who is well-known to my service for Charcot deformity of the left lower extremity. Patient recently underwent a cuboid and fifth metatarsal debridement and planing in order to offload ulcer to the left lower extremity secondary to his Charcot deformity. Following an attempt at primary closure of the wound patient had a significant amount of maceration at the wound edges and a dehiscence of the diabetic foot ulcer/pretty rgical wound this is been progressing up until the last 2 weeks where patient has developed some signs of clinical infection. Patient has failed outpatient therapy as he has had 2 cultures demonstrating Pseudomonas aeruginosa. At this time recommendation was made for inpatient stay with IV antibiotics. Patient is extremely adamant that he will not go to a nursing facility he currently denies any constitutional symptoms of infection. He denies any other pedal complaints at this time Medications & Allergies Home Medications: Home Medication List Allopurinol 100 mg [Zyloprim 100 mg] 200 mg PO BID 07/10/13 [History Confirmed 01/26/22] Aspirin EC 325 mg [Ecotrin 325 MG] 81 mg PO DAILY 07/10/13 [History Confirmed 01/26/22] Bisoprolol Fumarate 5 mg PO DAILY 06/08/21 [History Confirmed 01/26/22] Fenofibrate 67 mg PO DAILY 06/08/21 [History Confirmed 01/26/22] Pantoprazole Sodium 40 mg PO UD PRN 06/08/21 [History Confirmed 01/26/22] Rosuvastatin Calcium [Ezallor Sprinkle] 20 mg PO DAILY 06/08/21 [History Confirmed 01/26/22] Venlafaxine HCl [Venlafaxine HCl ER] 150 mg PO BID 06/08/21 [History Confirmed 01/26/22] Amlodipine Besylate 5 mg [Norvasc 5 mg] 5 mg PO BID 11/17/21 [History Confirmed 01/26/22] Chlordiazepoxide/Clidinium Br [Librax Capsule] 1 cap PO DAILY PRN PRN 11/17/21 [History Confirmed 01/26/22] Cyclobenzaprine HCl 10 mg [Cyclobenzaprine 10 MG] 5 mg PO QID PRN PRN 11/17/21 [History Confirmed 01/26/22] Ezetimibe 10 mg [Zetia 10 MG] 10 mg PO DAILY 11/17/21 [History Confirmed 01/26/22] Insulin Aspart [Novolog] See Rx Instructions .ROUTE .COMPLEX 11/17/21 [History Confirmed 01/26/22] Insulin Degludec [Tresiba Flextouch U-100] 120 unit SQ DAILY 11/17/21 [History Confirmed 01/26/22] Montelukast Sodium 10 mg [Singulair 10 MG] 10 mg PO DAILY PRN PRN 11/17/21 [History Confirmed 01/26/22] B12/Levomefolate Calcium/B-6 [Folbic Rf Tablet] 1 tab PO DAILY 01/26/22 [History Confirmed 01/26/22] Hydrocodone/Acetaminophen [Hydrocodone-Acetamin 5-325 mg] 1 tab PO DAILY PRN PRN 01/26/22 [History Confirmed 01/26/22] Allergies/Adverse Reactions: Allergies Allergy/AdvReac Type Severity Reaction Status Date / Time brompheniramine maleate Allergy Intermediate Rapid Verified 11/24/21 11:15 [From Dimetapp Heart Beat (brompheniramine-PPA)] ciprofloxacin [From Cipro] Allergy Intermediate Verified 11/17/21 10:16 ciprofloxacin HCl Allergy Intermediate Headache Verified 11/24/21 11:15 [From Cipro] phenylpropanolamine HCl Allergy Intermediate Rapid Verified 11/24/21 11:16 [From Dimetapp Heart Beat (brompheniramine-PPA)] - Past Medical History Past Medical History: Yes Neurological History: Peripheral Neuropathy, Stroke ENT History: Cataracts, Glaucoma, Other Cardiac History: Coronary Artery Disease, High Cholesterol, Hypertension, Myocardial Infarction (ND), Peripheral Vascular Disease Respiratory History: No Pertinent History Endocrine Medical History: Diabetes Type II, Hypoglycemia Musculoskelatal History: Arthritis GI Medical History: Hepatitis, Irritable Bowel History: No Pertinent History Pyscho-Social History: Anxiety, Depression Male Reproductive Disorders: No Pertinent History Comment: Hepatitis A in 1985 - Past Surgical History Past Surgical History: Yes Neuro Surgical History: No Pertinent History Cardiac History: CABG, Cardiac Catheterization Respiratory Surgery: No Pertinent History GI Surgical History: Cholecystectomy Genitourinary Surgical Hx: No Pertinent History Musculskeletal Surgical Hx: No Pertinent History Male Surgical History: Vasectomy Other Surgical History: 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 - Social History Smoking Status: Former smoker Exposure to second hand smoke: No Alcohol: None Drug Use: none Physical Exam - Narrative Narrative Physical Exam: Podiatry Physical Exam Vascular: DP and PT pulses non-palpable b/l. CFT <5 seconds b/l. Skin temperature warm to cool from the proximal tibial tuberosity to distal toes b/l. Diminished pedal hair growth b/l. Varicosities noted to lower legs b/l. No cellulitis, proximal streaking or lymphangitis noted. No significant edema noted. No lymphadenopathy on palpation of the popliteal and inguinal lymph nodes b/l. Neurological: Protective sensation diminished 0/10 on the right and 0/10 on the left as indicated with Hamlin-Jose 5.07 monofilament b/l. Vibratory sensation is diminished at 0/20. Patellar and achilles reflexes are brisk. Lower extremity temperature sensation diminished b/l. Dermatological: Trophic changes to the skin. Skin is xerotic and scaly in nature. Turgor is rigid. signficant maceration noted to the surgical site. Webspaces are clean, dry and intact b/l. Musculoskeletal: Strength intact for all muscle groups to the bilateral lower extremity. Classic rocker-bottom deformity to left lower extremity indicated by the Charcot with a plantarflexed cuboid bone of the left foot. Right foot is rectus. Amputation of hallux to the left foot evidence of intrinsic muscle atrophy as indicated with digital contractures 2 through 5 which are rigid in nature. Restricted range of motion to almost all joints to the left foot with a dorsiflexor he range of motion limitation with the knee extended however when the knee is flexed there is an increase in range of motion indicating a gastrocnemius equinus. There is normal range of motion to all pedal joints on the right foot with a dorsiflexor limitation with the knee extended however when the knee is flexed there is an increase in the range of motion indicating a gastrocnemius equinus here as well. Negative pain on palpation of any other prominences. There is a classic rocker-bottom deformity to the left foot with the cuboid at the lowest position. Normal gait and ky nonantalgic however waddling. Patient ambulating in a pair of custom made inserts with slip on loafers Imagin views left foot demonstrating significantly plantarflexed talus with a Charcot dissolution at the Lisfranc's joint. Partial amputation of the first ray in conjunction with the first toe. Subluxation of the second metatarsophalangeal joint dorsally os trigonum otherwise normal soft tissue planes. Cuboid subluxed plantarly no other soft tissue or osseous abnormalities identified Right ankle 3 views weightbearing demonstrating normal soft tissue planes. No indications of subluxation mild periarticular osteophytes noted ankle mortise intact subtalar joint without incongruency's. No other soft tissue or osseous abnormalities identified. Results - Labs Lab/Micro Results: Lab Results-Last 24 Hours 01/26/22 01/26/22 01/26/22 Range/Units 10:20 13:07 16:27 POC Glucometer 75 (74 to 106) mg/dL Hemoglobin A1c (4.5-6.0) % C-Reactive Prot, Quant 4 (0-10) mg/L Prealbumin 16.76 L (17.6-36.0) mg/dL 01/26/22 01/26/22 01/27/22 Range/Units 21:13 Unknown 07:15 POC Glucometer 188 H 43 L* (74 to 106) mg/dL Hemoglobin A1c 7.21 H (4.5-6.0) % C-Reactive Prot, Quant (0-10) mg/L Prealbumin (17.6-36.0) mg/dL 01/27/22 01/27/22 Range/Units 07:42 11:06 POC Glucometer 57 L 240 H (74 to 106) mg/dL Hemoglobin A1c (4.5-6.0) % C-Reactive Prot, Quant (0-10) mg/L Prealbumin (17.6-36.0) mg/dL Accuchecks Date 01/27/22 Date 01/27/22 Date 01/27/22 Date 01/26/22 Time 11:23 Time 07:48 Time 07:26 Time 16:30 - Radiology Impressions Radiology Exams & Impressions: Radiology Procedures Category Date Time Status GUIDE FOR VASCULAR ACCESS [US] Routine Exams 12/20/22 10:16 Completed PICC LINE PLACEMENT Routine Exams 01/26/22 10:15 Completed Assessment/Plan (1) Charcot arthropathy of midfoot Current Visit: Yes Status: Acute Assessment & Plan: Patient examination evaluation Radiographs reviewed and discussed with patient demonstrating planing of bones to the left foot with delayed primary closure. Debridement of wound to the plantar aspect of surgical extremity demonstrating postdebridement measurement of 6.0 x 2.0 x 1.0 at this time depth is what is concerning and maceration of the wound Failed out patient abx at this time growing psuedomonas. Continue Zosyn. No plans for bone biopsy as infection is acute and charcot deformity chronic. Will proceed with Biopsy if worsening of the wound despite antibiotic therapy. Patient defers long term facility placement for continued abx at this time. We will proceed with checking on if patient is candidate for home infusions. Patient lacks transportation and has difficulty with coordination with family. Will follow closely. 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
[2022-01-27 18:05] LABS: Absolute Neutrophil Ct (ANC) 3.56 x10^3/uL (1.4-6.9); Basophil (Absolute #) 0.03 x10^3/uL (0-0.4); Eosinophil % 2.5 % (0.00-5.0); Eosinophil (Absolute #) 0.15 x10^3/uL (0-0.5); Hematocrit 33.4 % (42-50); Hemoglobin 10.3 g/dL (12.5-18.0); Lymphocyte (Absolute #) 1.76 x10^3/uL (1.0-4.6); Lymphocytes % 28.8 % (24.0-44.0); Mean Cell Volume 98.5 fL (78-100); Mean Corpuscular Hemoglobin 30.4 pg (26-32); Mean Corpuscular Hgb Concent. 30.8 g/dL (32-36); Mean Platelet Volume 9.2 fL (7.5-11.0); Monocyte (Absolute #) 0.61 x10^3/uL (0.0-1.3); Platelet Count 283 x10^3/uL (150-450); Red Blood Count 3.39 x10^6/uL (4.1-5.6); Red Cell Distribution Width 14.2 % (11.5-14.0); White Blood Count 6.1 x10^3/uL (4.0-10.5)
[2022-01-27] MEDS: HUMALOG SQ PRN (22:25)
[2022-01-28 05:34] LABS: Absolute Neutrophil Ct (ANC) 2.71 x10^3/uL (1.4-6.9); Basophil (Absolute #) 0.03 x10^3/uL (0-0.4); Eosinophil % 3.3 % (0.00-5.0); Eosinophil (Absolute #) 0.17 x10^3/uL (0-0.5); Hemoglobin 10.2 g/dL (12.5-18.0); Lymphocyte (Absolute #) 1.75 x10^3/uL (1.0-4.6); Lymphocytes % 33.7 % (24.0-44.0); Mean Cell Volume 96.5 fL (78-100); Mean Corpuscular Hemoglobin 29.8 pg (26-32); Mean Corpuscular Hgb Concent. 30.9 g/dL (32-36); Mean Platelet Volume 8.4 fL (7.5-11.0); Monocyte (Absolute #) 0.53 x10^3/uL (0.0-1.3); Monocytes % 10.2 % (0.0-12.0); Platelet Count 239 x10^3/uL (150-450); Red Blood Count 3.42 x10^6/uL (4.1-5.6); Red Cell Distribution Width 13.7 % (11.5-14.0); White Blood Count 5.2 x10^3/uL (4.0-10.5)
[2022-01-28] MEDS: PIPERACILLIN/TAZOBACTAM 3.375 GM in Sodium Chloride 100ML MINI-BAG PLUS 100 ML IV SCH ×3 (05:40→21:48)
--- NOTE | 2022-01-28 07:26 | PCM.NOTE ---
Date and Time: 01/28/22724 Subjective Assessment: patient is doing well, he has no complaints this morning Objective Exam General Appearance: no apparent distress Neurologic Exam: alert Wound Assessment: Skin/Wound Assessment Wound/Incision Assessment Start: 01/26/22 12:40 Text: Status: Active Freq: Q6H Protocol: Document 01/28/22 02:00 CB (Rec: 01/28/22 03:33 CB [id number]) Wound/Incision Assessment Left Lateral Volar Foot Wound Assessment Shift Assessment Wound Type DECUBITUS ULCER Dressing Status Dry & Intact Comment Unable to assess wound itself R/T dsg in place. Dsg is clean , dry, & intact. Respiratory Exam: normal breath sounds, lungs clear, No respiratory distress Cardiovascular Exam: regular rate/rhythm, normal heart sounds Gastrointestinal/Abdomen Exam: soft, No tenderness, No mass Extremity Exam: other (dressing intact to left foot, wound appears unchanged without removing bandage) OBJECTIVE DATA Vital Signs: Vital Signs - 24 hr Temp Pulse Resp BP Pulse Ox 01/28/22 04:00 97.1 F 59 L 20 109/54 96 01/27/22 23:58 97.8 F 66 20 116/59 97 01/27/22 20:00 97.1 F 62 20 108/53 98 01/27/22 16:00 97.5 F 59 L 18 113/56 100 01/27/22 11:23 98.0 F 58 L 16 107/53 97 01/27/22 07:26 98.0 F 59 L 16 92/53 97 Pain Assessment - Last Documented Pain Intensity 0 Intake and Output: Intake & Output 01/25/22 01/26/22 01/27/22 01/28/22 11:59 11:59 11:59 11:59 Intake Total 1340 1780 Output Total 3000 1550 Balance -1660 230 Weight 117 kg Lab Results: Lab Results-Last 24 Hours 01/26/22 01/27/22 01/27/22 Range/Units 10:20 07:42 11:06 WBC (4.0-10.5) x10^3/uL RBC (4.1-5.6) x10^6/uL Hgb (12.5-18.0) g/dL Hct (42-50) % MCV (78-100) fL MCH (26-32) pg MCHC (32-36) g/dL RDW (11.5-14.0) % Plt Count (150-450) x10^3/uL MPV (7.5-11.0) fL Gran % (36.0-66.0) % Immature Gran % (Auto) (0.00-0.4) % Nucleat RBC Rel Count (0.00-0.1) % Eos # (Auto) (0-0.5) x10^3/uL Immature Gran # (Auto) (0.00-0.03) x10^3u/L Absolute Lymphs (auto) (1.0-4.6) x10^3/uL Absolute Monos (auto) (0.0-1.3) x10^3/uL Absolute Nucleated RBC (0.00-0.01) x10^3u/L Lymphocytes % (24.0-44.0) % Monocytes % (0.0-12.0) % Eosinophils % (0.00-5.0) % Basophils % (0.0-0.4) % Absolute Granulocytes (1.4-6.9) x10^3/uL Basophils # (0-0.4) x10^3/uL POC Glucometer 57 L 240 H (74 to 106) mg/dL C-Reactive Prot, Quant 4 (0-10) mg/L 01/27/22 01/27/22 01/27/22 Range/Units 17:13 21:31 Unknown WBC 6.1 (4.0-10.5) x10^3/uL RBC 3.39 L (4.1-5.6) x10^6/uL Hgb 10.3 L (12.5-18.0) g/dL Hct 33.4 L (42-50) % MCV 98.5 (78-100) fL MCH 30.4 (26-32) pg MCHC 30.8 L (32-36) g/dL RDW 14.2 H (11.5-14.0) % Plt Count 283 (150-450) x10^3/uL MPV 9.2 (7.5-11.0) fL Gran % 58.0 (36.0-66.0) % Immature Gran % (Auto) 0.2 (0.00-0.4) % Nucleat RBC Rel Count 0.0 (0.00-0.1) % Eos # (Auto) 0.15 (0-0.5) x10^3/uL Immature Gran # (Auto) 0.01 (0.00-0.03) x10^3u/L Absolute Lymphs (auto) 1.76 (1.0-4.6) x10^3/uL Absolute Monos (auto) 0.61 (0.0-1.3) x10^3/uL Absolute Nucleated RBC 0.00 (0.00-0.01) x10^3u/L Lymphocytes % 28.8 (24.0-44.0) % Monocytes % 10.0 (0.0-12.0) % Eosinophils % 2.5 (0.00-5.0) % Basophils % 0.5 (0.0-0.4) % Absolute Granulocytes 3.56 (1.4-6.9) x10^3/uL Basophils # 0.03 (0-0.4) x10^3/uL POC Glucometer 247 H 354 H (74 to 106) mg/dL C-Reactive Prot, Quant (0-10) mg/L 01/28/22 01/28/22 01/28/22 Range/Units 04:45 05:17 06:59 WBC 5.2 (4.0-10.5) x10^3/uL RBC 3.42 L (4.1-5.6) x10^6/uL Hgb 10.2 L (12.5-18.0) g/dL Hct 33.0 L (42-50) % MCV 96.5 (78-100) fL MCH 29.8 (26-32) pg MCHC 30.9 L (32-36) g/dL RDW 13.7 (11.5-14.0) % Plt Count 239 (150-450) x10^3/uL MPV 8.4 (7.5-11.0) fL Gran % 52.0 (36.0-66.0) % Immature Gran % (Auto) 0.2 (0.00-0.4) % Nucleat RBC Rel Count 0.0 (0.00-0.1) % Eos # (Auto) 0.17 (0-0.5) x10^3/uL Immature Gran # (Auto) 0.01 (0.00-0.03) x10^3u/L Absolute Lymphs (auto) 1.75 (1.0-4.6) x10^3/uL Absolute Monos (auto) 0.53 (0.0-1.3) x10^3/uL Absolute Nucleated RBC 0.00 (0.00-0.01) x10^3u/L Lymphocytes % 33.7 (24.0-44.0) % Monocytes % 10.2 (0.0-12.0) % Eosinophils % 3.3 (0.00-5.0) % Basophils % 0.6 (0.0-0.4) % Absolute Granulocytes 2.71 (1.4-6.9) x10^3/uL Basophils # 0.03 (0-0.4) x10^3/uL POC Glucometer 201 H 147 H (74 to 106) mg/dL C-Reactive Prot, Quant (0-10) mg/L Radiology Exams: Radiology Procedures Category Date Time Status GUIDE FOR VASCULAR ACCESS [US] Routine Exams 01/26/22 10:16 Completed PICC LINE PLACEMENT Routine Exams 01/26/22 10:15 Completed Multi-Disciplinary Progress Notes: Multi-Disciplinary Progress Notes 01/27/22 14:26 Occupational Therapy Note by Itz(L#[id number])[facility] Occupational Therapy Treatment Note ([id number]) Patient lying in bed upon OTR arrival and was agreeable to treatment session. OTR reviewed orthopedic precautions for LLE WB and reinforced NWB status. Patient completed bed<>w/c transfer with MOD cueing for safety and technique in prep for and following grooming/hygiene tasks at w/c level to wash face and neck, brush teeth, and wash hands with setup. Juni tolerated today's treatment session well and was talkative and in good spirits throughout treatment. He was in bed with BLE elevated by session end with call light and bedside table within reach. Will continue to see patient through duration of stay to address independence and safety with I/ADLs, AE/AD/DME education, and facilitation of improved I/ADL performance. Initialized on 01/27/22 14:26 - END OF NOTE Assessment/Plan (1) Diabetic ulcer of left foot Current Visit: No Status: Chronic Assessment & Plan: pseudomonas in culture, continue zosyn. Code(s): E11.621 - TYPE 2 DIABETES MELLITUS WITH FOOT ULCER; L97.529 - NON- PRESSURE CHRONIC ULCER OTH PRT LEFT FOOT W UNSP SEVERITY (2) Diabetes mellitus type 2, insulin dependent Current Visit: No Status: Chronic Code(s): E11.9 - TYPE 2 DIABETES MELLITUS WITHOUT COMPLICATIONS; Z79.4 - FRONT OFFICE MANAGER (CURRENT) USE OF INSULIN (3) CAD (coronary artery disease) Current Visit: No Status: Chronic Code(s): I25.10 - ATHSCL HEART DISEASE OF [place] CORONARY ARTERY W/O ANG PCTRS
[2022-01-28] MEDS: Effexor XR 75 MG PO SCH ×2 (09:46→21:48)
[2022-01-28] MEDS: Zetia 10 MG PO SCH (09:46)
[2022-01-28] MEDS: ZOCOR 20MG PO SCH (09:46)
[2022-01-28] MEDS: Tricor 145 MG PO SCH (09:46)
[2022-01-28] MEDS: NORVASC 5 MG PO SCH ×2 (09:46→21:48)
[2022-01-28] MEDS: ECOTRIN 81 MG PO SCH (09:46)
[2022-01-28] MEDS: ZYLOPRIM 100 MG PO SCH ×2 (09:46→21:48)
[2022-01-28] MEDS: FOLTX (FOLBIC) PO SCH (09:47)
[2022-01-28] MEDS: Dakin's Soln FULL STRENGTH TP SCH (09:47)
[2022-01-28] MEDS: Lantus Insulin SQ SCH (09:47)
[2022-01-28] MEDS: Bystolic 5 MG PO SCH (11:46)
--- NOTE | 2022-01-28 16:02 | PCM.NOTE ---
Date and Time: 01/28/22 1602 Subjective Assessment: Progressing without complication Physical Exam - Narrative Narrative Physical Exam: Podiatry Physical Exam Podiatry Physical Exam Vascular: DP and PT pulses non-palpable b/l. CFT <5 seconds b/l. Skin temperature warm to cool from the proximal tibial tuberosity to distal toes b/l. Diminished pedal hair growth b/l. Varicosities noted to lower legs b/l. No cellulitis, proximal streaking or lymphangitis noted. No significant edema noted. No lymphadenopathy on palpation of the popliteal and inguinal lymph nodes b/l. Neurological: Protective sensation diminished 0/10 on the right and 0/10 on the left as indicated with [place] 5.07 monofilament b/l. Vibratory sensation is diminished at 0/20. Patellar and achilles reflexes are brisk. Lower extremity temperature sensation diminished b/l. Dermatological: Trophic changes to the skin. Skin is xerotic and scaly in nature. Turgor is rigid. signficant maceration noted to the surgical site. Webspaces are clean, dry and intact b/l. Musculoskeletal: Strength intact for all muscle groups to the bilateral lower extremity. Classic rocker-bottom deformity to left lower extremity indicated by the Charcot with a plantarflexed cuboid bone of the left foot. Right foot is rectus. Amputation of hallux to the left foot evidence of intrinsic muscle atrophy as indicated with digital contractures 2 through 5 which are rigid in nature. Restricted range of motion to almost all joints to the left foot with a dorsiflexor he range of motion limitation with the knee extended however when the knee is flexed there is an increase in range of motion indicating a gastrocnemius equinus. There is normal range of motion to all pedal joints on the right foot with a dorsiflexor limitation with the knee extended however when the knee is flexed there is an increase in the range of motion indicating a gastrocnemius equinus here as well. Negative pain on palpation of any other prominences. There is a classic rocker-bottom deformity to the left foot with the cuboid at the lowest position. Normal gait and ky nonantalgic however waddling. Patient ambulating in a pair of custom made inserts with slip on loafers Imagin views left foot demonstrating significantly plantarflexed talus with a Charcot dissolution at the Lisfranc's joint. Partial amputation of the first ray in conjunction with the first toe. Subluxation of the second metatarsophalangeal joint dorsally os trigonum otherwise normal soft tissue planes. Cuboid subluxed plantarly no other soft tissue or osseous abnormalities identified Right ankle 3 views weightbearing demonstrating normal soft tissue planes. No indications of subluxation mild periarticular osteophytes noted ankle mortise intact subtalar joint without incongruency's. No other soft tissue or osseous abnormalities identified. OBJECTIVE DATA Vital Signs: Vital Signs - 24 hr Temp Pulse Resp BP Pulse Ox 01/28/22 15:05 97.1 F 93 H 18 101/51 97 01/28/22 12:00 97.1 F 69 18 133/67 01/28/22 07:33 98.4 F 57 L 18 92/54 95 01/28/22 04:00 97.1 F 59 L 20 109/54 96 01/27/22 23:58 97.8 F 66 20 116/59 97 01/27/22 20:00 97.1 F 62 20 108/53 98 Pain Assessment - Last Documented Pain Intensity 0 Intake and Output: Intake & Output 01/26/22 01/27/22 01/28/22 01/29/22 11:59 11:59 11:59 11:59 Intake Total 1340 2140 480 Output Total 3000 1550 Balance -1660 590 480 Weight 117 kg 117 kg Lab Results: Lab Results-Last 24 Hours 01/27/22 01/27/22 01/27/22 Range/Units 17:13 21:31 Unknown WBC 6.1 (4.0-10.5) x10^3/uL RBC 3.39 L (4.1-5.6) x10^6/uL Hgb 10.3 L (12.5-18.0) g/dL Hct 33.4 L (42-50) % MCV 98.5 (78-100) fL MCH 30.4 (26-32) pg MCHC 30.8 L (32-36) g/dL RDW 14.2 H (11.5-14.0) % Plt Count 283 (150-450) x10^3/uL MPV 9.2 (7.5-11.0) fL Gran % 58.0 (36.0-66.0) % Immature Gran % (Auto) 0.2 (0.00-0.4) % Nucleat RBC Rel Count 0.0 (0.00-0.1) % Eos # (Auto) 0.15 (0-0.5) x10^3/uL Immature Gran # (Auto) 0.01 (0.00-0.03) x10^3u/L Absolute Lymphs (auto) 1.76 (1.0-4.6) x10^3/uL Absolute Monos (auto) 0.61 (0.0-1.3) x10^3/uL Absolute Nucleated RBC 0.00 (0.00-0.01) x10^3u/L Lymphocytes % 28.8 (24.0-44.0) % Monocytes % 10.0 (0.0-12.0) % Eosinophils % 2.5 (0.00-5.0) % Basophils % 0.5 (0.0-0.4) % Absolute Granulocytes 3.56 (1.4-6.9) x10^3/uL Basophils # 0.03 (0-0.4) x10^3/uL POC Glucometer 247 H 354 H (74 to 106) mg/dL 01/28/22 01/28/22 01/28/22 Range/Units 04:45 05:17 06:59 WBC 5.2 (4.0-10.5) x10^3/uL RBC 3.42 L (4.1-5.6) x10^6/uL Hgb 10.2 L (12.5-18.0) g/dL Hct 33.0 L (42-50) % MCV 96.5 (78-100) fL MCH 29.8 (26-32) pg MCHC 30.9 L (32-36) g/dL RDW 13.7 (11.5-14.0) % Plt Count 239 (150-450) x10^3/uL MPV 8.4 (7.5-11.0) fL Gran % 52.0 (36.0-66.0) % Immature Gran % (Auto) 0.2 (0.00-0.4) % Nucleat RBC Rel Count 0.0 (0.00-0.1) % Eos # (Auto) 0.17 (0-0.5) x10^3/uL Immature Gran # (Auto) 0.01 (0.00-0.03) x10^3u/L Absolute Lymphs (auto) 1.75 (1.0-4.6) x10^3/uL Absolute Monos (auto) 0.53 (0.0-1.3) x10^3/uL Absolute Nucleated RBC 0.00 (0.00-0.01) x10^3u/L Lymphocytes % 33.7 (24.0-44.0) % Monocytes % 10.2 (0.0-12.0) % Eosinophils % 3.3 (0.00-5.0) % Basophils % 0.6 (0.0-0.4) % Absolute Granulocytes 2.71 (1.4-6.9) x10^3/uL Basophils # 0.03 (0-0.4) x10^3/uL POC Glucometer 201 H 147 H (74 to 106) mg/dL // Range/Units 11:23 WBC (4.0-10.5) x10^3/uL RBC (4.1-5.6) x10^6/uL Hgb (12.5-18.0) g/dL Hct (42-50) % MCV (78-100) fL MCH (26-32) pg MCHC (32-36) g/dL RDW (11.5-14.0) % Plt Count (150-450) x10^3/uL MPV (7.5-11.0) fL Gran % (36.0-66.0) % Immature Gran % (Auto) (0.00-0.4) % Nucleat RBC Rel Count (0.00-0.1) % Eos # (Auto) (0-0.5) x10^3/uL Immature Gran # (Auto) (0.00-0.03) x10^3u/L Absolute Lymphs (auto) (1.0-4.6) x10^3/uL Absolute Monos (auto) (0.0-1.3) x10^3/uL Absolute Nucleated RBC (0.00-0.01) x10^3u/L Lymphocytes % (24.0-44.0) % Monocytes % (0.0-12.0) % Eosinophils % (0.00-5.0) % Basophils % (0.0-0.4) % Absolute Granulocytes (1.4-6.9) x10^3/uL Basophils # (0-0.4) x10^3/uL POC Glucometer 161 H (74 to 106) mg/dL Multi-Disciplinary Progress Notes: Multi-Disciplinary Progress Notes 01/28/22 15:49 Occupational Therapy Note by Latonia Stevenson OCCUPATIONAL THERAPY TREATMENT (15:20-15:45) PATIENT ENGAGES IN FUNCTIONAL TRANSFERS WITH STANDARD WALKER. PATIENT TRANSFERS WITH SBA AND APPROPRIATE AWARENESS TO WB PRECAUTIONS. PATIENT REPORTS THAT STANDING UP FELT GOOD AND RELIEF. PATIENT RETURNS TO SITTING AND ENGAGES IN UE HEP WITH GOOD RETURN DEMO. OT LOCATED AND PLACED RECLINER IN ROOM, AND LOCKED ON WHEELS BUT CONTINUES TO SWIVELS. PATIENT WITH STRICT INSTRUCTIONS ON CALLING NURSING STAFF TO ASSIST WITH TRANSFER. OT CONTACTED MAINTENANCE ABOUT CHAIR. Initialized on 01/28/22 15:49 - END OF NOTE 01/28/22 10:21 Occupational Therapy Note by Itz(L#[id number]),Lindsay Occupational Therapy Treatment Note [id number] Patient seated in wheelchair upon OTR approach. He reported that he was having a rough morning and was upset re: the bandages on his operative foot coming off. OTR assisted patient to re-wrap elastic bandage to cover gauze and per DIRECTOR CORPORATE SALES, Dr. Jackson will be in to see the patient later today. OTR reviewed transfer techniques with patient including DME recommendations for home setup including FWW, BSC, and toilet safety rails. OTR reviewed WB status with patient who verbalized understanding. Patient participated in BUE ther ex's with 2# resistance 2x20 including bidirectional rows, abduction, forward flexion, and horizontal ab/adduction with rest break as needed. Nursing arrived during middle of treatment session for med pass and break in treatment taken. Patient seated in wheelchair, smiling with call light and bedside table within reach at end of session. Will continue to see patient throughout duration of stay to facilitate improved functional strength and endurance, AE/AD/DME training, and I/ADL performance in order to facilitate improved functional performance in prep for next level of care. Initialized on 01/28/22 10:21 - END OF NOTE Assessment/Plan (1) Charcot arthropathy of midfoot Current Visit: Yes Status: Acute Assessment & Plan: Patient examination evaluation Radiographs reviewed and discussed with patient demonstrating planing of bones to the left foot with delayed primary closure. Debridement of wound to the plantar aspect of surgical extremity demonstrating postdebridement measurement of 6.0 x 2.0 x 1.0 at this time depth is what is concerning and maceration of the wound Failed out patient abx at this time growing psuedomonas. Continue Zosyn. No plans for bone biopsy as infection is acute and charcot deformity chronic. Will proceed with Biopsy if worsening of the wound despite antibiotic therapy. Patient defers correction facility placement for continued abx at this time. We will proceed with checking on if patient is candidate for home infusions. Patient lacks transportation and has difficulty with coordination with family. Will follow closely. Code(s): M14.679 - CHARCOT'S JOINT, UNSPECIFIED ANKLE AND FOOT (2) Falls frequently Current Visit: No Status: Acute Code(s): R29.6 - REPEATED FALLS (3) Diabetic ulcer of left foot Current Visit: No Status: Chronic Code(s): E11.621 - TYPE 2 DIABETES MELLITUS WITH FOOT ULCER; L97.529 - NON-PRESSURE CHRONIC ULCER OTH PRT LEFT FOOT W UNSP SEVERITY (4) Diabetes mellitus type 2, insulin dependent Current Visit: No Status: Chronic Code(s): E11.9 - TYPE 2 DIABETES MELLITUS WITHOUT COMPLICATIONS; Z79.4 - INTERMEDIATE (CURRENT) USE OF INSULIN (5) HTN (hypertension) Current Visit: No Status: Chronic Code(s): I10 - ESSENTIAL (PRIMARY) HYPERTENSION (6) CAD (coronary artery disease) Current Visit: No Status: Chronic Code(s): I25.10 - ATHSCL HEART DISEASE OF [place] CORONARY ARTERY W/O ANG PCTRS
[2022-01-28] MEDS: HUMALOG SQ PRN ×2 (17:11→21:49)
[2022-01-29 05:15] LABS: Basophil (Absolute #) 0.03 x10^3/uL (0-0.4); Eosinophil % 2.6 % (0.00-5.0); Eosinophil (Absolute #) 0.15 x10^3/uL (0-0.5); Hematocrit 33.3 % (42-50); Hemoglobin 10.6 g/dL (12.5-18.0); Lymphocyte (Absolute #) 2.14 x10^3/uL (1.0-4.6); Lymphocytes % 37.7 % (24.0-44.0); Mean Cell Volume 94.9 fL (78-100); Mean Corpuscular Hemoglobin 30.2 pg (26-32); Mean Corpuscular Hgb Concent. 31.8 g/dL (32-36); Mean Platelet Volume 8.8 fL (7.5-11.0); Monocyte (Absolute #) 0.64 x10^3/uL (0.0-1.3); Monocytes % 11.3 % (0.0-12.0); Neutrophil % 47.7 % (36.0-66.0); Platelet Count 248 x10^3/uL (150-450); Red Blood Count 3.51 x10^6/uL (4.1-5.6); Red Cell Distribution Width 13.8 % (11.5-14.0); White Blood Count 5.7 x10^3/uL (4.0-10.5)
[2022-01-29] MEDS: PIPERACILLIN/TAZOBACTAM 3.375 GM in Sodium Chloride 100ML MINI-BAG PLUS 100 ML IV SCH ×3 (06:15→21:07)
--- NOTE | 2022-01-29 07:44 | PCM.NOTE ---
Date and Time: 01/29/22 0743 Subjective Assessment: patient denies pain today, no new complaints Objective Exam General Appearance: no apparent distress Neurologic Exam: alert Wound Assessment: Skin/Wound Assessment Wound/Incision Assessment Start: 01/26/22 12:40 Text: Status: Active Freq: Q6H Protocol: Document 01/29/22 02:00 CB (Rec: 01/29/22 03:48 CB [id number]) Wound/Incision Assessment Left Lateral Volar Foot Wound Assessment Shift Assessment Wound Type diabetic ulcer Dressing Status Dry & Intact Drainage Amount None Comment Unable to assess wound itself; however, dressing is clean, dry, & intact. Respiratory Exam: normal breath sounds Cardiovascular Exam: regular rate/rhythm, normal heart sounds Gastrointestinal/Abdomen Exam: soft, No tenderness, No mass Extremity Exam: other (dressing intact to left foot) OBJECTIVE DATA Vital Signs: Vital Signs - 24 hr Temp Pulse Resp BP Pulse Ox 01/29/22 07:31 97.3 F 61 17 108/53 93 L 01/29/22 04:00 97.5 F 60 19 117/56 97 01/29/22 00:00 97.7 F 63 17 122/53 98 01/28/22 20:00 97.5 F 70 19 113/57 96 01/28/22 15:05 97.1 F 93 H 18 101/51 97 01/28/22 12:00 97.1 F 69 18 133/67 Pain Assessment - Last Documented Pain Intensity 0 Intake and Output: Intake & Output 01/26/22 01/27/22 01/28/22 01/29/22 11:59 11:59 11:59 11:59 Intake Total 1340 2140 1740 Output Total 3000 1550 1650 Balance -1660 590 90 Weight 117 kg 117 kg Lab Results: Lab Results-Last 24 Hours 01/28/22 01/28/22 01/28/22 Range/Units 11:23 16:08 20:46 WBC (4.0-10.5) x10^3/uL RBC (4.1-5.6) x10^6/uL Hgb (12.5-18.0) g/dL Hct (42-50) % MCV (78-100) fL MCH (26-32) pg MCHC (32-36) g/dL RDW (11.5-14.0) % Plt Count (150-450) x10^3/uL MPV (7.5-11.0) fL Gran % (36.0-66.0) % Immature Gran % (Auto) (0.00-0.4) % Nucleat RBC Rel Count (0.00-0.1) % Eos # (Auto) (0-0.5) x10^3/uL Immature Gran # (Auto) (0.00-0.03) x10^3u/L Absolute Lymphs (auto) (1.0-4.6) x10^3/uL Absolute Monos (auto) (0.0-1.3) x10^3/uL Absolute Nucleated RBC (0.00-0.01) x10^3u/L Lymphocytes % (24.0-44.0) % Monocytes % (0.0-12.0) % Eosinophils % (0.00-5.0) % Basophils % (0.0-0.4) % Absolute Granulocytes (1.4-6.9) x10^3/uL Basophils # (0-0.4) x10^3/uL POC Glucometer 161 H 226 H 273 H (74 to 106) mg/dL 01/29/22 01/29/22 Range/Units 04:00 07:16 WBC 5.7 (4.0-10.5) x10^3/uL RBC 3.51 L (4.1-5.6) x10^6/uL Hgb 10.6 L (12.5-18.0) g/dL Hct 33.3 L (42-50) % MCV 94.9 (78-100) fL MCH 30.2 (26-32) pg MCHC 31.8 L (32-36) g/dL RDW 13.8 (11.5-14.0) % Plt Count 248 (150-450) x10^3/uL MPV 8.8 (7.5-11.0) fL Gran % 47.7 (36.0-66.0) % Immature Gran % (Auto) 0.2 (0.00-0.4) % Nucleat RBC Rel Count 0.0 (0.00-0.1) % Eos # (Auto) 0.15 (0-0.5) x10^3/uL Immature Gran # (Auto) 0.01 (0.00-0.03) x10^3u/L Absolute Lymphs (auto) 2.14 (1.0-4.6) x10^3/uL Absolute Monos (auto) 0.64 (0.0-1.3) x10^3/uL Absolute Nucleated RBC 0.00 (0.00-0.01) x10^3u/L Lymphocytes % 37.7 (24.0-44.0) % Monocytes % 11.3 (0.0-12.0) % Eosinophils % 2.6 (0.00-5.0) % Basophils % 0.5 (0.0-0.4) % Absolute Granulocytes 2.70 (1.4-6.9) x10^3/uL Basophils # 0.03 (0-0.4) x10^3/uL POC Glucometer 43 L* (74 to 106) mg/dL Multi-Disciplinary Progress Notes: Multi-Disciplinary Progress Notes 01/28/22 19:17 Physical Therapy Note by Karyn(Kat#[id number])Angelina PT. WAS SEEN BY P.T. 01/27/22 P.M. REPORTS L FOOT PN AT 04/16. DRESSING APPLIED BY DR. SKYLAR HINES. PT. HAS REFUSED SNF PLACEMENT FOR REHAB AND IV ATB. PT. HAS KNEE SCOOTER, RW, AND W/C AT HOME. PT. IS TO NWB L LE TO PROMOTE WOUND HEALING. PT. PERFORMED BED MOBILITY MOD I. BED TO CHAIR TRANSFERS PERFORMED W/ CGA. O.T. TO MANAGE PT. AT THIS POINT TO ADDRESS TRANSFER TRAINING, UE STRENGTHENING, AND DME NEEDED FOR D/C. P.T. WILL MONITOR BUT DEFER TO O.T. AT THIS TIME. Initialized on 01/28/22 19:17 - END OF NOTE 01/28/22 15:49 Occupational Therapy Note by Latonia Stevenson OCCUPATIONAL THERAPY TREATMENT (15:20-15:45) PATIENT ENGAGES IN FUNCTIONAL TRANSFERS WITH STANDARD WALKER. PATIENT TRANSFERS WITH SBA AND APPROPRIATE AWARENESS TO WB PRECAUTIONS. PATIENT REPORTS THAT STANDING UP FELT GOOD AND RELIEF. PATIENT RETURNS TO SITTING AND ENGAGES IN UE HEP WITH GOOD RETURN DEMO. OT LOCATED AND PLACED RECLINER IN ROOM, AND LOCKED ON WHEELS BUT CONTINUES TO SWIVELS. PATIENT WITH STRICT INSTRUCTIONS ON CALLING NURSING STAFF TO ASSIST WITH TRANSFER. OT CONTACTED MAINTENANCE ABOUT CHAIR. Addendum entered and electronically signed by Latonia Stevenson OT 01/28/22 16:02: Your Work Order Reference ID is [id number] (for Maintenance) Initialized on 01/28/22 15:49 - END OF NOTE 01/28/22 10:21 Occupational Therapy Note by Itz(L#[id number])Lindsay Occupational Therapy Treatment Note [id number] Patient seated in wheelchair upon OTR approach. He reported that he was having a rough morning and was upset re: the bandages on his operative foot coming off. OTR assisted patient to re-wrap elastic bandage to cover gauze and per PROBATE JUDGE, Dr. Jackson will be in to see the patient later today. OTR reviewed transfer techniques with patient including DME recommendations for home setup including FWW, BSC, and toilet safety rails. OTR reviewed WB status with patient who verbalized understanding. Patient participated in BUE ther ex's with 2# resistance 2x20 including bidirectional rows, abduction, forward flexion, and horizontal ab/adduction with rest break as needed. Nursing arrived during middle of treatment session for med pass and break in treatment taken. Patient seated in wheelchair, smiling with call light and bedside table within reach at end of session. Will continue to see patient throughout duration of stay to facilitate improved functional strength and endurance, AE/AD/DME training, and I/ADL performance in order to facilitate improved functional performance in prep for next level of care. Initialized on 01/28/22 10:21 - END OF NOTE Assessment/Plan (1) Diabetic ulcer of left foot Current Visit: No Status: Chronic Assessment & Plan: on zosyn based on previous culture with pseudomonas, podiatry managing foot wound and disposition per his recommendation. Code(s): E11.621 - TYPE 2 DIABETES MELLITUS WITH FOOT ULCER; L97.529 - NON- PRESSURE CHRONIC ULCER OTH PRT LEFT FOOT W UNSP SEVERITY (2) Diabetes mellitus type 2, insulin dependent Current Visit: No Status: Chronic Code(s): E11.9 - TYPE 2 DIABETES MELLITUS WITHOUT COMPLICATIONS; Z79.4 - SALVAGE DETERMINER (CURRENT) USE OF INSULIN (3) CAD (coronary artery disease) Current Visit: No Status: Chronic Code(s): I25.10 - ATHSCL HEART DISEASE OF [place] CORONARY ARTERY W/O ANG PCTRS
[2022-01-29] MEDS: Tricor 145 MG PO SCH (10:33)
[2022-01-29] MEDS: ECOTRIN 81 MG PO SCH (10:33)
[2022-01-29] MEDS: NORVASC 5 MG PO SCH ×2 (10:33→21:07)
[2022-01-29] MEDS: ZOCOR 20MG PO SCH (10:34)
[2022-01-29] MEDS: Bystolic 5 MG PO SCH (10:34)
[2022-01-29] MEDS: Effexor XR 75 MG PO SCH ×2 (10:34→21:07)
[2022-01-29] MEDS: FOLTX (FOLBIC) PO SCH (10:35)
[2022-01-29] MEDS: ZYLOPRIM 100 MG PO SCH ×2 (10:35→21:07)
[2022-01-29] MEDS: Zetia 10 MG PO SCH (10:35)
[2022-01-29] MEDS: Dakin's Soln FULL STRENGTH TP SCH (10:37)
[2022-01-29] MEDS: Lantus Insulin SQ SCH (12:23)
[2022-01-29] MEDS: HUMALOG SQ PRN (21:07)
[2022-01-30 05:51] LABS: Absolute Neutrophil Ct (ANC) 3.54 x10^3/uL (1.4-6.9); Basophil (Absolute #) 0.03 x10^3/uL (0-0.4); Eosinophil % 2.5 % (0.00-5.0); Eosinophil (Absolute #) 0.15 x10^3/uL (0-0.5); Hematocrit 35.1 % (42-50); Lymphocyte (Absolute #) 1.79 x10^3/uL (1.0-4.6); Lymphocytes % 29.5 % (24.0-44.0); Mean Cell Volume 96.4 fL (78-100); Mean Corpuscular Hemoglobin 30.2 pg (26-32); Mean Corpuscular Hgb Concent. 31.3 g/dL (32-36); Mean Platelet Volume 8.5 fL (7.5-11.0); Monocyte (Absolute #) 0.55 x10^3/uL (0.0-1.3); Monocytes % 9.1 % (0.0-12.0); Neutrophil % 58.2 % (36.0-66.0); Platelet Count 250 x10^3/uL (150-450); Red Blood Count 3.64 x10^6/uL (4.1-5.6); Red Cell Distribution Width 13.7 % (11.5-14.0); White Blood Count 6.1 x10^3/uL (4.0-10.5)
[2022-01-30] MEDS: PIPERACILLIN/TAZOBACTAM 3.375 GM in Sodium Chloride 100ML MINI-BAG PLUS 100 ML IV SCH ×3 (05:59→21:22)
--- NOTE | 2022-01-30 09:09 | PCM.NOTE ---
Date and Time: 01/30/22 0908 Subjective Assessment: no new complaints. no pain, nursing notes some low fasting blood sugars Objective Exam General Appearance: no apparent distress Neurologic Exam: alert, oriented x 3 Wound Assessment: Skin/Wound Assessment Wound/Incision Assessment Start: 01/26/22 12:40 Text: Status: Active Freq: Q6H Protocol: Document 01/30/22 02:00 RN (Rec: 01/30/22 02:13 RN [id number]) Wound/Incision Assessment Left Lateral Volar Foot Wound Assessment Shift Assessment Wound Type diabetic ulcer Dressing Status Changed Drainage Amount None Comment dressing clean, dry, and intact---no change Wound Photo Photo Taken Yes Date: 01/26/22 Time: 11:00 Respiratory Exam: normal breath sounds, lungs clear, No respiratory distress Cardiovascular Exam: regular rate/rhythm, normal heart sounds Gastrointestinal/Abdomen Exam: soft, No tenderness, No mass Extremity Exam: other (left foot wound examined, mild drainage present, base more clean. wound otherwise unchanged) OBJECTIVE DATA Vital Signs: Vital Signs - 24 hr Temp Pulse Resp BP Pulse Ox 01/30/22 08:00 97.1 F 59 L 18 117/57 96 01/30/22 04:00 97.7 F 63 16 128/58 96 01/29/22 23:56 98.0 F 62 19 135/62 98 01/29/22 19:45 97.3 F 70 19 128/60 98 01/29/22 16:00 98.0 F 70 17 129/59 97 01/29/22 11:33 97.1 F 64 18 131/60 96 Pain Assessment - Last Documented Pain Intensity 0 Intake and Output: Intake & Output 01/27/22 01/28/22 01/29/22 01/30/22 11:59 11:59 11:59 11:59 Intake Total 1340 2140 2020 1207 Output Total 3000 1550 2150 2100 Balance -1660 590 -130 -893 Weight 117 kg 117 kg Lab Results: Lab Results-Last 24 Hours 01/29/22 01/29/22 01/29/22 Range/Units 11:25 16:34 20:20 WBC (4.0-10.5) x10^3/uL RBC (4.1-5.6) x10^6/uL Hgb (12.5-18.0) g/dL Hct (42-50) % MCV (78-100) fL MCH (26-32) pg MCHC (32-36) g/dL RDW (11.5-14.0) % Plt Count (150-450) x10^3/uL MPV (7.5-11.0) fL Gran % (36.0-66.0) % Immature Gran % (Auto) (0.00-0.4) % Nucleat RBC Rel Count (0.00-0.1) % Eos # (Auto) (0-0.5) x10^3/uL Immature Gran # (Auto) (0.00-0.03) x10^3u/L Absolute Lymphs (auto) (1.0-4.6) x10^3/uL Absolute Monos (auto) (0.0-1.3) x10^3/uL Absolute Nucleated RBC (0.00-0.01) x10^3u/L Lymphocytes % (24.0-44.0) % Monocytes % (0.0-12.0) % Eosinophils % (0.00-5.0) % Basophils % (0.0-0.4) % Absolute Granulocytes (1.4-6.9) x10^3/uL Basophils # (0-0.4) x10^3/uL POC Glucometer 145 H 244 H 342 H (74 to 106) mg/dL 01/30/22 01/30/22 Range/Units 05:22 07:09 WBC 6.1 (4.0-10.5) x10^3/uL RBC 3.64 L (4.1-5.6) x10^6/uL Hgb 11.0 L (12.5-18.0) g/dL Hct 35.1 L (42-50) % MCV 96.4 (78-100) fL MCH 30.2 (26-32) pg MCHC 31.3 L (32-36) g/dL RDW 13.7 (11.5-14.0) % Plt Count 250 (150-450) x10^3/uL MPV 8.5 (7.5-11.0) fL Gran % 58.2 (36.0-66.0) % Immature Gran % (Auto) 0.2 (0.00-0.4) % Nucleat RBC Rel Count 0.0 (0.00-0.1) % Eos # (Auto) 0.15 (0-0.5) x10^3/uL Immature Gran # (Auto) 0.01 (0.00-0.03) x10^3u/L Absolute Lymphs (auto) 1.79 (1.0-4.6) x10^3/uL Absolute Monos (auto) 0.55 (0.0-1.3) x10^3/uL Absolute Nucleated RBC 0.00 (0.00-0.01) x10^3u/L Lymphocytes % 29.5 (24.0-44.0) % Monocytes % 9.1 (0.0-12.0) % Eosinophils % 2.5 (0.00-5.0) % Basophils % 0.5 (0.0-0.4) % Absolute Granulocytes 3.54 (1.4-6.9) x10^3/uL Basophils # 0.03 (0-0.4) x10^3/uL POC Glucometer 168 H (74 to 106) mg/dL Multi-Disciplinary Progress Notes: Multi-Disciplinary Progress Notes 01/29/22 13:44 Occupational Therapy Note by Latonia Stevenson PATIENT SEEN FROM 09:15-09:55 THIS DATE. HE COMPLETES MULTIPLE FUNCTIONAL TRANSFERS WITH STANDARD WALKER WITH POOR SAFETY INSIGHT AND DISREGARDS THERAPY RECOMMENDATIONS. PATIENT STATES "I KNOW HOW YOU THERAPIST THINK, BUT I'M JUST FINE THIS WAY". PATIENT PREFERS TRANSFER TO W/C WITHOUT DEVICE, BUT DEMO FATIGUE WITH TRANSFER TRAINING. PATIENT DOES ADMIT MUSCLE FATIGUE THIS DATE. PATIENT COMPLETES UE STRENGTHENING WITH 1# DB IN EACH HAND WHILE SEATED IN W/C; TOLERATES WELL. PATIENT THEN MANAGES W/C IND AND COMPLETES ADLS AT SINK. EDUCATION PROVIDED ON A/E RECOMMENDATIONS: RAISED TOILET SEAT WITH HAND RAILS AND GRAB BARS FOR BATHROOM. HE PLANS TO DISCUSS WITH FAMILY. FURTHER EDUCATION PROVIDED ON COMPLETING UE EXERCISE HEP 1X/DAY THROUGHOUT THE WEEKEND. Initialized on 01/29/22 13:44 - END OF NOTE 01/29/22 12:27 Case Management Note by Soraya Rodriguez ORDERS FOR CEFIPIME AT HOME SENT VIA FAX TO [facility]- WILL CHECK ON STATUS ON 02/01 Initialized on 01/29/22 12:27 - END OF NOTE 01/29/22 10:01 Case Management Note by Soraya Rodriguez S/W SKYLAR'S NURSE- PLANS FOR PATIENT TO STAY THRU THE WEEKEND. CULTURE STILL PENDING AT THIS TIME. PATIENT WILL NEED HOME INFUSIONS SET AT TIME OF DC HE IS REFUSING TO GO TO REHAB Initialized on 01/29/22 10:01 - END OF NOTE Assessment/Plan (1) Diabetic ulcer of left foot Current Visit: No Status: Chronic Assessment & Plan: on zosyn based on wound culture Code(s): E11.621 - TYPE 2 DIABETES MELLITUS WITH FOOT ULCER; L97.529 - NON-PRESSURE CHRONIC ULCER OTH PRT LEFT FOOT W UNSP SEVERITY (2) Diabetes mellitus type 2, insulin dependent Current Visit: No Status: Chronic Assessment & Plan: reduce lantus due to am hypoglycemia Code(s): E11.9 - TYPE 2 DIABETES MELLITUS WITHOUT COMPLICATIONS; Z79.4 - LABOR RELATIONS CONSULTANT (CURRENT) USE OF INSULIN (3) CAD (coronary artery disease) Current Visit: No Status: Chronic Code(s): I25.10 - ATHSCL HEART DISEASE OF [place] CORONARY ARTERY W/O ANG PCTRS
[2022-01-30] MEDS: Zetia 10 MG PO SCH (10:13)
[2022-01-30] MEDS: ECOTRIN 81 MG PO SCH (10:13)
[2022-01-30] MEDS: Bystolic 5 MG PO SCH (10:13)
[2022-01-30] MEDS: Effexor XR 75 MG PO SCH ×2 (10:14→21:23)
[2022-01-30] MEDS: NORVASC 5 MG PO SCH ×2 (10:14→21:23)
[2022-01-30] MEDS: Tricor 145 MG PO SCH (10:14)
[2022-01-30] MEDS: FOLTX (FOLBIC) PO SCH (10:15)
[2022-01-30] MEDS: ZOCOR 20MG PO SCH (10:15)
[2022-01-30] MEDS: ZYLOPRIM 100 MG PO SCH ×2 (10:15→21:23)
[2022-01-30] MEDS: Lantus Insulin SQ SCH (10:15)
[2022-01-30] MEDS: Dakin's Soln FULL STRENGTH TP SCH (10:16)
[2022-01-30] MEDS: HUMALOG SQ PRN (21:21)
[2022-01-31 05:00] LABS: Absolute Neutrophil Ct (ANC) 3.77 x10^3/uL (1.4-6.9); Basophil (Absolute #) 0.04 x10^3/uL (0-0.4); Eosinophil % 2.2 % (0.00-5.0); Eosinophil (Absolute #) 0.15 x10^3/uL (0-0.5); Hematocrit 33.6 % (42-50); Hemoglobin 10.3 g/dL (12.5-18.0); Lymphocyte (Absolute #) 2.17 x10^3/uL (1.0-4.6); Lymphocytes % 32.4 % (24.0-44.0); Mean Cell Volume 96.6 fL (78-100); Mean Corpuscular Hemoglobin 29.6 pg (26-32); Mean Corpuscular Hgb Concent. 30.7 g/dL (32-36); Mean Platelet Volume 8.4 fL (7.5-11.0); Monocyte (Absolute #) 0.56 x10^3/uL (0.0-1.3); Monocytes % 8.4 % (0.0-12.0); Neutrophil % 56.3 % (36.0-66.0); Platelet Count 233 x10^3/uL (150-450); Red Blood Count 3.48 x10^6/uL (4.1-5.6); Red Cell Distribution Width 13.5 % (11.5-14.0); White Blood Count 6.7 x10^3/uL (4.0-10.5)
[2022-01-31 05:17] LABS: ANION GAP 7.3 MEQ/L (5-15); BLOOD UREA NITROGEN 28 mg/dL (9-20); CHLORIDE 106 mmol/L (98-107); Calcium 8.5 mg/dL (8.4-10.2); Carbon Dioxide 27 mmol/L (22-30); Creatinine 1 1.19 mg/dL (0.66-1.25); EST GLOMERULAR FILTRATION RATE > 60.0 ML/MIN; Glucose 104 mg/dL (74-106); Potassium 3.9 mmol/L (3.5-5.1); SODIUM 136 mmol/L (137-145)
[2022-01-31] MEDS: PIPERACILLIN/TAZOBACTAM 3.375 GM in Sodium Chloride 100ML MINI-BAG PLUS 100 ML IV SCH ×3 (05:21→21:16)
[2022-01-31] MEDS: Dakin's Soln FULL STRENGTH TP SCH (10:59)
[2022-01-31] MEDS: Bystolic 5 MG PO SCH (10:59)
[2022-01-31] MEDS: ECOTRIN 81 MG PO SCH (11:00)
[2022-01-31] MEDS: Effexor XR 75 MG PO SCH ×2 (11:00→21:16)
[2022-01-31] MEDS: FOLTX (FOLBIC) PO SCH (11:01)
[2022-01-31] MEDS: NORVASC 5 MG PO SCH ×2 (11:02→21:17)
[2022-01-31] MEDS: Tricor 145 MG PO SCH (11:02)
[2022-01-31] MEDS: Lantus Insulin SQ SCH (11:02)
[2022-01-31] MEDS: ZOCOR 20MG PO SCH (11:04)
[2022-01-31] MEDS: ZYLOPRIM 100 MG PO SCH ×2 (11:04→21:17)
[2022-01-31] MEDS: Zetia 10 MG PO SCH (11:05)
[2022-01-31] MEDS: HUMALOG SQ PRN (16:53)
[2022-02-01 05:19] LABS: Absolute Neutrophil Ct (ANC) 5.37 x10^3/uL (1.4-6.9); Basophil (Absolute #) 0.04 x10^3/uL (0-0.4); Eosinophil % 1.6 % (0.00-5.0); Eosinophil (Absolute #) 0.12 x10^3/uL (0-0.5); Hematocrit 36.1 % (42-50); Hemoglobin 11.2 g/dL (12.5-18.0); Lymphocyte (Absolute #) 1.32 x10^3/uL (1.0-4.6); Lymphocytes % 17.6 % (24.0-44.0); Mean Cell Volume 96.8 fL (78-100); Mean Platelet Volume 8.6 fL (7.5-11.0); Monocyte (Absolute #) 0.63 x10^3/uL (0.0-1.3); Monocytes % 8.4 % (0.0-12.0); Neutrophil % 71.6 % (36.0-66.0); Platelet Count 251 x10^3/uL (150-450); Red Blood Count 3.73 x10^6/uL (4.1-5.6); Red Cell Distribution Width 13.4 % (11.5-14.0); White Blood Count 7.5 x10^3/uL (4.0-10.5)
[2022-02-01 05:41] LABS: ANION GAP 8.8 MEQ/L (5-15); BLOOD UREA NITROGEN 26 mg/dL (9-20); CHLORIDE 104 mmol/L (98-107); Carbon Dioxide 26 mmol/L (22-30); Creatinine 1 1.23 mg/dL (0.66-1.25); EST GLOMERULAR FILTRATION RATE > 60.0 ML/MIN; Glucose 108 mg/dL (74-106); Potassium 3.8 mmol/L (3.5-5.1); SODIUM 135 mmol/L (137-145)
[2022-02-01] MEDS: PIPERACILLIN/TAZOBACTAM 3.375 GM in Sodium Chloride 100ML MINI-BAG PLUS 100 ML IV SCH ×3 (05:42→22:22)
[2022-02-01] MEDS: Zetia 10 MG PO SCH (10:17)
[2022-02-01] MEDS: Bystolic 5 MG PO SCH (10:17)
[2022-02-01] MEDS: ZYLOPRIM 100 MG PO SCH ×2 (10:17→22:15)
[2022-02-01] MEDS: ECOTRIN 81 MG PO SCH (10:17)
[2022-02-01] MEDS: Tricor 145 MG PO SCH (10:18)
[2022-02-01] MEDS: NORVASC 5 MG PO SCH ×2 (10:18→22:15)
[2022-02-01] MEDS: ZOCOR 20MG PO SCH (10:18)
[2022-02-01] MEDS: Effexor XR 75 MG PO SCH ×2 (10:19→22:15)
[2022-02-01] MEDS: Dakin's Soln FULL STRENGTH TP SCH (10:19)
[2022-02-01] MEDS: FOLTX (FOLBIC) PO SCH (10:19)
--- NOTE | 2022-02-01 13:10 | PCM.NOTE ---
Date and Time: 02/01/22 1309 Subjective Assessment: Nurse reports sugar drops at night, down to 34 at 3AM . Lantus had been reduced but will d/c Lantus and continue sliding scale. Patient states hi sugars have dropped low at night for a long time. Patient c/o diarrhea, states "IBS flare up". Is on Zosyn for diabetic foot ulcer x6 days now,need to R/O c,diff Objective Exam General Appearance: no apparent distress Neurologic Exam: alert, oriented x 3, cooperative, normal mood/affect Skin Exam: normal color, warm, dry Wound Assessment: Skin/Wound Assessment Wound/Incision Assessment Start: 01/26/22 12:40 Text: Status: Active Freq: Q6H Protocol: Document 02/01/22 08:00 CAILIN (Rec: 02/01/22 08:37 [email or web address] [id number]) Wound/Incision Assessment Left Lateral Volar Foot Wound Assessment Shift Assessment Wound Type diabetic ulcer Dressing Status Dry & Intact Drainage Amount None Comment dressing clean, dry, and intact Wound Photo Photo Taken Yes Date: 01/26/22 Time: 11:00 Respiratory Exam: normal breath sounds Cardiovascular Exam: regular rate/rhythm Gastrointestinal/Abdomen Exam: soft (decreased BS), No tenderness Extremity Exam: other (left foot dressing dry pink warm) OBJECTIVE DATA Vital Signs: Vital Signs - 24 hr Temp Pulse Resp BP BP Pulse Ox 02/01/22 11:38 98.2 F 58 L 18 166/73 100 02/01/22 07:17 98.7 F 61 18 135/62 96 02/01/22 04:00 98.6 F 66 18 128/62 93 L 01/31/22 23:40 97.8 F 56 L 18 152/69 96 01/31/22 19:55 98.9 F 62 20 138/64 96 01/31/22 16:00 98.4 F 65 16 124/60 97 Pain Assessment - Last Documented Pain Intensity 0 Intake and Output: Intake & Output 01/30/22 01/31/22 02/01/22 02/02/22 11:59 11:59 11:59 11:59 Intake Total 1207 2240 3380 Output Total 2100 2250 950 550 Balance -893 -10 4100 -873 Lab Results: Lab Results-Last 24 Hours 01/31/22 01/31/22 02/01/22 Range/Units 16:40 21:03 03:14 WBC (4.0-10.5) x10^3/uL RBC (4.1-5.6) x10^6/uL Hgb (12.5-18.0) g/dL Hct (42-50) % MCV (78-100) fL MCH (26-32) pg MCHC (32-36) g/dL RDW (11.5-14.0) % Plt Count (150-450) x10^3/uL MPV (7.5-11.0) fL Gran % (36.0-66.0) % Immature Gran % (Auto) (0.00-0.4) % Nucleat RBC Rel Count (0.00-0.1) % Eos # (Auto) (0-0.5) x10^3/uL Immature Gran # (Auto) (0.00-0.03) x10^3u/L Absolute Lymphs (auto) (1.0-4.6) x10^3/uL Absolute Monos (auto) (0.0-1.3) x10^3/uL Absolute Nucleated RBC (0.00-0.01) x10^3u/L Lymphocytes % (24.0-44.0) % Monocytes % (0.0-12.0) % Eosinophils % (0.00-5.0) % Basophils % (0.0-0.4) % Absolute Granulocytes (1.4-6.9) x10^3/uL Basophils # (0-0.4) x10^3/uL Sodium (137-145) mmol/L Potassium (3.5-5.1) mmol/L Chloride (98-107) mmol/L Carbon Dioxide (22-30) mmol/L Anion Gap (5-15) MEQ/L BUN (9-20) mg/dL Creatinine (0.66-1.25) mg/dL Estimated GFR ML/MIN Glucose (74-106) mg/dL POC Glucometer 259 H 152 H 34 L* (74 to 106) mg/dL Calcium (8.4-10.2) mg/dL 02/01/22 02/01/22 02/01/22 Range/Units 04:20 04:20 06:56 WBC 7.5 (4.0-10.5) x10^3/uL RBC 3.73 L (4.1-5.6) x10^6/uL Hgb 11.2 L (12.5-18.0) g/dL Hct 36.1 L (42-50) % MCV 96.8 (78-100) fL MCH 30.0 (26-32) pg MCHC 31.0 L (32-36) g/dL RDW 13.4 (11.5-14.0) % Plt Count 251 (150-450) x10^3/uL MPV 8.6 (7.5-11.0) fL Gran % 71.6 H (36.0-66.0) % Immature Gran % (Auto) 0.3 (0.00-0.4) % Nucleat RBC Rel Count 0.0 (0.00-0.1) % Eos # (Auto) 0.12 (0-0.5) x10^3/uL Immature Gran # (Auto) 0.02 (0.00-0.03) x10^3u/L Absolute Lymphs (auto) 1.32 (1.0-4.6) x10^3/uL Absolute Monos (auto) 0.63 (0.0-1.3) x10^3/uL Absolute Nucleated RBC 0.00 (0.00-0.01) x10^3u/L Lymphocytes % 17.6 L (24.0-44.0) % Monocytes % 8.4 (0.0-12.0) % Eosinophils % 1.6 (0.00-5.0) % Basophils % 0.5 (0.0-0.4) % Absolute Granulocytes 5.37 (1.4-6.9) x10^3/uL Basophils # 0.04 (0-0.4) x10^3/uL Sodium 135 L (137-145) mmol/L Potassium 3.8 (3.5-5.1) mmol/L Chloride 104 (98-107) mmol/L Carbon Dioxide 26 (22-30) mmol/L Anion Gap 8.8 (5-15) MEQ/L BUN 26 H (9-20) mg/dL Creatinine 1.23 (0.66-1.25) mg/dL Estimated GFR > 60.0 ML/MIN Glucose 108 H (74-106) mg/dL POC Glucometer 108 H (74 to 106) mg/dL Calcium 9.0 (8.4-10.2) mg/dL 02/01/22 Range/Units 11:28 WBC (4.0-10.5) x10^3/uL RBC (4.1-5.6) x10^6/uL Hgb (12.5-18.0) g/dL Hct (42-50) % MCV (78-100) fL MCH (26-32) pg MCHC (32-36) g/dL RDW (11.5-14.0) % Plt Count (150-450) x10^3/uL MPV (7.5-11.0) fL Gran % (36.0-66.0) % Immature Gran % (Auto) (0.00-0.4) % Nucleat RBC Rel Count (0.00-0.1) % Eos # (Auto) (0-0.5) x10^3/uL Immature Gran # (Auto) (0.00-0.03) x10^3u/L Absolute Lymphs (auto) (1.0-4.6) x10^3/uL Absolute Monos (auto) (0.0-1.3) x10^3/uL Absolute Nucleated RBC (0.00-0.01) x10^3u/L Lymphocytes % (24.0-44.0) % Monocytes % (0.0-12.0) % Eosinophils % (0.00-5.0) % Basophils % (0.0-0.4) % Absolute Granulocytes (1.4-6.9) x10^3/uL Basophils # (0-0.4) x10^3/uL Sodium (137-145) mmol/L Potassium (3.5-5.1) mmol/L Chloride (98-107) mmol/L Carbon Dioxide (22-30) mmol/L Anion Gap (5-15) MEQ/L BUN (9-20) mg/dL Creatinine (0.66-1.25) mg/dL Estimated GFR ML/MIN Glucose (74-106) mg/dL POC Glucometer 108 H (74 to 106) mg/dL Calcium (8.4-10.2) mg/dL Multi-Disciplinary Progress Notes: Multi-Disciplinary Progress Notes 02/01/22 11:28 Case Management Note by Soraya Rodriguez S/Marianna DENSON AT [facility]- THEY RECEIVED REFERRAL FOR MEDS. MEDS ARE READY AND PAID FOR AT 100%. THEY CAN DO SAME DAY DELIVER BUT REQUEST NOTIFICATION BEFORE 3PM WILL NEED TO SET UP C. PATIENT REQUESTING [facility]. REFERRAL FAXED BUT THEY ARE NOT OPEN TODAY. WILL CALL TOMORROW TO MAKE MORE SPECIFIC ARRANGEMENTS Initialized on 02/01/22 11:28 - END OF NOTE Assessment/Plan (1) Diabetic foot infection Current Visit: Yes Status: Chronic Assessment & Plan: Pseudomonas per culture continue Zosyn ,[facility] Guille Wilson . 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 Code(s): E11.649 - TYPE 2 DIABETES MELLITUS WITH HYPOGLYCEMIA WITHOUT COMA (3) Diarrhea Current Visit: Yes Status: Acute Assessment & Plan: test for c.diff Code(s): R19.7 - DIARRHEA, UNSPECIFIED (4) IBS (irritable bowel syndrome) Current Visit: Yes Status: Chronic Qualifiers: Irritable bowel syndrome type: with diarrhea Qualified Code(s): K58.0 - Irritable bowel syndrome with diarrhea Assessment & Plan: uses Librax at home,Rx Levsin for now-prn
[2022-02-01] MEDS ORDERED: ANASPAZ 0.125 MG PO PRN (14:27)
[2022-02-02] MEDS: PIPERACILLIN/TAZOBACTAM 3.375 GM in Sodium Chloride 100ML MINI-BAG PLUS 100 ML IV SCH ×3 (05:15→21:10)
[2022-02-02 05:41] LABS: Absolute Neutrophil Ct (ANC) 3.15 x10^3/uL (1.4-6.9); Basophil (Absolute #) 0.03 x10^3/uL (0-0.4); Eosinophil % 3.3 % (0.00-5.0); Hemoglobin 10.7 g/dL (12.5-18.0); Lymphocyte (Absolute #) 1.97 x10^3/uL (1.0-4.6); Lymphocytes % 32.6 % (24.0-44.0); Mean Cell Volume 96.9 fL (78-100); Mean Corpuscular Hemoglobin 30.5 pg (26-32); Mean Corpuscular Hgb Concent. 31.5 g/dL (32-36); Mean Platelet Volume 8.6 fL (7.5-11.0); Monocyte (Absolute #) 0.68 x10^3/uL (0.0-1.3); Monocytes % 11.3 % (0.0-12.0); Neutrophil % 52.1 % (36.0-66.0); Platelet Count 217 x10^3/uL (150-450); Red Blood Count 3.51 x10^6/uL (4.1-5.6); Red Cell Distribution Width 13.8 % (11.5-14.0)
[2022-02-02 06:13] LABS: ANION GAP 8.3 MEQ/L (5-15); BLOOD UREA NITROGEN 27 mg/dL (9-20); CHLORIDE 105 mmol/L (98-107); Calcium 8.8 mg/dL (8.4-10.2); Carbon Dioxide 26 mmol/L (22-30); Creatinine 1 1.21 mg/dL (0.66-1.25); EST GLOMERULAR FILTRATION RATE > 60.0 ML/MIN; Glucose 171 mg/dL (74-106); Potassium 3.9 mmol/L (3.5-5.1); SODIUM 136 mmol/L (137-145)
--- NOTE | 2022-02-02 08:07 | PCM.NOTE ---
Date and Time: 02/02/22803 Subjective Assessment: Patient resting comfortably in bed this AM. No subjective complaints. Recent Diarrhea likely abx related. reports of hypoglycemia. No other complaints at this time Physical Exam - Narrative Narrative Physical Exam: Podiatry Physical Exam Vascular: DP pulse is palable and PT pulses non- palpable b/l. CFT <5 seconds b/l. Skin temperature warm to cool from the proximal tibial tuberosity to distal toes b/l. Diminished pedal hair growth b/l. Varicosities noted to lower legs b/l. No cellulitis, proximal streaking or lymphangitis noted. No significant edema noted. No lymphadenopathy on palpation of the popliteal and inguinal lymph nodes b/l. Neurological: Protective sensation diminished 0/10 on the right and 0/10 on the left as indicated with Crandall-Jose 5.07 monofilament b/l. Vibratory sensation is diminished at 0/20. Patellar and achilles reflexes are brisk. Lower extremity temperature sensation diminished b/l. Dermatological: Trophic changes to the skin. Skin is xerotic and scaly in nature. Turgor is rigid. signficant maceration noted to the surgical site. Webspaces are clean, dry and intact b/l. Musculoskeletal: Strength intact for all muscle groups to the bilateral lower extremity. Classic rocker-bottom deformity to left lower extremity indicated by the Charcot with a plantarflexed cuboid bone of the left foot. Right foot is rectus. Amputation of hallux to the left foot evidence of intrinsic muscle atrophy as indicated with digital contractures 2 through 5 which are rigid in nature. Restricted range of motion to almost all joints to the left foot with a dorsiflexor he range of motion limitation with the knee extended however when the knee is flexed there is an increase in range of motion indicating a gastrocnemius equinus. There is normal range of motion to all pedal joints on the right foot with a dorsiflexor limitation with the knee extended however when the knee is flexed there is an increase in the range of motion indicating a gastrocnemius equinus here as well. Negative pain on palpation of any other prominences. There is a classic rocker-bottom deformity to the left foot with the cuboid at the lowest position. Normal gait and ky nonantalgic however waddling. Patient ambulating in a pair of custom made inserts with slip on loafers wound measuring 3.4 x 1.1 x 0.5. Imagin views left foot demonstrating significantly plantarflexed talus with a Charcot dissolution at the Lisfranc's joint. Partial amputation of the first ray in conjunction with the first toe. Subluxation of the second metatarsophalangeal joint dorsally os trigonum otherwise normal soft tissue planes. Cuboid subluxed plantarly no other soft tissue or osseous abnormalities identified Right ankle 3 views weightbearing demonstrating normal soft tissue planes. No indications of subluxation mild periarticular osteophytes noted ankle mortise intact subtalar joint without incongruency's. No other soft tissue or osseous abnormalities identified. OBJECTIVE DATA Vital Signs: Vital Signs - 24 hr Temp Pulse Resp BP Pulse Ox 02/02/22 07:31 98.7 F 59 L 18 158/63 97 02/02/22 04:00 98.0 F 58 L 18 139/63 96 02/01/22 22:36 71 16 153/69 96 02/01/22 19:38 97.5 F 75 17 134/63 94 L 02/01/22 16:00 98.2 F 75 16 137/60 99 02/01/22 11:38 98.2 F 58 L 18 166/73 100 Pain Assessment - Last Documented Pain Intensity 0 Intake and Output: Intake & Output 01/30/22 01/31/22 02/01/22 02/02/22 11:59 11:59 11:59 11:59 Intake Total 1207 2240 3380 960 Output Total 2100 2250 950 1650 [facility]893 -10 7408 -638 Lab Results: Lab Results-Last 24 Hours 02/01/22 02/01/22 02/01/22 Range/Units 11:28 16:30 21:23 WBC (4.0-10.5) x10^3/uL RBC (4.1-5.6) x10^6/uL Hgb (12.5-18.0) g/dL Hct (42-50) % MCV (78-100) fL MCH (26-32) pg MCHC (32-36) g/dL RDW (11.5-14.0) % Plt Count (150-450) x10^3/uL MPV (7.5-11.0) fL Gran % (36.0-66.0) % Immature Gran % (Auto) (0.00-0.4) % Nucleat RBC Rel Count (0.00-0.1) % Eos # (Auto) (0-0.5) x10^3/uL Immature Gran # (Auto) (0.00-0.03) x10^3u/L Absolute Lymphs (auto) (1.0-4.6) x10^3/uL Absolute Monos (auto) (0.0-1.3) x10^3/uL Absolute Nucleated RBC (0.00-0.01) x10^3u/L Lymphocytes % (24.0-44.0) % Monocytes % (0.0-12.0) % Eosinophils % (0.00-5.0) % Basophils % (0.0-0.4) % Absolute Granulocytes (1.4-6.9) x10^3/uL Basophils # (0-0.4) x10^3/uL Sodium (137-145) mmol/L Potassium (3.5-5.1) mmol/L Chloride (98-107) mmol/L Carbon Dioxide (22-30) mmol/L Anion Gap (5-15) MEQ/L BUN (9-20) mg/dL Creatinine (0.66-1.25) mg/dL Estimated GFR ML/MIN Glucose (74-106) mg/dL POC Glucometer 108 H 203 H 276 H (74 to 106) mg/dL Calcium (8.4-10.2) mg/dL 02/02/22 02/02/22 02/02/22 Range/Units 04:40 04:40 07:11 WBC 6.0 (4.0-10.5) x10^3/uL RBC 3.51 L (4.1-5.6) x10^6/uL Hgb 10.7 L (12.5-18.0) g/dL Hct 34.0 L (42-50) % MCV 96.9 (78-100) fL MCH 30.5 (26-32) pg MCHC 31.5 L (32-36) g/dL RDW 13.8 (11.5-14.0) % Plt Count 217 (150-450) x10^3/uL MPV 8.6 (7.5-11.0) fL Gran % 52.1 (36.0-66.0) % Immature Gran % (Auto) 0.2 (0.00-0.4) % Nucleat RBC Rel Count 0.0 (0.00-0.1) % Eos # (Auto) 0.20 (0-0.5) x10^3/uL Immature Gran # (Auto) 0.01 (0.00-0.03) x10^3u/L Absolute Lymphs (auto) 1.97 (1.0-4.6) x10^3/uL Absolute Monos (auto) 0.68 (0.0-1.3) x10^3/uL Absolute Nucleated RBC 0.00 (0.00-0.01) x10^3u/L Lymphocytes % 32.6 (24.0-44.0) % Monocytes % 11.3 (0.0-12.0) % Eosinophils % 3.3 (0.00-5.0) % Basophils % 0.5 (0.0-0.4) % Absolute Granulocytes 3.15 (1.4-6.9) x10^3/uL Basophils # 0.03 (0-0.4) x10^3/uL Sodium 136 L (137-145) mmol/L Potassium 3.9 (3.5-5.1) mmol/L Chloride 105 (98-107) mmol/L Carbon Dioxide 26 (22-30) mmol/L Anion Gap 8.3 (5-15) MEQ/L BUN 27 H (9-20) mg/dL Creatinine 1.21 (0.66-1.25) mg/dL Estimated GFR > 60.0 ML/MIN Glucose 171 H (74-106) mg/dL POC Glucometer 154 H (74 to 106) mg/dL Calcium 8.8 (8.4-10.2) mg/dL Multi-Disciplinary Progress Notes: Multi-Disciplinary Progress Notes 02/01/22 14:44 Physical Therapy Note by Mitesh(#[id number],Joseph Pt refused PT citing GI distress. Pt notes that he has severe IBS and just wanted to rest. Initialized on 02/01/22 14:44 - END OF NOTE 02/01/22 11:28 Case Management Note by Soraya Rodriguez S/W JARETT AT [facility]- THEY RECEIVED REFERRAL FOR MEDS. MEDS ARE READY AND PAID FOR AT 100%. THEY CAN DO SAME DAY DELIVER BUT REQUEST NOTIFICATION BEFORE 3PM WILL NEED TO SET UP HHC. [facility]AL FAXED BUT THEY ARE NOT OPEN TODAY. WILL CALL TOMORROW TO MAKE MORE SPECIFIC ARRANGEMENTS Initialized on 02/01/22 11:28 - END OF NOTE Assessment/Plan (1) Charcot arthropathy of midfoot Current Visit: Yes Status: Acute Assessment & Plan: Patient examination evaluation Radiographs reviewed and discussed with patient demonstrating planing of bones to the left foot with delayed primary closure. Debridement of wound to the plantar aspect of surgical extremity demonstrating postdebridement measurement of 3.6 x 1.1 x 0.5 at this time significant improvement of wound at this time. Failed out patient abx at this time growing psuedomonas. d/c w/ PICC line and abx Cefipime 2g q 12h. kidney function to be checked every other day. If Creatinine drops below 30 2g q24h. Home [facility] care MWF for dressing changes. Saline wet to dry with dakins washes. Patient defers [facility] facility placement for continued abx at this time. Ok for d/c if medicine clears for discharge. Code(s): M14.679 - CHARCOT'S JOINT, UNSPECIFIED ANKLE AND FOOT (2) Falls frequently Current Visit: No Status: Acute Code(s): R29.6 - REPEATED FALLS (3) Diabetic ulcer of left foot Current Visit: No Status: Chronic Code(s): E11.621 - TYPE 2 DIABETES MELLITUS WITH FOOT ULCER; L97.529 - NON-PRESSURE CHRONIC ULCER OTH PRT LEFT FOOT W UNSP SEVERITY (4) Diabetes mellitus type 2, insulin dependent Current Visit: No Status: Chronic Code(s): E11.9 - TYPE 2 DIABETES MELLITUS WITHOUT COMPLICATIONS; Z79.4 - CHIEF SAFETY OFFICER (CURRENT) USE OF INSULIN (5) HTN (hypertension) Current Visit: No Status: Chronic Code(s): I10 - ESSENTIAL (PRIMARY) HYPERTENSION (6) CAD (coronary artery disease) Current Visit: No Status: Chronic Code(s): I25.10 - ATHSCL HEART DISEASE OF [place] CORONARY ARTERY W/O ANG PCTRS
[2022-02-02] MEDS: ZYLOPRIM 100 MG PO SCH ×2 (08:38→21:10)
[2022-02-02] MEDS: Tricor 145 MG PO SCH (08:39)
[2022-02-02] MEDS: Effexor XR 75 MG PO SCH ×2 (08:42→21:09)
[2022-02-02] MEDS: Bystolic 5 MG PO SCH (08:42)
[2022-02-02] MEDS: ZOCOR 20MG PO SCH (08:42)
[2022-02-02] MEDS: ECOTRIN 81 MG PO SCH (08:42)
[2022-02-02] MEDS: Zetia 10 MG PO SCH (08:42)
[2022-02-02] MEDS: NORVASC 5 MG PO SCH ×2 (08:42→21:09)
[2022-02-02] MEDS: FOLTX (FOLBIC) PO SCH (08:43)
[2022-02-02] MEDS: Dakin's Soln FULL STRENGTH TP SCH (08:43)
[2022-02-02] MEDS: HUMALOG SQ PRN ×2 (12:45→18:04)
--- NOTE | 2022-02-02 17:00 | PCM.NOTE ---
Date and Time: 02/02/22 1655 Subjective Assessment: Dr Saunders note and plan for discharge tomorrow on home IV antibiotics appreciated. Dosing or basal insulin adjusted. Lantus was held yesterday due to sugar in the 30s yesterday 3am. Adjusted Lantus down to 50 from 100 starting this evening. Will continue low dose Humalog sliding scale. Objective Exam General Appearance: no apparent distress Neurologic Exam: alert, oriented x 3, cooperative, normal mood/affect (see Dr Saunders note) Wound Assessment: Skin/Wound Assessment Wound/Incision Assessment Start: 01/26/22 12:40 Text: Status: Active Freq: Q6H Protocol: Document 02/02/22 14:00 (Rec: 02/02/22 14:25 [id number]) Wound/Incision Assessment Left Lateral Volar Foot Wound Assessment Shift Assessment Wound Type diabetic ulcer Dressing Status Dry & Intact Drainage Amount None Comment DRESSING CDI - CHANGED THIS AM PER DR CHENG OFFICE OBJECTIVE DATA Vital Signs: Vital Signs - 24 hr Temp Pulse Resp BP Pulse Ox 02/02/22 16:00 98.6 F 69 17 137/64 97 02/02/22 11:28 98.4 F 78 17 112/56 95 02/02/22 07:31 98.7 F 59 L 18 158/63 97 02/02/22 04:00 98.0 F 58 L 18 139/63 96 02/01/22 22:36 71 16 153/69 96 02/01/22 19:38 97.5 F 75 17 134/63 94 L Pain Assessment - Last Documented Pain Intensity 0 Intake and Output: Intake & Output 01/31/22 02/01/22 02/02/22 02/03/22 11:59 11:59 11:59 11:59 Intake Total 2240 3380 1440 480 Output Total 2250 950 1650 Balance -10 2430 -210 480 Lab Results: Lab Results-Last 24 Hours 02/01/22 02/02/22 02/02/22 Range/Units 21:23 04:40 04:40 WBC 6.0 (4.0-10.5) x10^3/uL RBC 3.51 L (4.1-5.6) x10^6/uL Hgb 10.7 L (12.5-18.0) g/dL Hct 34.0 L (42-50) % MCV 96.9 (78-100) fL MCH 30.5 (26-32) pg MCHC 31.5 L (32-36) g/dL RDW 13.8 (11.5-14.0) % Plt Count 217 (150-450) x10^3/uL MPV 8.6 (7.5-11.0) fL Gran % 52.1 (36.0-66.0) % Immature Gran % (Auto) 0.2 (0.00-0.4) % Nucleat RBC Rel Count 0.0 (0.00-0.1) % Eos # (Auto) 0.20 (0-0.5) x10^3/uL Immature Gran # (Auto) 0.01 (0.00-0.03) x10^3u/L Absolute Lymphs (auto) 1.97 (1.0-4.6) x10^3/uL Absolute Monos (auto) 0.68 (0.0-1.3) x10^3/uL Absolute Nucleated RBC 0.00 (0.00-0.01) x10^3u/L Lymphocytes % 32.6 (24.0-44.0) % Monocytes % 11.3 (0.0-12.0) % Eosinophils % 3.3 (0.00-5.0) % Basophils % 0.5 (0.0-0.4) % Absolute Granulocytes 3.15 (1.4-6.9) x10^3/uL Basophils # 0.03 (0-0.4) x10^3/uL Sodium 136 L (137-145) mmol/L Potassium 3.9 (3.5-5.1) mmol/L Chloride 105 (98-107) mmol/L Carbon Dioxide 26 (22-30) mmol/L Anion Gap 8.3 (5-15) MEQ/L BUN 27 H (9-20) mg/dL Creatinine 1.21 (0.66-1.25) mg/dL Estimated GFR > 60.0 ML/MIN Glucose 171 H (74-106) mg/dL POC Glucometer 276 H (74 to 106) mg/dL Calcium 8.8 (8.4-10.2) mg/dL 02/02/22 02/02/22 02/02/22 Range/Units 07:11 11:10 16:22 WBC (4.0-10.5) x10^3/uL RBC (4.1-5.6) x10^6/uL Hgb (12.5-18.0) g/dL Hct (42-50) % MCV (78-100) fL MCH (26-32) pg MCHC (32-36) g/dL RDW (11.5-14.0) % Plt Count (150-450) x10^3/uL MPV (7.5-11.0) fL Gran % (36.0-66.0) % Immature Gran % (Auto) (0.00-0.4) % Nucleat RBC Rel Count (0.00-0.1) % Eos # (Auto) (0-0.5) x10^3/uL Immature Gran # (Auto) (0.00-0.03) x10^3u/L Absolute Lymphs (auto) (1.0-4.6) x10^3/uL Absolute Monos (auto) (0.0-1.3) x10^3/uL Absolute Nucleated RBC (0.00-0.01) x10^3u/L Lymphocytes % (24.0-44.0) % Monocytes % (0.0-12.0) % Eosinophils % (0.00-5.0) % Basophils % (0.0-0.4) % Absolute Granulocytes (1.4-6.9) x10^3/uL Basophils # (0-0.4) x10^3/uL Sodium (137-145) mmol/L Potassium (3.5-5.1) mmol/L Chloride (98-107) mmol/L Carbon Dioxide (22-30) mmol/L Anion Gap (5-15) MEQ/L BUN (9-20) mg/dL Creatinine (0.66-1.25) mg/dL Estimated GFR ML/MIN Glucose (74-106) mg/dL POC Glucometer 154 H 246 H 342 H (74 to 106) mg/dL Calcium (8.4-10.2) mg/dL Multi-Disciplinary Progress Notes: Multi-Disciplinary Progress Notes 02/02/22 13:50 Case Management Note by Soraya Rodriguez S/W [facility]- THEY ARE ABLE TO ACCEPT PATIENT AND INSTRUCT PATIENT ON INFUSIONS AND DO HIS DRESSING CHANGES ORDERS. THEY ARE CONCERNED IF PATIENT WILL ACTUALLY DO THE INFUSIONS- THEY REQUEST FOR [facility] TO START WORKING WITH PATIENT ON THIS. PRIMARY NURSE NOTIFIED TO TRY AND LET PATIENT GROOMING ASSISTANT INFUSION LINE AFTER SHE GETS IT READY. SHE VERIFIED UNDERSTANDING. PATIENT REPORTS HE FEELS LIKE HE WILL BE ABLE TO DO THE INFUSIONS WITHOUT TROUBLE. [facility] NOTIFIED OF DC PLANS FOR 02/03- THEY WILL DELIVER MEDS AFTER 3PM PLANS FOR DC FOLLOWS: PATIENT TO GET 0600 AND 1400 DOSE OF ANTIBIOTICS HERE AT [facility] 02/03 PATIENT TO BE PICKED UP AT 1430 02/03 (PATIENT ARRANGING WITH FAMILY) [facility] TO DELIVER MEDS AFTER 3PM 02/03. [facility] IS SCHEDULED TO SEE [id number]/29/22 AT 0800 SO THEY CAN ASSIST PATIENT WITH FIRST INFUSION. ROLLING WALKER ALSO ORDERED THRU [facility] AND SCHEDULED FOR DELIVERY TODAY S/W PATIENT ABOUT PLANS- HE IS AGREEABLE TO PLAN [facility] WILL NEED NOTIFIED AGAIN AT TIME OF DC AT [phone]. THEY WILL NEED FAXED THE DC INSTRUCTIONS, DC MED LIST AND DC SUMMARY ( IF AVAILABLE) TO [phone] Initialized on 02/02/22 13:50 - END OF NOTE 02/02/22 10:34 Case Management Note by Soraya Rodriguez PROGRESS NOTE WITH DRESSING CHANGE INFO FAXED TO [facility] AT THIS TIME Initialized on 02/02/22 10:34 - END OF NOTE Assessment/Plan (1) Diabetic foot infection Current Visit: Yes Status: Chronic Assessment & Plan: home tomorrow on IV antibiotic per Dr Saunders Code(s): E11.628 - TYPE 2 DIABETES MELLITUS WITH OTHER SKIN COMPLICATIONS; L08.9 - LOCAL INFECTION OF THE SKIN AND SUBCUTANEOUS TISSUE, UNSP (2) Hypoglycemia associated with type 2 diabetes mellitus Current Visit: Yes Status: Resolved Assessment & Plan: insulin Lantus held for 24hrs now restart at reduced dose Code(s): E11.649 - TYPE 2 DIABETES MELLITUS WITH HYPOGLYCEMIA WITHOUT COMA (3) Diarrhea Current Visit: Yes Status: Acute Assessment & Plan: c diff testing ordered Code(s): R19.7 - DIARRHEA, UNSPECIFIED
[2022-02-02] MEDS ORDERED: Lantus Insulin SQ SCH (22:00)
[2022-02-03 05:07] LABS: Absolute Neutrophil Ct (ANC) 4.08 x10^3/uL (1.4-6.9); Basophil (Absolute #) 0.04 x10^3/uL (0-0.4); Eosinophil % 2.8 % (0.00-5.0); Eosinophil (Absolute #) 0.21 x10^3/uL (0-0.5); Hematocrit 34.1 % (42-50); Hemoglobin 10.6 g/dL (12.5-18.0); Lymphocyte (Absolute #) 2.47 x10^3/uL (1.0-4.6); Lymphocytes % 32.9 % (24.0-44.0); Mean Cell Volume 95.5 fL (78-100); Mean Corpuscular Hemoglobin 29.7 pg (26-32); Mean Corpuscular Hgb Concent. 31.1 g/dL (32-36); Mean Platelet Volume 8.7 fL (7.5-11.0); Monocyte (Absolute #) 0.68 x10^3/uL (0.0-1.3); Monocytes % 9.1 % (0.0-12.0); Neutrophil % 54.4 % (36.0-66.0); Platelet Count 230 x10^3/uL (150-450); Red Blood Count 3.57 x10^6/uL (4.1-5.6); Red Cell Distribution Width 13.7 % (11.5-14.0); White Blood Count 7.5 x10^3/uL (4.0-10.5)
[2022-02-03] MEDS: PIPERACILLIN/TAZOBACTAM 3.375 GM in Sodium Chloride 100ML MINI-BAG PLUS 100 ML IV SCH ×2 (05:25→12:37)
[2022-02-03 05:29] LABS: BLOOD UREA NITROGEN 35 mg/dL (9-20); CHLORIDE 105 mmol/L (98-107); Calcium 8.7 mg/dL (8.4-10.2); Carbon Dioxide 25 mmol/L (22-30); Creatinine 1 1.17 mg/dL (0.66-1.25); EST GLOMERULAR FILTRATION RATE > 60.0 ML/MIN; Glucose 181 mg/dL (74-106); Potassium 3.9 mmol/L (3.5-5.1); SODIUM 134 mmol/L (137-145)
[2022-02-03] MEDS: Tricor 145 MG PO SCH (10:52)
[2022-02-03] MEDS: Zetia 10 MG PO SCH (10:52)
[2022-02-03] MEDS: Bystolic 5 MG PO SCH (10:52)
[2022-02-03] MEDS: ZYLOPRIM 100 MG PO SCH (10:53)
[2022-02-03] MEDS: Effexor XR 75 MG PO SCH (10:53)
[2022-02-03] MEDS: ECOTRIN 81 MG PO SCH (10:56)
[2022-02-03] MEDS: ZOCOR 20MG PO SCH (10:56)
[2022-02-03] MEDS: FOLTX (FOLBIC) PO SCH (10:59)
[2022-02-03] MEDS: Dakin's Soln FULL STRENGTH TP SCH (11:00)
--- NOTE | 2022-02-03 11:36 | PCM.DCORD ---
- Discharge Disposition: HOME HEALTH SERVICE Condition: Good Prescriptions: New Cefepime HCl 2 gm [Maxipime 2 GM] 2 g IV Q12H #24 Continue Allopurinol 100 mg [Zyloprim 100 mg] 200 mg PO BID Aspirin EC 325 mg [Ecotrin 325 MG] 81 mg PO DAILY Pantoprazole Sodium 40 mg PO UD PRN PRN Reason: gerd Rosuvastatin Calcium [Ezallor Sprinkle] 20 mg PO DAILY Venlafaxine HCl [Venlafaxine HCl ER] 150 mg PO BID Fenofibrate 67 mg PO DAILY Bisoprolol Fumarate 5 mg PO DAILY Montelukast Sodium 10 mg [Singulair 10 MG] 10 mg PO DAILY PRN PRN PRN Reason: Insomnia Cyclobenzaprine HCl 10 mg [Cyclobenzaprine 10 MG] 5 mg PO QID PRN PRN PRN Reason: Pain Chlordiazepoxide/Clidinium Br [Librax Capsule] 1 cap PO DAILY PRN PRN PRN Reason: ibs Ezetimibe 10 mg [Zetia 10 MG] 10 mg PO DAILY Insulin Degludec [Tresiba Flextouch U-100] 120 unit SQ DAILY Insulin Aspart [Novolog] See Rx Instructions .ROUTE .COMPLEX Amlodipine Besylate 5 mg [Norvasc 5 mg] 5 mg PO BID B12/Levomefolate Calcium/B-6 [Folbic Rf Tablet] 1 tab PO DAILY Hydrocodone/Acetaminophen [Hydrocodone-Acetamin 5-325 mg] 1 tab PO DAILY PRN PRN PRN Reason: Pain Instructions: Peripherally-Inserted Central Catheter (DC), Cefepime Additional Instructions: [facility] IS SCHEDULED 02/04/22 @0800 TO COME IN TO INSTRUCT YOU ON YOUR FIRST INFUSION [facility] WILL BE DELIVERING YOUR MEDS 02/03 AFTER 1500 THEIR PHONE NUMBER IS [phone] YOU NEED CREATININE CLEARANCE CHECKED TWICE A WEEK [facility] TO DO DRESSING CHANGES MWF FOLLOWS:SALINE WET TO DRY WITH DAKINS WASHES MAINTAIN NON WT BEATING STATUS ON LEFT FOOT Follow up with: SKYLAR ARELLANO DPM [ACTIVE STAFF] - 02/16/22 10:00 am PAM PUENTES MD [Primary Care Provider] - 02/15/22 1:45 pm
[2022-02-03 12:17] VITALS: BP 118/65; PULSE 96; O2SAT 94
[2022-02-03] MEDS: HUMALOG SQ PRN (12:38)
[2022-02-03 13:07] LABS: 027 TOX PROD PRESUMPTIVE NEGATIVE (NEGATIVE); TOXIGENIC C. DIFF ORG NEGATIVE (NEGATIVE)
--- NOTE | 2022-02-24 11:24 | PCM.DS ---
Discharge Summary Date of Admission: 01/27/22 09:16 Date of Discharge: 02/03/22 Admitting Physician: JESSICA BLAS Primary Care Provider: PAM PUENTES Allergies Allergies verapamil [From Calan] Allergy (Severe, Verified 02/23/22 09:33) Difficulty Breathing causes slow heart rate then pt goes into CHF brompheniramine maleate [From Dimetapp (brompheniramine-PPA)] Allergy (Intermediate, Verified 02/17/22 13:19) Rapid [facility] states "just increases my heart a little" ciprofloxacin [From Cipro] Allergy (Intermediate, Verified 02/17/22 13:19) ciprofloxacin HCl [From Cipro] Allergy (Intermediate, Verified 02/17/22 13:19) Headache states "stiff neck and bad headaches" phenylpropanolamine HCl [From Dimetapp (brompheniramine-PPA)] Allergy (Intermediate, Verified 02/17/22 13:19) [facility] Summary - Hospital Course Hospital Course: Patient admitted by Dr Jackson ,Podiatry - see his discharge notes. Medical management summary note see 02/02/22 note. (1) Charcot arthropathy of midfoot Current Visit: Yes Status: Acute Assessment & Plan: per Osito Saunders Patient examination evaluation Radiographs reviewed and discussed with patient demonstrating planing of bones to the left foot with delayed primary closure. Debridement of wound to the plantar aspect of surgical extremity demonstrating postdebridement measurement of 3.6 x 1.1 x 0.5 at this time significant improvement of wound at this time. Failed out patient abx at this time growing psuedomonas. d/c w/ PICC line and abx Cefipime 2g q 12h. kidney function to be checked every other day. If Creatinine drops below 30 2g q24h. Home [facility] MWF for dressing changes. Saline wet to dry with dakins washes. Patient defers [facility] facility placement for continued abx at this time. Ok for d/c if medicine clears for discharge. Code(s): M14.679 - CHARCOT'S JOINT, UNSPECIFIED ANKLE AND FOOT (2) Falls frequently Current Visit: No Status: Acute Code(s): R29.6 - REPEATED FALLS (3) Diabetic ulcer of left foot Current Visit: No Status: Chronic Code(s): E11.621 - TYPE 2 DIABETES MELLITUS WITH FOOT ULCER; L97.529 - NON-PRESSURE CHRONIC ULCER OTH PRT LEFT FOOT W UNSP SEVERITY (4) Diabetes mellitus type 2, insulin dependent Current Visit: No Status: Chronic Code(s): E11.9 - TYPE 2 DIABETES MELLITUS WITHOUT COMPLICATIONS; Z79.4 - ROLL EXAMINER (CURRENT) USE OF INSULIN (5) Diabetic foot infection Current Visit: Yes Status: Chronic Assessment & Plan: Pseudomonas per culture continue Nael ,[facility] Guille Rouse for Zosyn Code(s): E11.628 - TYPE 2 DIABETES MELLITUS WITH OTHER SKIN COMPLICATIONS; L08.9 - LOCAL INFECTION OF THE SKIN AND SUBCUTANEOUS TISSUE, UNSP (6) Hypoglycemia associated with type 2 diabetes mellitus Current Visit: Yes Status: resolved Assessment & Plan: Insulin dose adjusted Code(s): E11.649 - TYPE 2 DIABETES MELLITUS WITH HYPOGLYCEMIA WITHOUT COMA (7) Diarrhea Current Visit: Yes Status: Acute Assessment & Plan: test for c.diff- NEGATIVE Code(s): R19.7 - DIARRHEA, UNSPECIFIED (8) IBS (irritable bowel syndrome) Current Visit: Yes Status: Chronic Qualifiers: Irritable bowel syndrome type: with diarrhea Qualified Code(s): K58.0 - Irritable bowel syndrome with diarrhea Assessment & Plan: uses Librax at home,Rx Levsin for now-prn - Vitals & Intake/Output Vital Signs: Vital Signs Temperature 98.2 F 02/03/22 12:00 Pulse Rate 96 H 02/03/22 12:00 Respiratory Rate 16 02/03/22 12:00 Blood Pressure 118/65 02/03/22 12:00 O2 Sat by Pulse Oximetry 94 L 02/03/22 12:00 - Lab Result Diagrams: 02/03/22 05:01 02/03/22 05:01 Micro Results-Entire Visit: Microbiology 01/27/22 10:00 Wound Culture - Final Foot - Left Pseudomonas Aeruginosa - Procedures and Test Procedures and Tests throughout Hospitalization: Therapy Orders & Screens 01/26/22 10:21 PT Eval & Treat ( Order) ONCE Reason for Eval:: left diabetic foot ulcer, NWB to affected extremity Diagnosis: diabetic foot ulcer 01/26/22 10:22 OT Eval and Treat ( Order) ONCE Comment: Consulting Provider: Physician Instructions: Reason For Exam: 01/26/22 12:40 OT Screen per Nursing Assess ONCE Comment: Protocol Order Physician Instructions: Greater than 3 points order OT Admission Screening Reason For Exam: Triggered on Admission Diagnosis: soft tissue diabetic foot ulcer Open Wound/Cellutlitis/Pressure Ulcers: Yes Acute Fx/ORIF/Change in wt bearing status: Yes Severe MUSCULOSKELETAL pain: No ADL Dysfunction: No Acute CVA w/Hemiparesis/Hemiplegia: No Decreased Functional Mobility/Strength: No Sprain/Strain: No Acute Post-op Mobility Dysfunction: No Total Points: 10 PT Screen per Nursing Assess ONCE Comment: Protocol Order Physician Instructions: Greater than 3 points order PT Admission Screenin Reason For Exam: Triggered on Admission Diagnosis: soft tissue diabetic foot ulcer Open Wound/Cellutlitis/Pressure Ulcers: Yes Acute Fx/ORIF/Change in wt bearing status: Yes Severe MUSCULOSKELETAL pain: No ADL Dysfunction: No Acute CVA w/Hemiparesis/Hemiplegia: No Decreased Functional Mobility/Strength: No Sprain/Strain: No Acute Post-op Mobility Dysfunction: No Total Points: 10 Discharge Exam General Appearance: no apparent distress Neurologic Exam: alert, oriented x 3 Respiratory Exam: normal breath sounds Cardiovascular Exam: regular rate/rhythm Gastrointestinal/Abdomen Exam: soft (nontender) Extremity Exam: other (see Dr Saunders exam) Final Diagnosis/Problem List - Final Discharge Diagnosis/Problem (1) Diabetic foot infection Status: Chronic Assessment & Plan: See Dr Jackson discharge plan Code(s): E11.628 - TYPE 2 DIABETES MELLITUS WITH OTHER SKIN COMPLICATIONS; L08.9 - LOCAL INFECTION OF THE SKIN AND SUBCUTANEOUS TISSUE, UNSP (2) Hypoglycemia associated with type 2 diabetes mellitus Status: Resolved Assessment & Plan: Insulin adjusted Code(s): E11.649 - TYPE 2 DIABETES MELLITUS WITH HYPOGLYCEMIA WITHOUT COMA (3) Diarrhea Status: Resolved Assessment & Plan: IBS has Rx Librax. Cdiff negative Code(s): R19.7 - DIARRHEA, UNSPECIFIED - Discharge Disposition: HOME HEALTH SERVICE Condition: Good Prescriptions: Continue Allopurinol 100 mg [Zyloprim 100 mg] 200 mg PO BID Aspirin EC 325 mg [Ecotrin 325 MG] 81 mg PO DAILY Pantoprazole Sodium 40 mg PO UD PRN PRN Reason: gerd Rosuvastatin Calcium [Ezallor Sprinkle] 20 mg PO DAILY Venlafaxine HCl [Venlafaxine HCl ER] 150 mg PO BID Fenofibrate 67 mg PO DAILY Bisoprolol Fumarate 5 mg PO DAILY Montelukast Sodium 10 mg [Singulair 10 MG] 10 mg PO DAILY PRN PRN PRN Reason: Insomnia Cyclobenzaprine HCl 10 mg [Cyclobenzaprine 10 MG] 5 mg PO QID PRN PRN PRN Reason: Pain Chlordiazepoxide/Clidinium Br [Librax Capsule] 1 cap PO DAILY PRN PRN PRN Reason: ibs Ezetimibe 10 mg [Zetia 10 MG] 10 mg PO DAILY Insulin Aspart [Novolog] See Rx Instructions .ROUTE .COMPLEX Amlodipine Besylate 5 mg [Norvasc 5 mg] 5 mg PO BID B12/Levomefolate Calcium/B-6 [Folbic Rf Tablet] 1 tab PO DAILY Hydrocodone/Acetaminophen [Hydrocodone-Acetamin 5-325 mg] 1 tab PO DAILY PRN PRN PRN Reason: Pain Changed Insulin Degludec [Tresiba Flextouch U-100] 50 unit SQ DAILY #0 Instructions: Peripherally-Inserted Central Catheter (DC), Cefepime Additional Instructions: GUILLE SANTACRUZ [facility] IS SCHEDULED 02/04/22 @0800 TO COME IN TO INSTRUCT YOU ON YOUR FIRST INFUSION HENNA SWANSON WILL BE DELIVERING YOUR MEDS 02/03 AFTER 1500 THEIR PHONE NUMBER IS [phone] YOU NEED CREATININE CLEARANCE CHECKED TWICE A WEEK [facility] TO DO DRESSING CHANGES MWF FOLLOWS:SALINE WET TO DRY WITH DAKINS WASHES MAINTAIN NON WT BEATING STATUS ON LEFT FOOT Follow up with: SKYLAR ARELLANO DPM [ACTIVE STAFF] - 02/16/22 10:00 am PAM PUENTES MD [Primary Care Provider] - 02/15/22 1:45 pm
== END 2022-02-03 14:56 | disposition home health service (06) | DRG 639 ==
LOC: MED SURG 09:16 → OBSVTOIN 01-27 09:16
PROVIDERS: ADMIT Family Medicine; ATTEND Family Medicine
DX: E11.621 Type 2 diabetes mellitus with foot ulcer (principal); M14.672 Charcot's joint, left ankle and foot; R29.6 Repeated falls; L97.529 Non-pressure chronic ulcer of other part of left foot with unspecified severity; I10 Essential (primary) hypertension; I25.10 Atherosclerotic heart disease of native coronary artery without angina pectoris; E78.5 Hyperlipidemia, unspecified; E11.649 Type 2 diabetes mellitus with hypoglycemia without coma; R19.7 Diarrhea, unspecified; K58.0 Irritable bowel syndrome with diarrhea; Z79.4 Long term (current) use of insulin; Z85.828 Personal history of other malignant neoplasm of skin; Z79.899 Other long term (current) drug therapy; Z20.828 Contact with and (suspected) exposure to other viral communicable diseases
CPT/HCPCS: 0241U; 11042; 11043; 36415; 36573; 73630; 76937; 77001; 80048; 80053; 82947; 83036; 83605; 84134; 85025; 85610; 85652; 85730; 86140; 87070; 87077; 87186; 87493; 97110; 97161; 97165; 97530; 99024; 99213; 99222; 99233; G0378; 87324; C1769; J1642; J1817; A9270-GY

== ENCOUNTER 2022-02-23 09:06 | Day surgery (SDC) | payer MEDICARE ==
[~2022-02-23 09:06] MED LIST: Marcaine Mpf 0.5% Vial 30 Ml ONE; Xylocaine 1% Vial 30 ML PF IJ ONE
[2022-02-23] MEDS ORDERED: CEFAZOLIN 2 GM-D5W BAG** 2 GM/50 ML ML IV SCH (09:30)
[2022-02-23] MEDS ORDERED: Sodium Chloride 0.9% 1000 ML 1,000 ML IV SCH (09:30)
[2022-02-23 13:26] VITALS: O2SAT 97
[2022-02-23 13:31] VITALS: BP 134/62; PULSE 63
--- NOTE | 2022-02-24 08:00 | OP ---
SURGERY DATE/TIME: 02/23/2022 1141 PREOPERATIVE DIAGNOSES: 1) Diabetic foot ulcer. 2) Charcot osteoarthropathy. 3) Pain left foot. POSTOPERATIVE DIAGNOSES: 1) Diabetic foot ulcer. 2) Charcot osteoarthropathy. 3) Pain left foot. PROCEDURES: 1) Incision and drainage with bone debridement. 2) Application of synthetic skin substitute. SURGEON: Manuel Heck DPM. HELMET COVERER: None. ANESTHESIA: Local. HEMOSTASIS: Pressure dressing. ESTIMATED BLOOD LOSS: Less than 5 cc. INJECTABLES: 10 cc of 1:1 mixture of 1% lidocaine plain and 0.5% bupivacaine plain injected in a V block-type fashion. INDICATION FOR SURGERY: Manjit is a very pleasant 76-year-old male well known to my service for concerns of Charcot osteoarthropathy to the left foot with ulceration. The patient did have recent surgical intervention to the left foot due to pressure to the left foot secondary to his cuboid subluxation. The patient did have ulceration prior to surgical intervention. An attempt at closure was made however the wound remained following the procedure. At this time the patient has cleared any signs of infection and has progressed significantly with wound healing. However there is some indication of residual exposed bone and in order to expedite the patients healing, discussion was made with the patient in regards to proceeding with surgical intervention. At this time the patient understands all risks, benefits and complications of surgical intervention including but not limited to infection, hematoma, seroma, possibility of delayed healing, nonwound healing and possibility of failure of surgical intervention. No guarantees were provided as to the outcome of surgery. At this time the patient wishes to proceed. DESCRIPTION OF PROCEDURE AND FINDINGS: The patient is brought into the OR and placed on the OR table in the supine position. At this time the left foot was prepped and draped in the typical sterile fashion and lowered onto the surgical field. At this time a 15 blade was utilized to incise the skin at the lateral aspect of the proximal and distal aspects of the wound. Debridement at this time was carried out utilizing a combination of rongeurs, curettes, sharp and blunt dissection. At this time curettage was performed of the bone centrally until healthy pin point bleeding was identified. Copious amounts of sterile saline were then utilized to flush the surgical site and dried. At this time a 2 x 2 Integra synthetic skin substitute was applied to the patients left foot bolstering the center of it to the wound base. At this time 3-0 Nylon was then utilized to secure the edges and a bolster dressing was applied consisting of Adaptic, 4x4, Kerlix and MELISSA. The patient then was returned to the preoperative area with vital signs stable and vascular status intact. The patient handled the anesthesia as well as the procedure without significant complication. Postoperative orders as indicated in the patient's discharge chart.
== END 2022-02-23 13:15 | disposition home or self-care (01) ==
LOC: SDC 09:06
PROVIDERS: ATTEND Podiatrist Foot & Ankle Surgery
DX: E11.621 Type 2 diabetes mellitus with foot ulcer (principal); E11.610 Type 2 diabetes mellitus with diabetic neuropathic arthropathy; M79.672 Pain in left foot
CPT/HCPCS: 15275; 28005; 82947; J0690; J2001; Q4104

== ENCOUNTER 2022-05-25 18:39 | Emergency (ER) | payer MEDICARE ==
[2022-05-25] MEDS ORDERED: Sodium Chloride 0.9% 1000 ML 1,000 ML IV STA ×2 (19:11→20:47)
[2022-05-25] MEDS ORDERED: Sodium Chloride 0.9% 1000 ML 1,000 ML ONE ×2 (19:18→20:47)
[2022-05-25 19:49] LABS: Absolute Neutrophil Ct (ANC) 9.41 x10^3/uL (1.4-6.9); BASOPHIL % 0.1 % (0.0-0.4); Basophil (Absolute #) 0.01 x10^3/uL (0-0.4); Eosinophil (Absolute #) 0 x10^3/uL (0-0.5); IMMATURE GRAN # 0.04 x10^3u/L (0.00-0.03); IMMATURE GRAN % 0.3 % (0.00-0.4); Lymphocyte (Absolute #) 1.05 x10^3/uL (1.0-4.6); Lymphocytes % 9.2 % (24.0-44.0); Mean Cell Volume 95.5 fL (78-100); Mean Corpuscular Hemoglobin 29.7 pg (26-32); Mean Corpuscular Hgb Concent. 31.1 g/dL (32-36); Mean Platelet Volume 8.9 fL (7.5-11.0); Monocyte (Absolute #) 0.95 x10^3/uL (0.0-1.3); Monocytes % 8.3 % (0.0-12.0); Neutrophil % 82.1 % (36.0-66.0); Platelet Count 208 x10^3/uL (150-450); Red Blood Count 4.71 x10^6/uL (4.1-5.6); Red Cell Distribution Width 14.1 % (11.5-14.0); White Blood Count 11.5 x10^3/uL (4.0-10.5)
[2022-05-25 20:00] LABS: Appearance Clear (Clear); Bacteria None Seen /HPF (None Seen); Bilirubin Negative (Negative); Blood Negative (Negative); Epithelial Cells None Seen /HPF (None Seen); Glucose, Urine >=1000 mg/dL (Negative); Ketones 15 (Negative); Leukocyte Esterase Negative (Negative); Nitrite Negative (Negative); Protein,Urine Dip Trace (Negative); RBC 0-2 /HPF (0-5); Specific Gravity >=1.030 (1.005-1.030); Urobilinogen 0.2 mg/dL (0.2); WBC 0-2 /HPF (0-5)
[2022-05-25 20:12] LABS: Amphetamine,Urine NEGATIVE (NEGATIVE); Barbiturate,Urine NEGATIVE (NEGATIVE); Benzodiazepine,Urine POSITIVE (NEGATIVE); Cocaine,Urine NEGATIVE (NEGATIVE); Methadone,Urine NEGATIVE (NEGATIVE); Opiate,Urine NEGATIVE (NEGATIVE); PCP,Urine NEGATIVE (NEGATIVE); THC,Urine NEGATIVE (NEGATIVE)
[2022-05-25 20:22] LABS: ADD URINE CULTURE? NO (NO)
[2022-05-25 20:23] LABS: ALBUMIN 3.7 g/dL (3.5-5.0); ANION GAP 21.4 MEQ/L (5-15); BILIRUBIN,TOTAL 0.5 mg/dL (0.2-1.3); Calcium 8.6 mg/dL (8.4-10.2); Creatinine 1 1.65 mg/dL (0.66-1.25); EST GLOMERULAR FILTRATION RATE 43.3 ML/MIN; Potassium 4.7 mmol/L (3.5-5.1); Total Protein 7.1 g/dL (6.3-8.2)
--- NOTE | 2022-05-25 20:50 | ERPHSYRPT ---
- History of Present Illness Source: patient, family, EMS Exam Limitations: clinical condition Patient Subjective Stated Complaint: Pt was found on the floor at his home for an unknown amount of time Triage Nursing Assessment: Pt was brought to the ER by EMS, tachycardic, denies pain, large welt on his medial left back from some kind of a bite, BS was 458 for EMS, pt found with urine and BM on him, shivering, yellow bruising up and down raven legs, family found the room in a total shambles with the bed pulled apart and everything everywhere, pt is confused and doesn't know how long he was down, no diffulty breathing, pt had surgery on the bottom of his left foot rece ntly, foot is packed with wound dressing Physician History: 76 yo WM who lives alone was found down on his bedroom floor. Pt somewhat confused and unable to give a good history. Daughter found him on the floor and states that he could have been down for 1-2 days. He had a good airway upon arrival. He denies chest pain/focal weakness/dyspnea. Pt has a h/o DM/CABG/[place]/HTN/L diabetic foot ulcer. Occurred: other (1-2 days) Reason for Fall: unknown Injuries/Pain Location: back Loss of Consciousness: unsure Severity of Pain-Max: mild Severity of Pain-Current: mild Modifying Factors: Improves With: movement Associated Symptoms (Fall): denies symptoms Allergies/Adverse Reactions: verapamil [From Calan] Allergy (Severe, Verified 05/25/22 19:29) Difficulty Breathing causes slow heart rate then pt goes into CHF brompheniramine maleate [From Dimetapp (brompheniramine-PPA)] Allergy (Intermediate, Verified 05/25/22 19:29) Rapid Heart Beat states "just increases my heart a little" ciprofloxacin [From Cipro] Allergy (Intermediate, Verified 05/25/22 19:29) ciprofloxacin HCl [From Cipro] Allergy (Intermediate, Verified 05/25/22 19:29) Headache states "stiff neck and bad headaches" phenylpropanolamine HCl [From Dimetapp (brompheniramine-PPA)] Allergy (Intermediate, Verified 05/25/22 19:29) Rapid Heart Beat Home Medications: Allopurinol 100 mg [Zyloprim 100 mg] 200 mg PO DAILY 07/10/13 [History] Aspirin EC 325 mg [Ecotrin 325 MG] 81 mg PO DAILY 07/10/13 [History] Bisoprolol Fumarate 5 mg PO DAILY 06/08/21 [History] Fenofibrate 67 mg PO DAILY 06/08/21 [History] Pantoprazole Sodium 40 mg PO UD PRN 06/08/21 [History] Rosuvastatin Calcium [Ezallor Sprinkle] 20 mg PO DAILY 06/08/21 [History] Venlafaxine HCl [Venlafaxine HCl ER] 150 mg PO DAILY 06/08/21 [History] Amlodipine Besylate 5 mg [Norvasc 5 mg] 5 mg PO BID 11/17/21 [History] Chlordiazepoxide/Clidinium Br [Librax Capsule] 1 cap PO DAILY PRN PRN 11/17/21 [History] Cyclobenzaprine HCl 10 mg [Cyclobenzaprine 10 MG] 5 mg PO QID PRN PRN 11/17/21 [History] Ezetimibe 10 mg [Zetia 10 MG] 10 mg PO DAILY 11/17/21 [History] Insulin Aspart [Novolog] 0 units SQ UD 11/17/21 [History] Montelukast Sodium 10 mg [Singulair 10 MG] 10 mg PO DAILY PRN PRN 11/17/21 [History] B12/Levomefolate Calcium/B-6 [Folbic Rf Tablet] 1 tab PO DAILY 01/26/22 [History] Insulin Degludec [Tresiba Flextouch U-100] 120 unit SQ DAILY 05/25/22 [History] Hx Tetanus, Diphtheria Vaccination/Date Given: No Hx Influenza Vaccination/Date Given: Yes Hx Pneumococcal Vaccination/Date Given: No Travel Risk - International Travel Have you traveled outside of the country in past 3 weeks: No - Coronavirus Screening Are you exhibiting any of the following symptoms?: No Close contact with a COVID-19 positive Pt in past 14-21 Days: No - Vaccine Status Have you recieved a Covid-19 vaccination: Yes Fluorescent Lighting Model Maker: Moderna - Vaccination Dates Date of 2cond Vaccination (if applicable): april 2020 - Review of Systems Constitutional: No Symptoms Eyes: No Symptoms Ears, Nose, & Throat: No Symptoms Respiratory: No Symptoms Cardiac: No Symptoms Abdominal/Gastrointestinal: No Symptoms Genitourinary Symptoms: No Symptoms Skin: No Symptoms Neurological: No Symptoms Psychological: No Symptoms Endocrine: No Symptoms Hematologic/Lymphatic: No Symptoms Immunological/Allergic: No Symptoms - Past Medical History Pertinent Past Medical History: Yes Neurological History: Peripheral Neuropathy, Stroke ENT History: Cataracts, Glaucoma, Other Cardiac History: Coronary Artery Disease, High Cholesterol, Hypertension, Myocardial Infarction ([place]), Peripheral Vascular Disease Respiratory History: No Pertinent History Endocrine Medical History: Diabetes Type II, Hypoglycemia Musculoskeletal History: Arthritis GI Medical History: Hepatitis, Irritable Bowel History: No Pertinent History Psycho-Social History: Anxiety, Depression Male Reproductive Disorders: No Pertinent History Other Medical History: Hepatitis A in 1985 - Past Surgical History Past Surgical History: Yes Neuro Surgical History: No Pertinent History Cardiac: CABG, Cardiac Catheterization Respiratory: No Pertinent History Gastrointestinal: Cholecystectomy Genitourinary: No Pertinent History Musculoskeletal: No Pertinent History Male Surgical History: Vasectomy Other Surgical History: 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 - Social History Smoking Status: Former smoker Exposure to second hand smoke: No Drug Use: none Patient Lives Alone: Yes - Nursing Vital Signs Nursing Vital Signs: Initial Vital Signs Temperature 97.7 F 05/25/22 19:08 Pulse Rate 119 H 05/25/22 19:08 Respiratory Rate 29 H 05/25/22 19:08 Blood Pressure 133/78 05/25/22 19:08 O2 Sat by Pulse Oximetry 98 05/25/22 19:08 Pain Scale Pain Intensity 0 Tachy - Anmol Coma Score Best Eye Response ([place]): (4) open spontaneously Best Verbal Response ([place]): (4) confused conversation Best Motor Response ([place]): (6) obeys commands [place] Total: 14 - Physical Exam General Appearance: no apparent distress Head Injury: no evidence of injury Eye Exam: PERRL/EOMI, eyes nml inspection ENT Exam: airway nml, No evidence of ENT injury, No clear fluid (ears), No clear fluid (nose) Neck Exam: supple, trachea midline, normal inspection (C-spine NTTP), No Brudzinski, No Kernig's Respiratory/Chest Exam: rales (Faint rales B bases), No chest tenderness, No r espiratory distress Cardiovascular Exam: tachycardia Gastrointestinal Exam: soft, normal bowel sounds, No tenderness Back Exam: other (Erythematous area L infra-scapular area which is TTP), No CVA tenderness, No vertebral tenderness Extremity Exam: normal inspection, normal range of motion, pelvis stable Neurologic Exam: alert, cooperative, cartographic engineer II-XII nml as tested, sensation nml, confusion Skin Exam: normal color, warm, dry SpO2 Interpretation: normal SpO2: 97 O2 Delivery: Room Air - Course EKG Interpreted by Me: RATE (Sinus tach/Rate 119/Normal QT-Qtc/Diffuse ST segment depression) - CT Exams Head CT Interpretation: Discussed w/radiologist (CT head NAD) Cervical Spine CT Interpretation: Discussed w/radiologist (CT C-spine no fx) Chest CT Interpretation: Discussed w/radiologist (CT chest metastatic disease) Abdomen/Pelvis CT Interpretation: Discussed w/radiologist (Multiple liver mets) Ordered Tests: Active Orders 24 hr Category Date Time Status EKG-ER Only STAT Care 05/25/22 19:09 Active Alvarez [Catheter-[place] Alvarez] STAT Care 05/25/22 18:59 Active IV Insertion STAT Care 05/25/22 19:17 Active IV Insertion-2nd Peripheral STAT Care 05/25/22 19:17 Active POCT Glucose Check STAT Care 05/25/22 19:01 Active ABDOMEN AND PELVIS W/0 CONTRAS [CT] Stat Exams 05/25/22 19:26 Taken CERVICAL SPINE WO CONTRAST [CT] Stat Exams 05/25/22 19:26 Taken CHEST WITHOUT CONTRAST [CT] Stat Exams 05/25/22 19:27 Taken HEAD WITHOUT CONTRAST [CT] Stat Exams 05/25/22 19:28 Taken BLOOD CULTURE Stat Lab 05/25/22 21:13 Ordered CBC W DIFF Stat Lab 05/25/22 19:40 Completed CK-Creatinine Phosphokinase Stat Lab 05/25/22 19:40 Completed CMP Stat Lab 05/25/22 19:40 Completed CULTURE,URINE Stat Lab 05/25/22 19:00 Received Lactic Acid Stat Lab 05/25/22 19:43 Completed Lactic Acid Stat Lab 05/25/22 21:53 Received NT PRO BNPII Stat Lab 05/25/22 19:40 Completed PROTIME WITH INR Stat Lab 05/25/22 20:20 Completed PTT Stat Lab 05/25/22 20:20 Completed TROPONIN Q4H Lab 05/25/22 19:40 Completed TROPONIN Q4H Lab 05/26/22 03:15 Ordered UA W/RFX UR CULTURE Stat Lab 05/25/22 19:00 Completed Urine Triage Profile Stat Lab 05/25/22 19:17 Completed Medication Summary Discontinued Medications Generic Name Dose Route Start Last Admin Trade Name Jolene PRN Reason Stop Dose Admin Sodium Chloride 1,000 mls @ 999 mls/hr 05/25/22 19:11 05/25/22 20:23 Sodium Chloride 0.9% 1000 Ml IV 05/25/22 20:11 Infused .Q1H1M STA Infusion Sodium Chloride Confirm 05/25/22 19:18 Sodium Chloride 0.9% 1000 Ml Administered 05/25/22 19:19 Dose 1,000 mls @ ud .ROUTE .STK-MED ONE Sodium Chloride 1,000 mls @ 999 mls/hr 05/25/22 20:47 05/25/22 20:48 Sodium Chloride 0.9% 1000 Ml IV 05/25/22 21:47 999 mls/hr .Q1H1M STA Administration Sodium Chloride Confirm 05/25/22 20:47 Sodium Chloride 0.9% 1000 Ml Administered 05/25/22 20:48 Dose 1,000 mls @ ud .ROUTE .STK-MED ONE Piperacillin Sod/Tazobactam 100 mls @ 200 mls/hr 05/25/22 21:05 05/25/22 21:34 Sod 4.5 gm/ Sodium Chloride IV 05/25/22 21:34 200 mls/hr STAT ONE Administration Sodium Chloride Confirm 05/25/22 21:31 Sodium Chloride 100ml Mini-Bag Plus Administered 05/25/22 21:32 Dose 100 mls @ ud IV .STK-MED ONE Lorazepam Confirm 05/25/22 22:47 Lorazepam 2 Mg/1 Ml 2 Mg Vial Administered 05/25/22 22:48 Dose 2 mg .ROUTE .STK-MED ONE Lorazepam 1 mg 05/25/22 23:07 05/25/22 23:09 Lorazepam 2 Mg/1 Ml 2 Mg Vial IV 05/25/22 23:08 1 mg STAT ONE Administration Piperacillin Sod/Tazobactam Sod Confirm 05/25/22 21:31 Piperacillin/Tazobactam Sodium 4.5 Gm Vial Administered 05/25/22 21:32 Dose 4.5 gm IV .STK-MED ONE Lab/Rad Data: Laboratory Result Diagrams 05/25/22 19:40 05/25/22 19:40 Laboratory Results 05/25/22 05/25/22 05/25/22 Range/Units 20:20 20:20 19:43 WBC (4.0-10.5) x10^3/uL RBC (4.1-5.6) x10^6/uL Hgb (12.5-18.0) g/dL Hct (42-50) % MCV (78-100) fL MCH (26-32) pg MCHC (32-36) g/dL RDW (11.5-14.0) % Plt Count (150-450) x10^3/uL MPV (7.5-11.0) fL Gran % (36.0-66.0) % Immature Gran % (Auto) (0.00-0.4) % Nucleat RBC Rel Count (0.00-0.1) % Eos # (Auto) (0-0.5) x10^3/uL Immature Gran # (Auto) (0.00-0.03) x10^3u/L Absolute Lymphs (auto) (1.0-4.6) x10^3/uL Absolute Monos (auto) (0.0-1.3) x10^3/uL Absolute Nucleated RBC (0.00-0.01) x10^3u/L Lymphocytes % (24.0-44.0) % Monocytes % (0.0-12.0) % Eosinophils % (0.00-5.0) % Basophils % (0.0-0.4) % Absolute Granulocytes (1.4-6.9) x10^3/uL Basophils # (0-0.4) x10^3/uL PT 10.9 (9.4-12.5) SECONDS INR 1.00 (0.8-3.0) APTT < 20.0 L (25.1-36.5) SECONDS Sodium (137-145) mmol/L Potassium (3.5-5.1) mmol/L Chloride (98-107) mmol/L Carbon Dioxide (22-30) mmol/L Anion Gap (5-15) MEQ/L BUN (9-20) mg/dL Creatinine (0.66-1.25) mg/dL Estimated GFR ML/MIN Glucose (74-106) mg/dL Lactic Acid 2.3 H (0.4-2.0) Calcium (8.4-10.2) mg/dL Total Bilirubin (0.2-1.3) mg/dL AST (17-59) U/L ALT (0-50) U/L Alkaline Phosphatase (38-126) U/L Creatine Kinase (55-170) U/L Troponin I (0.000-0.034) ng/mL NT-Pro-B Natriuret Pep (<300) pg/mL Serum Total Protein (6.3-8.2) g/dL Albumin (3.5-5.0) g/dL Urine Color (Yellow) Urine Appearance (Clear) Urine pH (4.6-8.0) Ur Specific [place] (1.005-1.030) Urine Protein (Negative) Urine Glucose (UA) (Negative) mg/dL Urine Ketones (Negative) Urine Blood (Negative) Urine Nitrite (Negative) Urine Bilirubin (Negative) Urine Urobilinogen (0.2) mg/dL Ur Leukocyte Esterase (Negative) U Hyaline Cast (Auto) (0-2) /LPF Urine Microscopic RBC (0-5) /HPF Urine Microscopic WBC (0-5) /HPF Ur Epithelial Cells (None Seen) /HPF Urine Bacteria (None Seen) /HPF Urine Culture Reflexed (NO) Urine Opiates Level (NEGATIVE) Ur Methadone (NEGATIVE) Urine Barbiturates (NEGATIVE) Ur Phencyclidine (PCP) (NEGATIVE) Urine Amphetamine (NEGATIVE) U Benzodiazepine Level (NEGATIVE) Urine Cocaine (NEGATIVE) Urine Marijuana (THC) (NEGATIVE) Influenza Type A Ag NEGATIVE (NEGATIVE) Influenza Type B Ag NEGATIVE (NEGATIVE) RSV (PCR) NEGATIVE (NEGATIVE) SARS-CoV-2 (PCR) NEGATIVE (NEGATIVE) 05/25/22 05/25/22 05/25/22 Range/Units 19:40 19:40 19:40 WBC 11.5 H (4.0-10.5) x10^3/uL RBC 4.71 (4.1-5.6) x10^6/uL Hgb 14.0 (12.5-18.0) g/dL Hct 45.0 (42-50) % MCV 95.5 (78-100) fL MCH 29.7 (26-32) pg MCHC 31.1 L (32-36) g/dL RDW 14.1 H (11.5-14.0) % Plt Count 208 (150-450) x10^3/uL MPV 8.9 (7.5-11.0) fL Gran % 82.1 H (36.0-66.0) % Immature Gran % (Auto) 0.3 (0.00-0.4) % Nucleat RBC Rel Count 0.0 (0.00-0.1) % Eos # (Auto) 0 (0-0.5) x10^3/uL Immature Gran # (Auto) 0.04 H (0.00-0.03) x10^3u/L Absolute Lymphs (auto) 1.05 (1.0-4.6) x10^3/uL Absolute Monos (auto) 0.95 (0.0-1.3) x10^3/uL Absolute Nucleated RBC 0.00 (0.00-0.01) x10^3u/L Lymphocytes % 9.2 L (24.0-44.0) % Monocytes % 8.3 (0.0-12.0) % Eosinophils % 0.0 (0.00-5.0) % Basophils % 0.1 (0.0-0.4) % Absolute Granulocytes 9.41 H (1.4-6.9) x10^3/uL Basophils # 0.01 (0-0.4) x10^3/uL PT (9.4-12.5) SECONDS INR (0.8-3.0) APTT (25.1-36.5) SECONDS Sodium 142 (137-145) mmol/L Potassium 4.7 (3.5-5.1) mmol/L Chloride 109 H (98-107) mmol/L Carbon Dioxide 16 L* (22-30) mmol/L Anion Gap 21.4 H (5-15) MEQ/L BUN 80 H (9-20) mg/dL Creatinine 1.65 H (0.66-1.25) mg/dL Estimated GFR 43.3 ML/MIN Glucose 416 H (74-106) mg/dL Lactic Acid (0.4-2.0) Calcium 8.6 (8.4-10.2) mg/dL Total Bilirubin 0.50 (0.2-1.3) mg/dL AST 52 (17-59) U/L ALT 25 (0-50) U/L Alkaline Phosphatase 78 (38-126) U/L Creatine Kinase 1320 H (55-170) U/L Troponin I 0.071 H* (0.000-0.034) ng/mL NT-Pro-B Natriuret Pep 2880 (<300) pg/mL Serum Total Protein 7.1 (6.3-8.2) g/dL Albumin 3.7 (3.5-5.0) g/dL Urine Color (Yellow) Urine Appearance (Clear) Urine pH (4.6-8.0) Ur Specific [place] (1.005-1.030) Urine Protein (Negative) Urine Glucose (UA) (Negative) mg/dL Urine Ketones (Negative) Urine Blood (Negative) Urine Nitrite (Negative) Urine Bilirubin (Negative) Urine Urobilinogen (0.2) mg/dL Ur Leukocyte Esterase (Negative) U Hyaline Cast (Auto) (0-2) /LPF Urine Microscopic RBC (0-5) /HPF Urine Microscopic WBC (0-5) /HPF Ur Epithelial Cells (None Seen) /HPF Urine Bacteria (None Seen) /HPF Urine Culture Reflexed (NO) Urine Opiates Level (NEGATIVE) Ur Methadone (NEGATIVE) Urine Barbiturates (NEGATIVE) Ur Phencyclidine (PCP) (NEGATIVE) Urine Amphetamine (NEGATIVE) U Benzodiazepine Level (NEGATIVE) Urine Cocaine (NEGATIVE) Urine Marijuana (THC) (NEGATIVE) Influenza Type A Ag (NEGATIVE) Influenza Type B Ag (NEGATIVE) RSV (PCR) (NEGATIVE) SARS-CoV-2 (PCR) (NEGATIVE) 05/25/22 05/25/22 Range/Units 19:17 19:00 WBC (4.0-10.5) x10^3/uL RBC (4.1-5.6) x10^6/uL Hgb (12.5-18.0) g/dL Hct (42-50) % MCV (78-100) fL MCH (26-32) pg MCHC (32-36) g/dL RDW (11.5-14.0) % Plt Count (150-450) x10^3/uL MPV (7.5-11.0) fL Gran % (36.0-66.0) % Immature Gran % (Auto) (0.00-0.4) % Nucleat RBC Rel Count (0.00-0.1) % Eos # (Auto) (0-0.5) x10^3/uL Immature Gran # (Auto) (0.00-0.03) x10^3u/L Absolute Lymphs (auto) (1.0-4.6) x10^3/uL Absolute Monos (auto) (0.0-1.3) x10^3/uL Absolute Nucleated RBC (0.00-0.01) x10^3u/L Lymphocytes % (24.0-44.0) % Monocytes % (0.0-12.0) % Eosinophils % (0.00-5.0) % Basophils % (0.0-0.4) % Absolute Granulocytes (1.4-6.9) x10^3/uL Basophils # (0-0.4) x10^3/uL PT (9.4-12.5) SECONDS INR (0.8-3.0) APTT (25.1-36.5) SECONDS Sodium (137-145) mmol/L Potassium (3.5-5.1) mmol/L Chloride (98-107) mmol/L Carbon Dioxide (22-30) mmol/L Anion Gap (5-15) MEQ/L BUN (9-20) mg/dL Creatinine (0.66-1.25) mg/dL Estimated GFR ML/MIN Glucose (74-106) mg/dL Lactic Acid (0.4-2.0) Calcium (8.4-10.2) mg/dL Total Bilirubin (0.2-1.3) mg/dL AST (17-59) U/L ALT (0-50) U/L Alkaline Phosphatase (38-126) U/L Creatine Kinase (55-170) U/L Troponin I (0.000-0.034) ng/mL NT-Pro-B Natriuret Pep (<300) pg/mL Serum Total Protein (6.3-8.2) g/dL Albumin (3.5-5.0) g/dL Urine Color Yellow (Yellow) Urine Appearance Clear (Clear) Urine pH 5.0 (4.6-8.0) Ur Specific [place] >=1.030 A (1.005-1.030) Urine Protein Trace A (Negative) Urine Glucose (UA) >=1000 A (Negative) mg/dL Urine Ketones 15 A (Negative) Urine Blood Negative (Negative) Urine Nitrite Negative (Negative) Urine Bilirubin Negative (Negative) Urine Urobilinogen 0.2 (0.2) mg/dL Ur Leukocyte Esterase Negative (Negative) U Hyaline Cast (Auto) 3-5 A (0-2) /LPF Urine Microscopic RBC 0-2 (0-5) /HPF Urine Microscopic WBC 0-2 (0-5) /HPF Ur Epithelial Cells None Seen (None Seen) /HPF Urine Bacteria None Seen (None Seen) /HPF Urine Culture Reflexed NO (NO) Urine Opiates Level NEGATIVE (NEGATIVE) Ur Methadone NEGATIVE (NEGATIVE) Urine Barbiturates NEGATIVE (NEGATIVE) Ur Phencyclidine (PCP) NEGATIVE (NEGATIVE) Urine Amphetamine NEGATIVE (NEGATIVE) U Benzodiazepine Level POSITIVE (NEGATIVE) Urine Cocaine NEGATIVE (NEGATIVE) Urine Marijuana (THC) NEGATIVE (NEGATIVE) Influenza Type A Ag (NEGATIVE) Influenza Type B Ag (NEGATIVE) RSV (PCR) (NEGATIVE) SARS-CoV-2 (PCR) (NEGATIVE) - Progress Progress: improved Progress Note: 05/25/22 21:[address] Whelan at [facility] note and vital signs reviewed No food or housing insecurities noted Additional history per daughter 1L NS bolus x2 Zosyn 4.5 gms IV Pt stable when EMS assumed care of pt Pt is a full code 05/25/22 23:50 05/25/22 23:52 05/25/22 23:52 05/25/22 23:53 Counseled pt/family regarding: lab results, diagnosis, rad results Medical Desision Making - Independent Historian Additional History obtained from: Family - Diagnostic Testing Diagnostic test were ordered, analyzed, and reviewed by me: Yes Radiological Interpretation: Discussed w/ radiologist - Risk of complications The pt has a high risk of morbidity or mortality based on: Drug therapy requiring intensive monitoring for toxicity, Need for major surgery in patient with known risk factors, Need for emergency major surgery, Decision regarding hospitilization or escalation of hosp level of care, Decision not to resucitate, Need for parental consent - Departure Departure Disposition: Transfer Clinical Impression: Renal failure, Rhabdomyolysis, Metastasis to liver, Lung mass, Hyperglycemia, Sepsis, NSTEMI (non-ST elevated myocardial infarction) Condition: Stable Critical Care Time: Yes Critical Care Time(excluding separately billable procedures): Critical 105-134 mins Referrals: AURELIANO ORTIZ MD [Primary Care Provider] - Follow up/PCP as directed
[2022-05-25 20:53] LABS: PROTIME 10.9 SECONDS (9.4-12.5); PTT < 20.0 SECONDS (25.1-36.5)
[2022-05-25 21:01] LABS: INFLUENZA A NEGATIVE (NEGATIVE); INFLUENZA B NEGATIVE (NEGATIVE); RESPIRATORY SYNCTIAL VIRUS NEGATIVE (NEGATIVE); SARS-CoV-2 Xpert Express NEGATIVE (NEGATIVE)
[2022-05-25] MEDS ORDERED: PIPERACILLIN/TAZOBACTAM 4.5 GM in Sodium Chloride 100ML MINI-BAG PLUS 100 ML IV ONE (21:05)
[2022-05-25] MEDS ORDERED: Sodium Chloride 100ML MINI-BAG PLUS 100 ML IV ONE (21:31)
[2022-05-25] MEDS ORDERED: PIPERACILLIN/TAZOBACTAM IV ONE (21:31)
[2022-05-25] MEDS ORDERED: Ativan 2 MG/1 ML VIAL ONE (22:47)
[2022-05-25] MEDS ORDERED: Ativan 2 MG/1 ML VIAL IV ONE (23:07)
[2022-05-25 23:20] VITALS: BP 126/75; PULSE 114
[2022-05-25 23:46] VITALS: O2SAT 97
--- NOTE | 2022-05-26 08:52 | XRAY ---
Indication: Status post fall 3 days ago. Multiple contiguous axial images obtained through the head without contrast. Comparison: June 08, 2021 Again age-appropriate global atrophy and mild periventricular degenerative micro-ischemia. No acute intracranial hemorrhage, abnormal extra-axial fluid collection, or mass effect. Fourth ventricle is midline. Bony calvarium intact. Visualized paranasal sinuses and mastoid air cells are clear. Impression: Continued nonacute senile brain.
--- NOTE | 2022-05-26 08:54 | XRAY ---
Indication: Status post fall 3 days ago. Multiple contiguous axial images obtained through the cervical spine. Sagittal and coronal reformatted images obtained contrast. Comparison: None Osseous structures demineralized consistent with patient's age. Incidental anatomic variant for nonunited posterior arch C1. Axial images negative for acute fracture, suspicious bony lesions, or spinal canal stenosis. Minimal/mild multilevel degenerative endplate spurring greatest at C6-C7. Sagittal and coronal reformatted images demonstrates normal alignment with C6-C7 disc space narrowing. No acute compression fracture, subluxation, or jumped facet. Normal appearing cranial cervical junction. Visualized noncontrasted soft tissues demonstrates moderate bilateral carotid calcifications. CT chest reported separately. Impression: 1. Negative acute fracture/subluxation. 2. Osteopenia, multilevel degenerative changes, and bilateral carotid arteriosclerotic disease.
--- NOTE | 2022-05-26 08:58 | XRAY ---
Indication: Status post fall 3 days ago. Multiple contiguous axial images obtained through the chest without contrast. Comparison: None Lungs demonstrates multiple subcentimeter bilateral metastatic nodules. Incidental 1 cm right middle lobe calcified granuloma and minimal bibasilar fibrosis/scarring. No infiltrate or effusion. Heart not enlarged with CABG. Aorta is normal in course and caliber. Tiny mediastinal and right hilar calcified nodes. No pathologic mediastinal lymphadenopathy. Bony thorax intact with osteopenia, moderate degenerative changes throughout the spine, and sternotomy wires. CT abdomen/pelvis reported separately. Impression: Pulmonary metastasis, chronic bony findings, and old granulomatous disease.
--- NOTE | 2022-05-26 09:02 | XRAY ---
Indication: Status post fall 3 days ago. Multiple contiguous axial images obtained through the abdomen and pelvis without contrast. Comparison: June 08, 2021 CT chest reported separately. Noncontrasted stomach and bowel loops appear nonobstructed again with minimal descending and sigmoid diverticulosis without diverticulitis. Again cholecystectomy. No free fluid/air. Liver demonstrates new patchy hypodense lesions throughout worrisome for metastasis. Urinary bladder demonstrates new Alvarez balloon catheter in situ. Remaining pancreas, spleen, adrenal glands, kidneys, and ureters are unremarkable for noncontrast exam. There remains moderate scattered vascular calcifications including both renal/intrarenal arteries. No AAA. Osseous structures intact again with osteopenia, moderate degenerative changes throughout the spine,, remote L2 superior endplate fracture, and mild degenerative changes both hips. Stable bilateral fatty inguinal hernias again left greater than right. Impression: 1. New hepatic metastasis. 2. Again chronic findings including colonic diverticulosis, bilateral fatty inguinal hernias, arteriosclerotic disease, and chronic bony findings.
== END 2022-05-25 23:48 | disposition short-term general hospital (02) ==
LOC: ED 18:39
DX: A41.9 Sepsis, unspecified organism (principal); R65.20 Severe sepsis without septic shock; N17.9 Acute kidney failure, unspecified; M62.82 Rhabdomyolysis; I21.4 Non-ST elevation (NSTEMI) myocardial infarction; R91.8 Other nonspecific abnormal finding of lung field; C78.7 Secondary malignant neoplasm of liver and intrahepatic bile duct; E11.65 Type 2 diabetes mellitus with hyperglycemia; R41.0 Disorientation, unspecified; E78.5 Hyperlipidemia, unspecified; I10 Essential (primary) hypertension; E11.42 Type 2 diabetes mellitus with diabetic polyneuropathy; Z79.4 Long term (current) use of insulin; Z79.899 Other long term (current) drug therapy; Z20.828 Contact with and (suspected) exposure to other viral communicable diseases
CPT/HCPCS: 0241U; 36000; 36415; 51702; 70450; 71250; 72125; 74176; 80053; 80307; 81001; 82550; 82947; 83605; 83880; 84484; 85025; 85610; 85730; 87040; 87086; 93005; 96365; 96374; 99285; 99291; 99292; 96375; J2060; J2543